=== PATIENT | male | born 1945 | race Two or more races ===

== ENCOUNTER 2020-02-19 18:09 | Inpatient (IN) | payer MEDICARE, MEDICAID ==
[~2020-02-19] VITALS: Ht 167.6 cm; Wt 91.3 kg
[2020-02-19] MEDS ORDERED: Piperacillin/Tazobactam 3.375 GM in NS 110 ML IVPB ONE (18:15)
[2020-02-19] MEDS ORDERED: Vancomycin 1.5 GM in NS 275 ML IVPB ONE (18:15)
--- NOTE | 2020-02-19 18:24 | NUR ---
ED Nurse Note: Patient was brought [facility]-heel wound(gangrene). Patient presented AAO x3, VSS at this time, skin is very warm to touch. Patient's fever 102.8 at bed side. ER MD aware
--- NOTE | 2020-02-19 18:54 | Emergency Room Report ---
History of Present Illness General Chief Complaint: Wound Recheck/Suture Removal Source: Patient Present Illness HPI 75-year-old male history of hypertension history of right foot amputation presents with left foot ulcer that has been worsening over the past 15 days, patient is brought in from an acute rehab facility for evaluation, patient denies any fevers or chills he notices a left foot pain no aggravating relieving factors severity is mild, constant patient versus a sharp pain patient presents for evaluation of the foot ulcer Allergies: Coded Allergies: No Known Allergies (Unverified , 02/19/20) COVID-19 Screening Contact w/high risk pt: Yes Recent Travel to affected area: No Experienced COVID-19 symptoms?: Yes COVID-19 symptoms experienced: Flu-Like Symptoms Patient History Past Medical History: see triage record Reviewed Nursing Documentation: PMH: Agreed; PSxH: Agreed Nursing Documentation-PMH Hx Diabetes: Yes History Of Psychiatric Problem: Yes - SCHIZO, ANXIETY Review of Systems All Other Systems: negative except mentioned in HPI Physical Exam Vital Signs Date Time Temp Pulse Resp B/P (MAP) Pulse Ox O2 Delivery O2 Flow Rate FiO2 02/19/20 18:10 101.5 99 12 129/74 (92) 92 Room Air Sp02 EP Interpretation: reviewed, normal General Appearance: well appearing, no apparent distress, alert Head: normocephalic, atraumatic Eyes: bilateral eye PERRL, bilateral eye EOMI ENT: uvula midline, moist mucus membranes Neck: supple, thyroid normal, supple/symm/no masses Respiratory: lungs clear, no respiratory distress, no retraction, no accessory muscle use Cardiovascular #1: normal peripheral pulses, regular rate, rhythm, no edema, no gallop, no murmur Gastrointestinal: non tender, soft, no guarding, no rebound Musculoskeletal: other - Right foot: Chavez's, 1+ PT DP, ulcer at the base of the foot, with foul order, breakdown, stage I with some drainage Neurologic: alert, oriented x3 Psychiatric: mood/affect normal Skin: no rash, warm/dry Medical Decision Making Diagnostic Impression: Primary Impression: Diabetic foot infection ER Course 75-year-old male presents with infected diabetic foot, will order labs, will start Zosyn and vancomycin, patient will be admitted to the hospital for evaluation and treatment. Patient with infected ulcer Abx, fluids. Patient admitted to Dr. Lamas Laboratory Tests Test 02/19/20 19:00 02/19/20 20:08 White Blood Count 14.9 K/UL (4.8-10.8) H Red Blood Count 4.44 M/UL (4.70-6.10) L Hemoglobin 12.6 G/DL (14.2-18.0) L Hematocrit 40.3 % (42.0-52.0) L Mean Corpuscular Volume 91 FL (80-99) Mean Corpuscular Hemoglobin 28.4 PG (27.0-31.0) Mean Corpuscular Hemoglobin Concent 31.3 G/DL (32.0-36.0) L Red Cell Distribution Width 14.3 % (11.6-14.8) Platelet Count 324 K/UL (150-450) Mean Platelet Volume 6.4 FL (6.5-10.1) L Neutrophils (%) (Auto) 82.1 % (45.0-75.0) H Lymphocytes (%) (Auto) 10.9 % (20.0-45.0) L Monocytes (%) (Auto) 5.9 % (1.0-10.0) Eosinophils (%) (Auto) 0.7 % (0.0-3.0) Basophils (%) (Auto) 0.5 % (0.0-2.0) Prothrombin Time 9.9 SEC (9.30-11.50) Prothrombin Time INR 0.9 (0.9-1.1) Activated Partial Thromboplast Time 37 SEC (23-33) H Sodium Level 138 MMOL/L (136-145) Potassium Level 4.0 MMOL/L (3.5-5.1) Chloride Level 99 MMOL/L (98-107) Carbon Dioxide Level 29 MMOL/L (21-32) Anion Gap 10 mmol/L (5-15) Blood Urea Nitrogen 35 mg/dL (7-18) H Creatinine 1.6 MG/DL (0.55-1.30) H Estimated Glomerular Filtration Rate 42.5 mL/min (>60) Glucose Level 123 MG/DL (74-106) H Lactic Acid Level 1.10 mmol/L (0.4-2.0) Calcium Level 9.3 MG/DL (8.5-10.1) Phosphorus Level 3.1 MG/DL (2.5-4.9) Magnesium Level 2.3 MG/DL (1.8-2.4) Total Bilirubin 0.3 MG/DL (0.2-1.0) Aspartate Amino Transferase (AST) 53 U/L (15-37) H Alanine Aminotransferase (ALT) 54 U/L (12-78) Alkaline Phosphatase 194 U/L (46-116) H Total Creatine Kinase 78 U/L (26-308) Creatine Kinase MB 1.8 NG/ML (0.0-3.6) Creatine Kinase MB Relative Index 2.3 Troponin I 0.000 ng/mL (0.000-0.056) Pro-B-Type Natriuretic Peptide 276 pg/mL (0-125) H Total Protein 8.8 G/DL (6.4-8.2) H Albumin 2.7 G/DL (3.4-5.0) L Globulin 6.1 g/dL Albumin/Globulin Ratio 0.4 (1.0-2.7) L Lipase 77 U/L (73-393) Urine Color Pale yellow Urine Appearance Clear Urine pH 6 (4.5-8.0) Urine Specific [place] 1.010 (1.005-1.035) Urine Protein 2+ (NEGATIVE) H Urine Glucose (UA) 1+ (NEGATIVE) H Urine Ketones Negative (NEGATIVE) Urine Blood 3+ (NEGATIVE) H Urine Nitrite Negative (NEGATIVE) Urine Bilirubin Negative (NEGATIVE) Urine Urobilinogen Normal MG/DL (0.0-1.0) Urine Leukocyte Esterase 3+ (NEGATIVE) H Urine RBC 2-4 /HPF (0 - 0) H Urine WBC Tntc /HPF (0 - 0) H Urine Squamous Epithelial Cells None /LPF (NONE/OCC) Urine Bacteria Few /HPF (NONE) EKG Diagnostic Results EKG Time: 19:42 EP Interpretation: NSR rate 98 qtc 411, right axis deviation, no acute st elevations Rhythm Strip Diag. Results Rhythm Strip Time: 19:50 EP Interpretation: yes Rate: 99 Rhythm: NSR, no PVC's, no ectopy Chest X-Ray Diagnostic Results Chest X-Ray Diagnostic Results : Chest X-Ray Ordered: Yes # of Views/Limited/Complete: 1 View Indication: Other - Preoperative EP Interpretation: Yes Interpretation: no consolidation, no effusion, no pneumothorax, no acute cardiopulmonary disease Impression: No acute disease Electronically Signed by: Rui Rivera MD Other X-Ray Diagnostic Results Other X-Ray Diagnostic Results : X-Ray ordered: left foot # of Views/Limited Vs Complete: 3 View Indication: Pain EP Interpretation: Yes Interpretation: no dislocation, no fractures, other - soft tissue defect noted at heel Impression: Other - soft tissue defect noted at heel Electronically Signed by: Rui Rivera MD Last Vital Signs Date Time Temp Pulse Resp B/P (MAP) Pulse Ox O2 Delivery O2 Flow Rate FiO2 02/19/20 18:10 101.5 99 12 129/74 (92) 92 Room Air Disposition: ADMITTED INPATIENT Condition: Stable Referrals: Soham Lamas MD (PCP) Rui Rivera MD February 19, 2020 18:54
[2020-02-19] MEDS ORDERED: Acetaminophen 500mg (ES) tab ORAL ONE (19:15)
--- NOTE | 2020-02-19 19:20 | NUR ---
ED Nurse Note: pt received from MICHELL Gomez. pt appears to be in stable condition with abx infusing per ERMD orders. pt is noted to have a fever, skin is warm to touch. ERMD notified.
[2020-02-19 19:24] LABS: BASOPHILS % (AUTO) 0.5 % (0.0-2.0); EOSINOPHILS % (AUTO) 0.7 % (0.0-3.0); HEMATOCRIT 40.3 % (42.0-52.0); HEMOGLOBIN 12.6 G/DL (14.2-18.0); LYMPHOCYTES % (AUTO) 10.9 % (20.0-45.0); MEAN CORPUSCULAR VOLUME 91 FL (80-99); MONOCYTES % (AUTO) 5.9 % (1.0-10.0); NEUTROPHILS % (AUTO) 82.1 % (45.0-75.0); PLATELET COUNT 324 K/UL (150-450); RED BLOOD COUNT 4.44 M/UL (4.70-6.10); RED CELL DISTRIBUTION WIDTH 14.3 % (11.6-14.8); WHITE BLOOD COUNT 14.9 K/UL (4.8-10.8)
[2020-02-19 19:30] LABS: ANION GAP 10 mmol/L (5-15); BLOOD UREA NITROGEN 35 mg/dL (7-18); CALCIUM 9.3 MG/DL (8.5-10.1); CARBON DIOXIDE 29 MMOL/L (21-32); CHLORIDE 99 MMOL/L (98-107); CREATININE 1.6 MG/DL (0.55-1.30); SODIUM 138 MMOL/L (136-145)
[2020-02-19 19:43] LABS: ALANINE AMINOTRANSFERASE 54 U/L (12-78); ALBUMIN 2.7 G/DL (3.4-5.0); ALBUMIN/GLOBULIN RATIO 0.4 (1.0-2.7); ALKALINE PHOSPHATASE 194 U/L (46-116); ASPARTATE AMINO TRANSFERASE 53 U/L (15-37); BILIRUBIN,TOTAL 0.3 MG/DL (0.2-1.0); CKMB 1.8 NG/ML (0.0-3.6); CREATINE KINASE 78 U/L (26-308); PHOSPHORUS 3.1 MG/DL (2.5-4.9)
--- NOTE | 2020-02-19 19:45 | NUR ---
ED Nurse Note: pt was approved by ISAAC to eat, he was provided with sandwich and juice for nourishment. tolerated well, continues to have abx running. pt refusing to remove clothes and dress into hospital gown at this moment. IV in L AC is patent and intact with abx running.
[2020-02-19 20:08] VITALS: BP 134/82
--- NOTE | 2020-02-19 20:10 | NUR ---
ED Nurse Note: pt's temp recheck is 102.0, ERMD notified. pt appears to be mildly diaphoretic, skin is warm to touch. vital signs on cardiac cath rn are otherwise stable. will continue to monitor
[2020-02-19 20:14] LABS: INR 0.9 (0.9-1.1)
[2020-02-19 20:37] LABS: APPEARANCE,URINE CLEAR; BILIRUBIN, URINE NEGATIVE (NEGATIVE); COLOR,URINE PALE YELLOW; GLUCOSE, URINE (UA) 1+ (NEGATIVE); KETONES,URINE NEGATIVE (NEGATIVE); LEUKOCYTE ESTERASE ,URINE 3+ (NEGATIVE); NITRITE,URINE NEGATIVE (NEGATIVE); PH,URINE 6 (4.5-8.0); PROTEIN,URINE 2+ (NEGATIVE); UROBILINOGEN,URINE NORMAL MG/DL (0.0-1.0)
[2020-02-19 21:17] VITALS: BP 134/82
--- NOTE | 2020-02-19 23:00 | NUR ---
NURSE NOTES: Receive report from [facility] ED. Pt arrived @ 2150 via gurney. AAO x 4, syriac speaking, on room air. Vitals 133/46, 86HR, 18RR, 97.9F, 95% noted. All belongings reviewed. R foot amputation and has wound. L heel wound noted. Picture taken. IV on LAC intact and patent. Fall risk education and orientation to the room given. Verbally understanding. Admitted with supra pubic cath but pt said it is not working and asking a urinal. Swabs for covid, mrsa, vre done from ED. Meds list from [facility] missing and called to the facility but nobody answered the phone. Admission orders received from Dr. Lamas. Bed locked, lowest position, side rails up, alarm on, call light within reach. Will continue to monitor.
[2020-02-20] VITALS: BP 94/57
[2020-02-20] MEDS: Piperacillin/Tazobactam 3.375 GM in NS 110 ML IVPB SCH ×3 (01:29→18:00)
[2020-02-20 04:00] VITALS: BP 102/59
--- NOTE | 2020-02-20 04:00 | History and Physical Report ---
DATE OF ADMISSION: 02/19/2020 HISTORY OF PRESENT ILLNESS: There is a 75-year-old male who has past medical history of diabetes, hypertension, peripheral vascular disease, status post BKA, came to the emergency room for having left foot ulcer and having cellulitis involving the . The patient possibly has osteomyelitis. His pain level is 10 x 10 today and has oozing from the wound. The patient is currently not bedridden, wheelchair bound. PAST MEDICAL HISTORY: Significant for hypertension, diabetes, peripheral vascular disease, status post BKA, depression, anxiety, and history of alcohol abuse. MEDICATIONS: See the list. ALLERGIES: NKA. FAMILY HISTORY: Noncontributory. SOCIAL HISTORY: The patient lives at assisted. Mostly he is sitting in the chair. No distress. PHYSICAL EXAMINATION: VITAL SIGNS: Blood pressure is 150/90, pulse 74, respirations 18 to 24, temperature no fever. SKIN: Good skin turgor. HEENT: NAD. CHEST: Bilaterally clear. CARDIOVASCULAR: Regular rhythm. No gallop. No murmur. ABDOMEN: Bowel soft. EXTREMITIES: Left foot ulcer on the plantar surface redness and cellulitis GENITOURINARY: Deferred. LABORATORY DATA: His laboratory sodium 138, potassium 4, BUN 35, creatinine 1.6, glucose 153, alkaline phosphate 194. BNP was 276. Albumin is 2.7. His white counts are 15,000, hemoglobin 13 and hematocrit 39. Urine showing 3+ blood and 3+ leukocyte esterase and WBC TNTC. ASSESSMENT: 1. Nonhealing ulcer on the left foot. 2. Rule out osteomyelitis. 3. Cellulitis. 4. Hypertension. 5. Diabetes. 6. Acute renal insufficiency. 7. Degenerative arthritis. 8. Chronic pain. 9. History of alcohol abuse. PLAN: We will admit on medical floor. Start IV antibiotics. Wound care. Consider surgery. Podiatry consult and continue sliding scale, Accu-Chek and consider also ID consult. Arsen Lamas M.D. DR: Janet JOB#: [id number] CC:
[2020-02-20] MEDS: NovoLOG Insulin Flexpen SUBQ SCH ×4 (05:21→20:42)
[2020-02-20] MEDS: Heparin 5000 units/ml inj SUBQ SCH ×3 (05:29→22:39)
--- NOTE | 2020-02-20 06:42 | NUR ---
NURSE NOTES: Spoke with Denise from [facility] and said they will send meds list sabi.
--- NOTE | 2020-02-20 07:23 | NUR ---
NURSE NOTES: Report received from Chastity GALARZA. Patient seen on rounds, AXOx4, not in distress, tolerating room air. Nurse reports patient had febrile episode overnight at ED but is now afebrile. PIV on left AC patent and intact. Awaiting wound evaluation for left heel DTI and right foot amputation eschar. Bed low and locked, siderails up x2, call light within reach, instructed to call nurse for assistance. Will continue to monitor.
--- NOTE | 2020-02-20 07:37 | NUR ---
HAND-OFF: Report given to MICHELL Cr.
[2020-02-20 08:00] VITALS: BP 112/58
[2020-02-20] MEDS: HYDROcodone/Acetamin 5/325 tab ORAL PRN (09:01)
--- NOTE | 2020-02-20 10:29 | NUR ---
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
--- NOTE | 2020-02-20 10:30 | NUR ---
CHARGE NURSE NOTE: Spoke with , notified him that pt needs an urology consult (suprapubic cath. is not working). He will see pt in the evening.
[2020-02-20] MEDS ORDERED: Gadavist 7.5mMol/7.5ml vial IV PRN (10:45)
--- NOTE | 2020-02-20 11:31 | NUR ---
NURSE NOTES: Dr. Martinez (podiatry) came to see patient. Updated on current ATB regimen and MRI orders. Received orders to treat patient's wound with betadine QD until MRI is done. Orders noted and carried out.
--- NOTE | 2020-02-20 11:34 | NUR ---
NURSE NOTES: Spoke with Ernie from MRI, they are not able to do MRI procedure until patient is negative for Covid. Charge nurse is aware.
[2020-02-20 12:00] VITALS: BP 107/65
[2020-02-20] MEDS ORDERED: ACETAMINOPHEN325 M1 ORAL (15:59)
[2020-02-20] MEDS ORDERED: LANTUS SOL100 UNIT/1 SUBQ (15:59)
[2020-02-20] MEDS ORDERED: ASCORBIC ACID500 MG ORAL (15:59)
[2020-02-20] MEDS ORDERED: CLONIDINE0.1 MG PO (15:59)
[2020-02-20] MEDS ORDERED: ASPIRIN EC81 MG ORAL (15:59)
[2020-02-20] MEDS ORDERED: ARTIFICIAL TEA1 EAC3 OP (15:59)
[2020-02-20] MEDS ORDERED: GABAPENTIN600 MG ORAL (15:59)
[2020-02-20] MEDS ORDERED: FUROSEMIDE40 MG ORAL (15:59)
[2020-02-20] MEDS ORDERED: DULCOLAX10 MG RC (15:59)
[2020-02-20] MEDS ORDERED: FLOMAX0.4 MG ORAL (15:59)
[2020-02-20 16:00] VITALS: BP 137/64
[2020-02-20] MEDS ORDERED: CEPHALEXIN500 M1 ORAL (16:01)
[2020-02-20] MEDS ORDERED: DUONEB 0.5-3(2.53 ML INH (16:01)
[2020-02-20] MEDS ORDERED: MILK OF MA400 MG/51 ORAL (16:01)
[2020-02-20] MEDS ORDERED: NORVASC10 MG ORAL (16:04)
[2020-02-20] MEDS ORDERED: MODAFINIL100 MG ORAL (16:04)
[2020-02-20] MEDS ORDERED: NOVOLOG100 UNITS1 SUBQ (16:04)
[2020-02-20] MEDS ORDERED: MULTIVITAMINS1 EAC8 ORAL (16:04)
--- NOTE | 2020-02-20 16:42 | NUR ---
CASE MANAGEMENT:INITIAL REVIEW 75 YR OLD MALE BIBA FROM [facility];WOUND RECHECK. SUTURE REMOVAL SI;INFECTED FOOT ULCER 102.8 99 12 129/74 92% ON RA WBC 14.9 BUN 35 CR 1.6 AST 53 ALK PHOS 194 ALB 2.7 UA+ PAROTEIN, GLUCOSE, BLOOD, LEUKOCYTE, RBC, WBC APTT 37 COVID-19 PCR-RESULT PENDING IS;VANCOMYCIN IV ONCE ZOSYN IV ONCE ADMITTED TO MED SURG @ 0557 ON 02/20/20 MED SURG STATUS DCP;FROM [facility]
[2020-02-20] MEDS ORDERED: Vancomycin 1.5gm/NS Premix IVPB SCH (19:00)
--- NOTE | 2020-02-20 19:24 | NUR ---
HAND-OFF: Report given to Daniela RN.
--- NOTE | 2020-02-20 19:30 | NUR ---
NURSE NOTES: RECEIVED PATIENT FROM MICHELL MON. PATIENT IS AWAKE, AAOX4, ON ROOM AIR, NO ACUTE DISTRESS NOTED. SUPRAPUBIC NOTED INTACT AND PATENT, NO BLEEDING AT SITE. LEFT HEEL DTI AND RIGHT FOOT ESCHAR OPEN TO AIR. IV IS INTACT AND PATENT. BED IS LOCKED AND LOW, BED ALARMS ACTIVE, SIDE RAILS UPX2 AND CALL LIGHT IS WITHIN REACH. WILL CONTINUE TO MONITOR.
[2020-02-20 20:00] VITALS: BP 123/77
--- NOTE | 2020-02-20 20:15 | Consultation ---
DATE OF CONSULTATION: 02/20/2020 INFECTIOUS DISEASES CONSULTATION CONSULTING PHYSICIAN: Aneudy Mclaughlin M.D. REFERRING PHYSICIAN: Soham Lamas M.D. REASON FOR CONSULTATION: Bilateral foot ulcer infection, to rule out osteomyelitis. HISTORY OF PRESENTING ILLNESS: This is a 75-year-old gentleman with history of diabetes, hypertension, peripheral vascular disease, who comes in with left foot ulcer, which is necrotic. There was a concern for osteomyelitis and an Infectious Diseases consultation has been obtained for antibiotics. PAST MEDICAL HISTORY: 1. History of diabetes. 2. Hypertension. 3. Peripheral vascular disease. SOCIAL HISTORY: He has a history of alcohol use. No history of smoking or drug use. FAMILY HISTORY: Unknown. REVIEW OF SYSTEMS: Unable to obtain currently. MEDICATIONS: As an inpatient, he is on IV vancomycin, Zosyn, insulin, subcutaneous heparin, Tylenol, and [place]. ALLERGIES: No known drug allergies. PHYSICAL EXAMINATION: VITAL SIGNS: Temperature 101.8, T-max of 102.8, pulse of 84, respiratory rate rate 20, blood pressure 112/58, O2 saturation of 93% on room air. HEENT: Pupils are equally reactive to light and accommodation. Mouth appears clean without thrush. NECK: Supple. No adenopathy. No JVD. CARDIOVASCULAR: Regular rate and rhythm. No murmurs. LUNGS: Clear to auscultation bilaterally. No crackles. No wheezes. ABDOMEN: Soft and nontender. No organomegaly. EXTREMITIES: No cyanosis, no clubbing, no edema. Left foot necrotic ulcer noted on the heel. LABORATORY AND DIAGNOSTIC DATA: White count 14.9, hemoglobin 12.6, hematocrit 40.3, MCV 91, platelet count of 324 with neutrophils of 82%. Sodium 138, potassium 4, chloride 99, bicarb 29, BUN 35, creatinine 1.6, glucose 123, calcium 9.3, total bilirubin 0.3, AST 53, ALT 54, and alkaline phosphatase 194. CK of 78, CK-MB 1.8, troponin 0, beta natriuretic peptide 276. Total protein 8.8, albumin 2.7, lipase of 77. UA is showing too numerous to count white cells. Urine cultures are negative. Blood cultures are pending. COVID-19 test is pending. ASSESSMENT: This is a 75-year-old gentleman with history of diabetes, hypertension, peripheral vascular disease, who comes in with: 1. Left foot ulcer infection would be concerned regarding underlying osteomyelitis. 2. We would like to rule out COVID-19 pneumonia. 3. Diabetes. 4. Hypertension. 5. Leukocytosis. PLAN: 1. Continue IV vancomycin and Zosyn. 2. We will order wound cultures from the left foot. 3. We will order an MRI of the left foot to rule out osteomyelitis. 4. We will follow up cultures and adjust antibiotics accordingly. I would like to thank Dr. Lamas for this consultation. Aneudy Mclaughlin M.D. DR: Marla JOB#: [id number] CC: Soham Lamas M.D.
--- NOTE | 2020-02-20 22:30 | Progress Note ---
DATE: 02/20/2020 SUBJECTIVE: This is an elderly 75-year-old male came with leg pain, gangrene and foot ulcer, which is nonhealing and having draining and redness. The patient is currently in the bed, doing fine. PHYSICAL EXAMINATION: VITAL SIGNS: Blood pressure 107/65, pulse 72, respirations 20, temperature 99.7 to 101.8. HEENT: AT/NC. EOMI. PERRLA. NECK: Supple. No JVD. CHEST: Bilateral decreased breath sounds. CARDIOVASCULAR: Regular rhythm. ABDOMEN: Soft. EXTREMITIES: CCE. NEUROLOGIC: The patient has generalized weakness. LABORATORY DATA: The patient has no labs today. His microbiology, urine cultures, no growth so far. ASSESSMENT: 1. Cellulitis of the foot, rule out osteomyelitis. 2. Diabetes. 3. Hypertension PLAN: 1. ____ the patient on vancomycin and Zosyn. 2. Continue [place] for severe pain and consider Podiatry consult and ID consult. Arsen Lamas M.D. DR: CARLOS ENRIQUE JOB#: [id number] CC:
[2020-02-21] VITALS (7 sets, daily range): BP systolic 109–143; BP diastolic 66–84
[2020-02-21] MEDS: Piperacillin/Tazobactam 3.375 GM in NS 110 ML IVPB SCH ×3 (02:16→17:35)
--- NOTE | 2020-02-21 03:44 | Consultation ---
DATE OF CONSULTATION: 02/20/2020 CONSULTING PHYSICIAN: Juan Pineda MD. REFERRING PHYSICIAN: Soham Lamas MD. REASON FOR CONSULTATION: Evaluation of suprapubic tube. HISTORY OF PRESENT ILLNESS: This is a 75-year-old male. He has multiple medical problems. He was admitted to the hospital because of foot ulcer, cellulitis, and possible osteomyelitis. He has had has some drainage from the wound. He is mostly bedridden and wheelchair bound. He has a history of BPH and neurogenic bladder. He has a suprapubic tube that apparently has been placed number of months ago. The patient does not know the name of the urologist. But according to his daughter, he was due for exchange of the suprapubic tube, which was postponed because of the COVID crisis. Apparently for some time now, the suprapubic tube has not been draining and he has been voiding per urethra. Rest of the history was obtained from the chart. PAST MEDICAL HISTORY: Significant for diabetes, hypertension, peripheral vascular disease, BPH history. PAST SURGICAL HISTORY: He has had right foot amputation. Other surgeries are unknown. MEDICATIONS: Current medication list in the hospital was reviewed. He is currently on vancomycin, Gadavist, NovoLog, heparin, Zosyn, Tylenol, hydrocodone. ALLERGIES: No known drug allergies. SOCIAL HISTORY: The patient is a resident of a snf. REVIEW OF SYSTEMS: As above. FAMILY HISTORY: Noncontributory. PHYSICAL EXAMINATION: GENERAL: Elderly male, in no acute distress. VITAL SIGNS: Temperature is 99.3. He did have a T-max of 101.8 earlier this morning. Blood pressure is 137/64, pulse 86, respirations 20. HEENT: Normocephalic. NECK: Supple. ABDOMEN: Soft. GENITOURINARY: 20-Cypriot suprapubic tube is in place. Testes are descended. LABORATORY DATA: BUN is 35, creatinine is 1.6. Baseline creatinine is unknown to me. White count is 14.9, hemoglobin 12.6, platelets are 324. His urinalysis on admission showed 2+ protein, 2 to 4 rbc's, too numerous to count wbc's. He had a urine culture from yesterday, which is no growth so far. There are no imaging studies on record. IMPRESSION: 1. Urinary retention history with chronic suprapubic tube. 2. BPH history. 3. Probable neurogenic bladder. 4. Hematuria. 5. Pyuria, rule out infection and colonization. 6. Proteinuria. 7. Renal insufficiency, possibly acute on chronic. PLAN AND DISCUSSION: I did evaluate the patient at the bedside. His existing suprapubic tube is 20-Cypriot. It was occluded. I was able to deflate the balloon. I was able to pull out the catheter with slight resistance and then I was able to reinsert a new 20-Cypriot suprapubic tube in good position in the bladder. The balloon was inflated with 30 mL of sterile water. I was able to irrigate the catheter and the position was satisfactory. He did have some cloudy urine with debris in there. This will be left to gravity drainage. He is to continue with antibiotics as ordered. We will follow up on the cultures. We will try to get some of his outpatient records. At some point electively, he needs to have a cystoscopy to evaluate the lower urinary tract. We will also consider renal imaging study. Thank you for this consultation. Juan Pineda M.D. DR: PIOTR JOB#: [id number] CC:
[2020-02-21] MEDS: NovoLOG Insulin Flexpen SUBQ SCH ×4 (05:35→20:15)
[2020-02-21] MEDS: Heparin 5000 units/ml inj SUBQ SCH ×3 (06:39→22:20)
--- NOTE | 2020-02-21 07:32 | NUR ---
HAND-OFF: Report given to MICHELL Cr .
--- NOTE | 2020-02-21 07:45 | NUR ---
NURSE NOTES: Report received from Daniela RN. Patient seen on rounds, AXOx4, not in distress, tolerating room air. Afebrile, PIV on right hand patent and intact. Suprapubic catheter secured and draining well. Bed low and locked, siderails up x2, call light within reach, instructed to call nurse for assistance. Will continue to monitor.
--- NOTE | 2020-02-21 08:44 | Consultation ---
DATE OF CONSULTATION: 02/20/2020 NOTE: POOR AUDIO. CONSULTING PHYSICIAN: Cornel Martinez DPM REFERRING PHYSICIAN: Soham Lamas MD. REASON FOR CONSULTATION: Ulceration to the left heel and foot stump. HISTORY OF PRESENT ILLNESS: This is a 75-year-old diabetic patient with history of amputation to the right foot, admitted to [facility] for evaluation and treatment. He was admitted to from the left heel and . PAST MEDICAL HISTORY: Per Dr. Lamas. PODIATRY EXAMINATION: VASCULAR: Dorsalis pedis and posterior tibial artery are nonpalpable. Capillary refilling time is less than 3 seconds. . MUSCULOSKELETAL: . Range of motion is decreased. Muscle strength noted to be decreased bilaterally . Surgical site is healed. DERMATOLOGICAL: Attention was directed to the right foot ulnar aspect of the distal stump where an was identified . left heel necrotic ulceration noted at the . It is dry. No purulent discharge. to the proximal mid foot area. There is pain up on palpation of the necrotic tissue consistent with infection. There is no sign of abscesses or . There is no open undermining and . ASSESSMENT AND PLAN: . Culture is pending. Order was given for MRI of the left foot. Order was written for application of Betadine to the foot area. . Cornel Martinez D.P.M DR: Alfredo JOB#: [id number] CC:
--- NOTE | 2020-02-21 09:28 | Urology Progress Note ---
Assessment/Plan Assessment/Plan: 1. Urinary retention history with chronic suprapubic tube. 2. BPH history. 3. Probable neurogenic bladder. 4. Hematuria. 5. Pyuria, rule out infection and colonization. 6. Proteinuria. 7. Renal insufficiency, possibly acute on chronic. monitor clinically maintain SPT, last exchanged 02/19 hand irrigated and do PRN monitor renal fxn abx as ordered f/u on cx's cysto later consider renal imaging study add proscar Subjective Allergies: Coded Allergies: No Known Allergies (Unverified , 02/19/20) Subjective all noted, feels fair Objective Last 24 Hour Vital Signs Date Time Temp Pulse Resp B/P (MAP) Pulse Ox O2 Delivery O2 Flow Rate FiO2 02/21/20 04:00 97.8 79 22 120/72 (88) 98 02/21/20 03:15 97.8 02/21/20 00:00 101.7 78 20 116/66 (83) 98 02/20/20 20:00 102.2 95 26 123/77 (92) 94 02/20/20 18:53 Room Air 02/20/20 16:00 99.3 86 20 137/64 (88) 97 02/20/20 12:00 99.7 72 20 107/65 (79) 95 Intake and Output 02/20/20 02/21/20 19:00 07:00 Intake Total 637.5 ml 800.0 ml Output Total 400 ml Balance 637.5 ml 400.0 ml Intake Oral 500 ml IV Total 137.5 ml 440.0 ml Other 360 ml Output Urine Total 400 ml # Voids 2 Microbiology Date/Time Source Procedure Growth Status 02/19/20 19:00 Blood Blood Culture - Preliminary NO GROWTH AFTER 24 HOURS Resulted 02/19/20 20:08 Urine,Clean Catch Urine Culture - Preliminary Gram Negative Bacillus 1 Resulted Current Medications Medications (Trade) Dose Ordered Sig/Parish Route PRN Reason Start Time Stop Time Status Last Admin Dose Admin Acetaminophen (Tylenol) 650 mg Q4H PRN ORAL mild pain and fever 02/19/20 23:15 03/20/20 23:14 02/21/20 02:45 Acetaminophen/ Hydrocodone Bitart ([place] 5/325) 1 tab Q4H PRN ORAL Severe Pain (Pain Scale 7-10) 02/19/20 23:15 02/26/20 23:14 02/20/20 09:01 Dextrose (Dextrose 50%) 25 ml Q30M PRN IV Hypoglycemia 02/19/20 23:15 05/19/20 23:14 Dextrose (Dextrose 50%) 50 ml Q30M PRN IV Hypoglycemia 02/19/20 23:15 05/19/20 23:14 Gadobutrol (Gadavist) 7.5 mmol NOW PRN IV Radiology Procedure 02/20/20 10:45 02/24/20 10:33 Heparin Sodium (Porcine) (Heparin 5000 units/ml) 5,000 units EVERY 8 HOURS SUBQ 02/20/20 06:00 04/05/20 05:59 02/21/20 06:39 Insulin Aspart (NovoLOG) BEFORE MEALS AND HS SUBQ 02/20/20 06:30 05/20/20 06:29 02/20/20 20:42 Piperacillin Sod/ Tazobactam Sod 3.375 gm/Sodium Chloride 110 ml @ 27.5 mls/hr Q8H IVPB 02/20/20 02:00 02/27/20 01:59 02/21/20 02:16 Vancomycin HCl (Vanco rx to dose) 1 ea DAILY PRN MISC Per rx protocol 02/19/20 23:15 03/20/20 23:14 Vancomycin/Sodium Chloride 275 ml @ 137.5 mls/ hr Q24H IVPB 02/20/20 19:00 02/25/20 18:59 02/20/20 20:37 Height (Feet): 5 Height (Inches): 8.00 Weight (Pounds): 212 Objective exam stable SPT in place urine yellow/aris with debris Juan Pineda MD February 21, 2020 09:28
[2020-02-21] MEDS: Milk of Magnesia 30ml Ud ORAL PRN (11:37)
--- NOTE | 2020-02-21 12:53 | Infectious Diseases Prog Note ---
Assessment/Plan Assessment/Plan A; 1. Left foot ulcer infection would be concerned regarding underlying osteomyelitis. 2. We would like to rule out COVID-19 pneumonia. 3. Diabetes. 4. Hypertension. 5. Sepsis 6. UTI PLAN: 1. Continue IV vancomycin and Zosyn. 2. We will f/u wound cultures from the left foot. 3. We will f/u MRI of the left foot to rule out osteomyelitis. 4. We will follow up cultures and adjust antibiotics accordingly. Subjective ROS Limited/Unobtainable: Yes Constitutional: Reports: fever Respiratory: Reports: no symptoms Cardiovascular: Reports: no symptoms Gastrointestinal/Abdominal: Reports: no symptoms Genitourinary: Reports: no symptoms Musculoskeletal: Reports: pain, other - left heel Allergies: Coded Allergies: No Known Allergies (Unverified , 02/19/20) Objective Vital Signs Last 24 Hour Vital Signs Date Time Temp Pulse Resp B/P (MAP) Pulse Ox O2 Delivery O2 Flow Rate FiO2 02/21/20 12:00 100.0 79 20 133/74 (93) 97 02/21/20 09:00 Room Air 02/21/20 08:00 97.5 80 19 131/83 (99) 95 02/21/20 04:00 97.8 79 22 120/72 (88) 98 02/21/20 03:15 97.8 02/21/20 00:00 101.7 78 20 116/66 (83) 98 02/20/20 20:00 102.2 95 26 123/77 (92) 94 02/20/20 18:53 Room Air 02/20/20 16:00 99.3 86 20 137/64 (88) 97 Height (Feet): 5 Height (Inches): 8.00 Weight (Pounds): 212 General Appearance: no acute distress HEENT: mucous membranes moist Respiratory/Chest: lungs clear Cardiovascular: normal rate Abdomen: soft, non tender Extremities: no edema, other - right foot amputated Skin: ulcers, other - necrotic ulcer on left heel Neurologic/Psychiatric: alert, oriented x 3, responsive Microbiology Date/Time Source Procedure Growth Status 02/19/20 19:00 Blood Blood Culture - Preliminary NO GROWTH AFTER 24 HOURS Resulted 02/19/20 18:45 Blood Blood Culture - Preliminary NO GROWTH AFTER 24 HOURS Resulted 02/19/20 20:08 Urine,Clean Catch Urine Culture - Preliminary Gram Negative Bacillus 1 Resulted 02/20/20 11:19 Foot Left Gram Stain Pending Resulted 02/20/20 11:19 Wound Culture - Preliminary Staphylococcus Aureus Gram Negative Bacillus 1 Resulted Current Medications Medications (Trade) Dose Ordered Sig/Parish Route PRN Reason Start Time Stop Time Status Last Admin Dose Admin Acetaminophen (Tylenol) 650 mg Q4H PRN ORAL mild pain and fever 02/19/20 23:15 03/20/20 23:14 02/21/20 02:45 Acetaminophen/ Hydrocodone Bitart ([place] 5/325) 1 tab Q4H PRN ORAL Severe Pain (Pain Scale 7-10) 02/19/20 23:15 02/26/20 23:14 02/20/20 09:01 Bisacodyl (Dulcolax) 10 mg DAILYPRN PRN RECTAL Constipation 02/21/20 11:30 05/21/20 11:29 Dextrose (Dextrose 50%) 25 ml Q30M PRN IV Hypoglycemia 02/19/20 23:15 05/19/20 23:14 Dextrose (Dextrose 50%) 50 ml Q30M PRN IV Hypoglycemia 02/19/20 23:15 05/19/20 23:14 Gadobutrol (Gadavist) 7.5 mmol NOW PRN IV Radiology Procedure 02/20/20 10:45 02/24/20 10:33 Heparin Sodium (Porcine) (Heparin 5000 units/ml) 5,000 units EVERY 8 HOURS SUBQ 02/20/20 06:00 04/05/20 05:59 02/21/20 06:39 Insulin Aspart (NovoLOG) BEFORE MEALS AND HS SUBQ 02/20/20 06:30 05/20/20 06:29 02/21/20 11:38 Magnesium Hydroxide (Mom) 30 ml BIDPRN PRN ORAL Constipation 02/21/20 11:30 03/22/20 11:29 02/21/20 11:37 Piperacillin Sod/ Tazobactam Sod 3.375 gm/Sodium Chloride 110 ml @ 27.5 mls/hr Q8H IVPB 02/20/20 02:00 02/27/20 01:59 02/21/20 10:34 Vancomycin HCl (Vanco rx to dose) 1 ea DAILY PRN MISC Per rx protocol 02/19/20 23:15 03/20/20 23:14 Vancomycin/Sodium Chloride 275 ml @ 137.5 mls/ hr Q24H IVPB 02/20/20 19:00 02/25/20 18:59 02/20/20 20:37 Hill Rodriguez MD February 21, 2020 12:53
--- NOTE | 2020-02-21 19:05 | NUR ---
HAND-OFF: Report given to Jamel GALARZA.
--- NOTE | 2020-02-21 19:15 | NUR ---
NURSE NOTES: Pt. received from MICHELL Cr. Pt. AAOx4, on room air, no complaints of pain and no indications of respiratory distress. IV right hand 22g noted, intact and patent. Suprapubic catheter intact and secured, draining yellow urine well. Bed is low and locked, side rails x2 up, bed alarm active, and call light is in reach. Will continue with plan of care.
--- NOTE | 2020-02-21 21:15 | Progress Note ---
DATE: 02/21/2020 SUBJECTIVE: The patient is in bed, doing okay. Surgery consult was obtained. The patient is waiting for COVID results for further surgical intervention. PHYSICAL EXAMINATION: VITAL SIGNS: Blood pressure 133/74, pulse 79, T-max 100. HEENT: NAD. CHEST: Bilaterally few crackles. CARDIOVASCULAR: Regular rhythm. ABDOMEN: Soft. EXTREMITIES: He has foot ulcer. LABORATORY DATA: The patient has no labs. ASSESSMENT: 1. Foot ulcer. 2. Cellulitis. 3. Hypertension. 4. Diabetes. PLAN: His microbiology wound culture growing gram-negative bacilli. We will continue antibiotics. Continue wound care and ID is on consult. Arsen Lamas M.D. DR: CARLOS ENRIQUE JOB#: [id number] CC:
[2020-02-22] VITALS: BP 139/82
[2020-02-22] MEDS: Piperacillin/Tazobactam 3.375 GM in NS 110 ML IVPB SCH ×3 (02:05→17:50)
[2020-02-22 04:00] VITALS: BP 143/82
[2020-02-22] MEDS: Heparin 5000 units/ml inj SUBQ SCH ×3 (05:48→21:10)
[2020-02-22] MEDS: NovoLOG Insulin Flexpen SUBQ SCH ×4 (06:02→21:10)
--- NOTE | 2020-02-22 07:30 | NUR ---
HAND-OFF: Report given to MICHELL Mcnally.
--- NOTE | 2020-02-22 07:58 | NUR ---
pt is in the bed alert and awake. no SOB noted. Denies any pain at this time. no acute distress noted. call light placed within reach, will continue to follow plan of care.
[2020-02-22 08:00] VITALS: BP 132/77
--- NOTE | 2020-02-22 09:07 | Urology Progress Note ---
Assessment/Plan Assessment/Plan: 1. Urinary retention history with chronic suprapubic tube. 2. BPH history. 3. Probable neurogenic bladder. 4. Hematuria. 5. Pyuria, rule out infection and colonization. 6. Proteinuria. 7. Renal insufficiency, possibly acute on chronic. monitor clinically maintain SPT, last exchanged 02/19 hand irrigated and do PRN monitor renal fxn abx as ordered f/u on cx's cysto later consider renal imaging study proscar added Subjective Allergies: Coded Allergies: No Known Allergies (Unverified , 02/19/20) Subjective all noted, feels fair Objective Last 24 Hour Vital Signs Date Time Temp Pulse Resp B/P (MAP) Pulse Ox O2 Delivery O2 Flow Rate FiO2 02/22/20 05:10 99.1 02/22/20 04:00 100.0 82 24 143/82 (102) 97 02/22/20 00:00 99.1 82 22 139/82 (101) 97 02/21/20 20:00 101.5 73 20 109/69 (82) 94 02/21/20 18:29 Room Air 02/21/20 18:28 99.1 78 20 143/84 (103) 96 02/21/20 16:00 102.4 78 20 143/84 (103) 96 02/21/20 12:00 100.0 79 20 133/74 (93) 97 Intake and Output 02/21/20 02/22/20 19:00 07:00 Intake Total 482.5 ml 437.5 ml Output Total 900 ml 1500 ml Balance -417.5 ml -1062.5 ml Intake Oral 400 ml 300 ml IV Total 82.5 ml 137.5 ml Output Urine Total 900 ml 1500 ml # Bowel Movements 2 Microbiology Date/Time Source Procedure Growth Status 02/19/20 19:00 Blood Blood Culture - Preliminary NO GROWTH AFTER 48 HOURS Resulted 02/19/20 19:00 Nasopharynx Coronavirus COVID-19 PCR (EVETTE) - Final Complete 02/19/20 20:08 Urine,Clean Catch Urine Culture - Final Pseudomonas Aeruginosa Complete 02/20/20 11:19 Foot Left Gram Stain - Final Resulted 02/20/20 11:19 Wound Culture - Preliminary Staphylococcus Aureus Gram Negative Bacillus 1 Resulted Current Medications Medications (Trade) Dose Ordered Sig/Parish Route PRN Reason Start Time Stop Time Status Last Admin Dose Admin Acetaminophen (Tylenol) 650 mg Q4H PRN ORAL mild pain and fever 02/19/20 23:15 03/20/20 23:14 02/22/20 04:40 Acetaminophen/ Hydrocodone Bitart ([place] 5/325) 1 tab Q4H PRN ORAL Severe Pain (Pain Scale 7-10) 02/19/20 23:15 02/26/20 23:14 02/20/20 09:01 Bisacodyl (Dulcolax) 10 mg DAILYPRN PRN RECTAL Constipation 02/21/20 11:30 05/21/20 11:29 02/21/20 15:48 Dextrose (Dextrose 50%) 25 ml Q30M PRN IV Hypoglycemia 02/19/20 23:15 05/19/20 23:14 Dextrose (Dextrose 50%) 50 ml Q30M PRN IV Hypoglycemia 02/19/20 23:15 05/19/20 23:14 Finasteride (Proscar) 5 mg DAILY ORAL 02/22/20 09:00 05/22/20 08:59 Gadobutrol (Gadavist) 7.5 mmol NOW PRN IV Radiology Procedure 02/20/20 10:45 02/24/20 10:33 Heparin Sodium (Porcine) (Heparin 5000 units/ml) 5,000 units EVERY 8 HOURS SUBQ 02/20/20 06:00 04/05/20 05:59 02/22/20 05:48 Insulin Aspart (NovoLOG) BEFORE MEALS AND HS SUBQ 02/20/20 06:30 05/20/20 06:29 02/21/20 20:15 Magnesium Hydroxide (Mom) 30 ml BIDPRN PRN ORAL Constipation 02/21/20 11:30 03/22/20 11:29 02/21/20 11:37 Piperacillin Sod/ Tazobactam Sod 3.375 gm/Sodium Chloride 110 ml @ 27.5 mls/hr Q8H IVPB 02/20/20 02:00 02/27/20 01:59 02/22/20 02:05 Vancomycin HCl (Vanco rx to dose) 1 ea DAILY PRN MISC Per rx protocol 02/19/20 23:15 03/20/20 23:14 Vancomycin/Sodium Chloride 275 ml @ 137.5 mls/ hr ONCE ONCE IVPB 02/22/20 10:00 02/22/20 11:59 Laboratory Tests 02/22/20 04:30: Vancomycin Level Trough 12.8H Height (Feet): 5 Height (Inches): 8.00 Weight (Pounds): 212 Objective exam stable SPT in place urine yellow/aris with debris Juan Pineda MD February 22, 2020 09:07
[2020-02-22] MEDS ORDERED: Vancomycin 1.5gm/NS Premix IVPB ONE (10:00)
--- NOTE | 2020-02-22 10:45 | NUR ---
RD ASSESSMENT & RECOMMENDATIONS SEE CARE ACTIVITY FOR COMPLETE ASSESSMENT DAILY ESTIMATED NEEDS: Needs based on wound, DM/ 73kg 25-30 kcals/kg 4279-2225 total kcals 1.25-1.5 g protein/kg 91-109 g total protein 25-30 mL/kg 2211-2993 total fluid mLs NUTRITION DIAGNOSIS: Increased protein intake needs R/T wound healing as evidenced by admitted w/ lt heel necrotic ulcer. CURRENT DIET:[facility] MED PO DIET RECOMMENDATIONS: [facility] MED ADDITIONAL RECOMMENDATIONS: * Calibrated bedscale wt for accurate CBW * Wound healing- MVI x 1, Vit C 500mg QD - Deven BID as tolerated * Monitor BG control * Monitor for continued good PO intake * High prot snacks BID as tolerated
--- NOTE | 2020-02-22 11:46 | Infectious Diseases Prog Note ---
"Assessment/Plan Assessment/Plan antibiotics : vancomycin, zosyn A 1. MRSA | proteus foot ulcer infection, r/o osteomyelitis 2. pseudomonas UTI 3. diabetes mellitus 4. hypertension 5. leucocytosis 6. COVID 19 negative P 1. continue iv vancomycin, zosyn 2. will follow up cultures 3. MRI pending Subjective ROS Limited/Unobtainable: Yes Allergies: Coded Allergies: No Known Allergies (Unverified , 02/19/20) Objective Vital Signs Last 24 Hour Vital Signs Date Time Temp Pulse Resp B/P (MAP) Pulse Ox O2 Delivery O2 Flow Rate FiO2 02/22/20 09:00 Room Air 02/22/20 08:00 97.3 72 20 132/77 (95) 98 02/22/20 05:10 99.1 02/22/20 04:00 100.0 82 24 143/82 (102) 97 02/22/20 00:00 99.1 82 22 139/82 (101) 97 02/21/20 20:00 101.5 73 20 109/69 (82) 94 02/21/20 18:29 Room Air 02/21/20 18:28 99.1 78 20 143/84 (103) 96 02/21/20 16:00 102.4 78 20 143/84 (103) 96 02/21/20 12:00 100.0 79 20 133/74 (93) 97 Height (Feet): 5 Height (Inches): 8.00 Weight (Pounds): 212 Respiratory/Chest: lungs clear Cardiovascular: normal rate, regular rhythm, no gallop/murmur Abdomen: soft, non tender Extremities: no edema, other - left heel necrotic, right foot ulcer necrotic Microbiology Date/Time Source Procedure Growth Status 02/19/20 19:00 Blood Blood Culture - Preliminary NO GROWTH AFTER 48 HOURS Resulted 02/19/20 18:45 Blood Blood Culture - Preliminary NO GROWTH AFTER 48 HOURS Resulted 02/19/20 19:00 Nasopharynx Coronavirus COVID-19 PCR (EVETTE) - Final Complete 02/19/20 20:08 Urine,Clean Catch Urine Culture - Final Pseudomonas Aeruginosa Complete 02/20/20 11:19 Foot Left Gram Stain - Final Resulted 02/20/20 11:19 Wound Culture - Preliminary Staphylococcus Aureus - Mrsa Proteus Mirabilis Resulted Laboratory Tests Test 02/22/20 04:30 Vancomycin Level Trough 12.8 ug/mL (5.0-12.0) H Current Medications Medications (Trade) Dose Ordered Sig/Parish Route PRN Reason Start Time Stop Time Status Last Admin Dose Admin Acetaminophen (Tylenol) 650 mg Q4H PRN ORAL mild pain and fever 02/19/20 23:15 03/20/20 23:14 02/22/20 04:40 Acetaminophen/ Hydrocodone Bitart ([place] 5/325) 1 tab Q4H PRN ORAL Severe Pain (Pain Scale 7-10) 02/19/20 23:15 02/26/20 23:14 02/20/20 09:01 Bisacodyl (Dulcolax) 10 mg DAILYPRN PRN RECTAL Constipation 02/21/20 11:30 05/21/20 11:29 02/21/20 15:48 Dextrose (Dextrose 50%) 25 ml Q30M PRN IV Hypoglycemia 02/19/20 23:15 05/19/20 23:14 Dextrose (Dextrose 50%) 50 ml Q30M PRN IV Hypoglycemia 02/19/20 23:15 05/19/20 23:14 Finasteride (Proscar) 5 mg DAILY ORAL 02/22/20 09:00 05/22/20 08:59 02/22/20 08:59 Gadobutrol (Gadavist) 7.5 mmol NOW PRN IV Radiology Procedure 02/20/20 10:45 02/24/20 10:33 Heparin Sodium (Porcine) (Heparin 5000 units/ml) 5,000 units EVERY 8 HOURS SUBQ 02/20/20 06:00 04/05/20 05:59 02/22/20 05:48 Insulin Aspart (NovoLOG) BEFORE MEALS AND HS SUBQ 02/20/20 06:30 05/20/20 06:29 02/21/20 20:15 Magnesium Hydroxide (Mom) 30 ml BIDPRN PRN ORAL Constipation 02/21/20 11:30 03/22/20 11:29 02/21/20 11:37 Piperacillin Sod/ Tazobactam Sod 3.375 gm/Sodium Chloride 110 ml @ 27.5 mls/hr Q8H IVPB 02/20/20 02:00 02/27/20 01:59 02/22/20 11:00 Vancomycin HCl (Vanco rx to dose) 1 ea DAILY PRN MISC Per rx protocol 02/19/20 23:15 03/20/20 23:14 Vancomycin/Sodium Chloride 275 ml @ 137.5 mls/ hr ONCE ONCE IVPB 02/22/20 10:00 02/22/20 11:59 02/22/20 10:03 Aneudy Mclaughlin MD February 22, 2020 11:46"
--- NOTE | 2020-02-22 11:48 | NUR ---
CASE MANAGEMENT: REVIEW 02/22/20 SI;INFECTED FOOT ULCER . MRSA + CARRIER 100.0 82 24 143/82 97% ON RA IS;VANCOMYCIN IV ONCE ZOSYN IV ONCE PROSCAR PO QD HEPARIN SQ TID \:4E MED SURG STATUS DCP: [facility] WHEN STABLE PLAN: COVID-19 SWAB TODAY WOUND CARE MRI -PENDING CLINICALS FAXED TO FACILITY FOR POSSIBLE DC OVER WEEKEND Addendum: 02/22/20 at 1158 by MARTHA GOODEN LVN WOUND CX GROWING MRSA, STAPH AUREUS AND PROTEUS MIRABILIS
[2020-02-22 12:00] VITALS: BP 131/80
--- NOTE | 2020-02-22 12:23 | NUR ---
DISCHARGE PLANNING PATIENT REFERRED BACK TO [facility] T: [phone] F: [phone] CM WILL F/U ON DC AND AVAILABLE BED
[2020-02-22 16:00] VITALS: BP 137/75
--- NOTE | 2020-02-22 16:30 | Diagnostic Imaging Report ---
EXAM: X-RAY XRAY Foot Complete L CLINICAL HISTORY: Foot pain. COMPARISON: None FINDINGS: Total of 4 views of the left foot were obtained. Patient is status post amputation of the third toe. Diffuse osteopenia noted. Degenerative changes noted particularly at the first interphalangeal joint and first metatarsophalangeal joint. There is no acute fracture, bony lesions or erosions. Joint spaces are unremarkable. On the lateral view, there is questionable subtle air lucency is noted at the heel just posterior and inferior to the calcaneus. IMPRESSION: STATUS POST AMPUTATION OF THE THIRD TOE. DEGENERATIVE CHANGES PARTICULARLY OF THE GREAT TOE. NO ACUTE OSSEOUS ABNORMALITY. SUBTLE LOW DENSITIES RESEMBLING AIR LUCENCIES NOTED IN THE SOFT TISSUE AT THE HEEL PAD. QUESTION FOCAL SOFT TISSUE INFECTION.
--- NOTE | 2020-02-22 16:30 | Diagnostic Imaging Report ---
Procedure: XRAY Chest 1v Reason for study: Chest pain Comparison films: None. FINDINGS: Right hemidiaphragm is elevated. Vascularity is normal. Mild densities left midlung noted. There is cardiomegaly. CP angles are sharp. The bony thorax appear unremarkable. IMPRESSION: Mild left mid lung densities perhaps focal early infiltrate.
--- NOTE | 2020-02-22 19:12 | NUR ---
HAND-OFF: Report given to Jose R.
--- NOTE | 2020-02-22 19:37 | NUR ---
NURSE NOTES: Patient in bed, awake, alert and able to make needs known. Bulgarian speaking. Kept clean and comfortable. Bed in low and locked position. Provided safe environment. No complaint of pain or discomfort noted. Respiration is even and unlabored. Skin is warm and dry. Noted with lower extremity dressing. call light is at bedside. Will continue plan of care.
[2020-02-22 20:00] VITALS: BP 133/81
--- NOTE | 2020-02-22 23:30 | Progress Note ---
DATE: 02/22/2020 SUBJECTIVE: This is elderly male, currently lying in bed. He is comfortable, doing fine. PHYSICAL EXAMINATION: VITAL SIGNS: Blood pressure 133/70, pulse 74, respirations 18, and no fever. HEENT: NAD. CHEST: Bilaterally clear. CARDIOVASCULAR: Regular rhythm. ABDOMEN: Soft. EXTREMITIES: CCE. NEUROLOGICAL: The patient is no focal deficit GENITOURINARY: Deferred. LABORATORY DATA: Not available. ASSESSMENT: 1. Foot ulcer. 2. Osteomyelitis. 3. Hypertension. 4. Diabetes. 5. Dementia. PLAN: We will currently continue antibiotics. Continue bronchodilator treatments. Wound care was discussed with charge nurse. Arsen Lamas M.D. DR: Janet JOB#: [id number] CC:
[2020-02-23] VITALS (7 sets, daily range): BP systolic 113–148; BP diastolic 61–95
[2020-02-23] MEDS: HYDROcodone/Acetamin 5/325 tab ORAL PRN ×4 (02:20→20:15)
[2020-02-23] MEDS: Piperacillin/Tazobactam 3.375 GM in NS 110 ML IVPB SCH ×3 (02:30→18:28)
[2020-02-23 06:06] LABS: BASOPHILS % (AUTO) 0.2 % (0.0-2.0); EOSINOPHILS % (AUTO) 2.2 % (0.0-3.0); HEMATOCRIT 34.8 % (42.0-52.0); HEMOGLOBIN 11.8 G/DL (14.2-18.0); LYMPHOCYTES % (AUTO) 13.5 % (20.0-45.0); MEAN CORPUSCULAR VOLUME 85 FL (80-99); MONOCYTES % (AUTO) 7.9 % (1.0-10.0); NEUTROPHILS % (AUTO) 76.1 % (45.0-75.0); PLATELET COUNT 395 K/UL (150-450); RED CELL DISTRIBUTION WIDTH 12.6 % (11.6-14.8); WHITE BLOOD COUNT 15.7 K/UL (4.8-10.8)
[2020-02-23 06:20] LABS: BLOOD UREA NITROGEN 19 mg/dL (7-18); CALCIUM 8.7 MG/DL (8.5-10.1); CARBON DIOXIDE 26 MMOL/L (21-32); CHLORIDE 102 MMOL/L (98-107); CREATININE 1.3 MG/DL (0.55-1.30); POTASSIUM 4.4 MMOL/L (3.5-5.1); SODIUM 136 MMOL/L (136-145)
[2020-02-23] MEDS: Heparin 5000 units/ml inj SUBQ SCH ×3 (06:20→21:35)
[2020-02-23] MEDS: NovoLOG Insulin Flexpen SUBQ SCH ×4 (06:20→20:19)
--- NOTE | 2020-02-23 07:10 | NUR ---
NURSE NOTES: Received report from MICHELL Domingeuz. Patient alert, mostly Greek speaking. Patient on room air, no signs of distress or labored breathing. IV intact, patent, and running TKO. Suprapubic catheter intact, patent, and draining urine. Bed in lowest position with call light in reach. Will continue with plan of care.
--- NOTE | 2020-02-23 07:12 | NUR ---
HAND-OFF: Report given to Gwyn Portillo.
[2020-02-23] MEDS ORDERED: Vancomycin 1gm in D5W 275ml IVPB SCH (09:00)
--- NOTE | 2020-02-23 10:02 | Urology Progress Note ---
Assessment/Plan Assessment/Plan: 1. Urinary retention history with chronic suprapubic tube. 2. BPH history. 3. Probable neurogenic bladder. 4. Hematuria. 5. Pyuria, rule out infection and colonization. 6. Proteinuria. 7. Renal insufficiency, possibly acute on chronic. monitor clinically maintain SPT, last exchanged 02/19 hand irrigated and do PRN monitor renal fxn abx as ordered f/u on blood cx cysto later consider renal imaging study proscar added Subjective Allergies: Coded Allergies: No Known Allergies (Unverified , 02/19/20) Subjective all noted, feels fair Objective Last 24 Hour Vital Signs Date Time Temp Pulse Resp B/P (MAP) Pulse Ox O2 Delivery O2 Flow Rate FiO2 02/23/20 08:00 97.2 69 20 113/75 (88) 95 02/23/20 04:00 98.0 71 20 136/61 (86) 97 02/23/20 00:00 98.4 90 19 148/95 (112) 94 02/22/20 21:00 Room Air 02/22/20 20:00 98.6 78 19 133/81 (98) 97 02/22/20 16:00 97.9 78 20 137/75 (95) 96 02/22/20 12:00 97.7 71 20 131/80 (97) 95 Intake and Output 02/22/20 02/23/20 19:00 07:00 Intake Total 450 ml 220.0 ml Output Total 1400 ml 650 ml Balance -950 ml -430.0 ml Intake Oral 450 ml IV Total 220.0 ml Output Urine Total 1400 ml 650 ml # Voids 1 # Bowel Movements 2 Microbiology Date/Time Source Procedure Growth Status 02/19/20 19:00 Blood Blood Culture - Preliminary NO GROWTH AFTER 72 HOURS Resulted 02/19/20 19:00 Nasopharynx Coronavirus COVID-19 PCR (EVETTE) - Final Complete 02/19/20 20:08 Urine,Clean Catch Urine Culture - Final Pseudomonas Aeruginosa Complete 02/20/20 11:19 Foot Left Gram Stain - Final Resulted 02/20/20 11:19 Wound Culture - Preliminary Staphylococcus Aureus - Mrsa Proteus Mirabilis Resulted Current Medications Medications (Trade) Dose Ordered Sig/Parish Route PRN Reason Start Time Stop Time Status Last Admin Dose Admin Acetaminophen (Tylenol) 650 mg Q4H PRN ORAL mild pain and fever 02/19/20 23:15 03/20/20 23:14 02/22/20 04:40 Acetaminophen/ Hydrocodone Bitart ([place] 5/325) 1 tab Q4H PRN ORAL Severe Pain (Pain Scale 7-10) 02/19/20 23:15 02/26/20 23:14 02/23/20 07:03 Bisacodyl (Dulcolax) 10 mg DAILYPRN PRN RECTAL Constipation 02/21/20 11:30 05/21/20 11:29 02/21/20 15:48 Dextrose (Dextrose 50%) 25 ml Q30M PRN IV Hypoglycemia 02/19/20 23:15 05/19/20 23:14 Dextrose (Dextrose 50%) 50 ml Q30M PRN IV Hypoglycemia 02/19/20 23:15 05/19/20 23:14 Finasteride (Proscar) 5 mg DAILY ORAL 02/22/20 09:00 05/22/20 08:59 02/23/20 08:41 Gadobutrol (Gadavist) 7.5 mmol NOW PRN IV Radiology Procedure 02/20/20 10:45 02/24/20 10:33 Heparin Sodium (Porcine) (Heparin 5000 units/ml) 5,000 units EVERY 8 HOURS SUBQ 02/20/20 06:00 04/05/20 05:59 02/23/20 06:20 Insulin Aspart (NovoLOG) BEFORE MEALS AND HS SUBQ 02/20/20 06:30 05/20/20 06:29 02/23/20 06:20 Magnesium Hydroxide (Mom) 30 ml BIDPRN PRN ORAL Constipation 02/21/20 11:30 03/22/20 11:29 02/21/20 11:37 Piperacillin Sod/ Tazobactam Sod 3.375 gm/Sodium Chloride 110 ml @ 27.5 mls/hr Q8H IVPB 02/20/20 02:00 02/27/20 01:59 02/23/20 02:30 Vancomycin HCl (Vanco rx to dose) 1 ea DAILY PRN MISC Per rx protocol 02/19/20 23:15 03/20/20 23:14 Vancomycin HCl 1 gm/Dextrose 275 ml @ 183.708 mls/hr ONCE IVPB 02/23/20 09:00 02/23/20 11:00 5/16/20 08:41 Laboratory Tests 02/23/20 05:00: White Blood Count 15.7H, Red Blood Count 4.10L, Hemoglobin 11.8L, Hematocrit 34.8L, Mean Corpuscular Volume 85, Mean Corpuscular Hemoglobin 28.8, Mean Corpuscular Hemoglobin Concent 34.0, Red Cell Distribution Width 12.6, Platelet Count 395, Mean Platelet Volume 5.1L, Neutrophils (%) (Auto) 76.1H, Lymphocytes (%) (Auto) 13.5L, Monocytes (%) (Auto) 7.9, Eosinophils (%) (Auto) 2.2, Basophils (%) (Auto) 0.2, Sodium Level 136, Potassium Level 4.4, Chloride Level 102, Carbon Dioxide Level 26, Blood Urea Nitrogen 19H, Creatinine 1.3, Estimat Glomerular Filtration Rate 54.0, Glucose Level 193H, Calcium Level 8.7, Random Vancomycin Level 16.2 Height (Feet): 5 Height (Inches): 8.00 Weight (Pounds): 212 Objective exam stable SPT in place urine yellow/aris with debris Juan Pineda MD February 23, 2020 10:02
--- NOTE | 2020-02-23 11:24 | Infectious Diseases Prog Note ---
"Assessment/Plan Assessment/Plan antibiotics : vancomycin, zosyn A 1. MRSA | proteus foot ulcer infection, r/o osteomyelitis 2. pseudomonas UTI 3. diabetes mellitus 4. hypertension 5. leucocytosis 6. COVID 19 negative P 1. continue iv vancomycin, zosyn 2. will follow up cultures 3. MRI pending Subjective ROS Limited/Unobtainable: Yes Allergies: Coded Allergies: No Known Allergies (Unverified , 02/19/20) Objective Vital Signs Last 24 Hour Vital Signs Date Time Temp Pulse Resp B/P (MAP) Pulse Ox O2 Delivery O2 Flow Rate FiO2 02/23/20 08:00 97.2 69 20 113/75 (88) 95 02/23/20 04:00 98.0 71 20 136/61 (86) 97 02/23/20 00:00 98.4 90 19 148/95 (112) 94 02/22/20 21:00 Room Air 02/22/20 20:00 98.6 78 19 133/81 (98) 97 02/22/20 16:00 97.9 78 20 137/75 (95) 96 02/22/20 12:00 97.7 71 20 131/80 (97) 95 Height (Feet): 5 Height (Inches): 8.00 Weight (Pounds): 212 Respiratory/Chest: lungs clear Cardiovascular: normal rate, regular rhythm, no gallop/murmur Abdomen: soft, non tender Extremities: no edema, other - left heel necrotic ulcer Laboratory Tests Test 02/23/20 05:00 White Blood Count 15.7 K/UL (4.8-10.8) H Red Blood Count 4.10 M/UL (4.70-6.10) L Hemoglobin 11.8 G/DL (14.2-18.0) L Hematocrit 34.8 % (42.0-52.0) L Mean Corpuscular Volume 85 FL (80-99) Mean Corpuscular Hemoglobin 28.8 PG (27.0-31.0) Mean Corpuscular Hemoglobin Concent 34.0 G/DL (32.0-36.0) Red Cell Distribution Width 12.6 % (11.6-14.8) Platelet Count 395 K/UL (150-450) Mean Platelet Volume 5.1 FL (6.5-10.1) L Neutrophils (%) (Auto) 76.1 % (45.0-75.0) H Lymphocytes (%) (Auto) 13.5 % (20.0-45.0) L Monocytes (%) (Auto) 7.9 % (1.0-10.0) Eosinophils (%) (Auto) 2.2 % (0.0-3.0) Basophils (%) (Auto) 0.2 % (0.0-2.0) Sodium Level 136 MMOL/L (136-145) Potassium Level 4.4 MMOL/L (3.5-5.1) Chloride Level 102 MMOL/L (98-107) Carbon Dioxide Level 26 MMOL/L (21-32) Blood Urea Nitrogen 19 mg/dL (7-18) H Creatinine 1.3 MG/DL (0.55-1.30) Estimat Glomerular Filtration Rate 54.0 mL/min (>60) Glucose Level 193 MG/DL (74-106) H Calcium Level 8.7 MG/DL (8.5-10.1) Random Vancomycin Level 16.2 ug/mL Current Medications Medications (Trade) Dose Ordered Sig/Parish Route PRN Reason Start Time Stop Time Status Last Admin Dose Admin Acetaminophen (Tylenol) 650 mg Q4H PRN ORAL mild pain and fever 02/19/20 23:15 03/20/20 23:14 02/22/20 04:40 Acetaminophen/ Hydrocodone Bitart ([place] 5/325) 1 tab Q4H PRN ORAL Severe Pain (Pain Scale 7-10) 02/19/20 23:15 02/26/20 23:14 02/23/20 07:03 Bisacodyl (Dulcolax) 10 mg DAILYPRN PRN RECTAL Constipation 02/21/20 11:30 05/21/20 11:29 02/21/20 15:48 Dextrose (Dextrose 50%) 25 ml Q30M PRN IV Hypoglycemia 02/19/20 23:15 05/19/20 23:14 Dextrose (Dextrose 50%) 50 ml Q30M PRN IV Hypoglycemia 02/19/20 23:15 05/19/20 23:14 Finasteride (Proscar) 5 mg DAILY ORAL 02/22/20 09:00 05/22/20 08:59 02/23/20 08:41 Gadobutrol (Gadavist) 7.5 mmol NOW PRN IV Radiology Procedure 02/20/20 10:45 02/24/20 10:33 Heparin Sodium (Porcine) (Heparin 5000 units/ml) 5,000 units EVERY 8 HOURS SUBQ 02/20/20 06:00 04/05/20 05:59 02/23/20 06:20 Insulin Aspart (NovoLOG) BEFORE MEALS AND HS SUBQ 02/20/20 06:30 05/20/20 06:29 02/23/20 06:20 Magnesium Hydroxide (Mom) 30 ml BIDPRN PRN ORAL Constipation 02/21/20 11:30 03/22/20 11:29 02/21/20 11:37 Piperacillin Sod/ Tazobactam Sod 3.375 gm/Sodium Chloride 110 ml @ 27.5 mls/hr Q8H IVPB 02/20/20 02:00 02/27/20 01:59 02/23/20 11:00 Vancomycin HCl (Vanco rx to dose) 1 ea DAILY PRN MISC Per rx protocol 02/19/20 23:15 03/20/20 23:14 Aneudy Mclaughlin MD February 23, 2020 11:24"
--- NOTE | 2020-02-23 19:41 | NUR ---
HAND-OFF: Report given to MICHELL Giraldo. Rounds done.
--- NOTE | 2020-02-23 20:00 | NUR ---
NURSE NOTES: Patient received in bed, awake and alert, mostly [place] speaking, able to make simple needs known in [place]. SPC draining via gravity. IV is infiltrated, will re-insert new IV. Bilateral heels elevated and floating. Call light in reach. Will continue to monitor.
[2020-02-24] MEDS: HYDROcodone/Acetamin 5/325 tab ORAL PRN ×5 (01:44→22:48)
[2020-02-24] MEDS: Piperacillin/Tazobactam 3.375 GM in NS 110 ML IVPB SCH ×3 (02:13→17:31)
--- NOTE | 2020-02-24 02:29 | Progress Note ---
DATE: 02/23/2020 SUBJECTIVE: This is a 75-year-old male came with a nonhealing ulcer and draining and cellulitis. The patient was found to have possible osteomyelitis. Podiatry is on consult. The patient probably needs a surgery. He is currently on IV antibiotics. The patient is physically doing better. PHYSICAL EXAMINATION: VITAL SIGNS: Blood pressure is 130/70, pulse 74, respirations 18, and no fever. HEENT: NAD. CHEST: Bilaterally few crackles. CARDIOVASCULAR: Regular rhythm. No gallop. No murmur. ABDOMEN: Soft. EXTREMITIES: CCE. NEUROLOGICAL: The patient has generalized weakness. GENITOURINARY: Deferred. ASSESSMENT: 1. Nonhealing ulcer. 2. Osteomyelitis. 3. Depression. 4. Peripheral vascular disease. 5. Status post BKA. PLAN: 1. We will currently continue IV antibiotic. 2. Continue wound care. 3. ____ Podiatry is on consult. 4. Continue sliding scale and Accu-Chek. Arsen Lamas M.D. DR: CHARLIE JOB#: [id number] CC:
--- NOTE | 2020-02-24 02:30 | NUR ---
NURSE NOTES: Patient's IV came off while sleeping. New IV access inserted on left wrist again.
[2020-02-24 04:00] VITALS: BP 129/62
--- NOTE | 2020-02-24 05:14 | NUR ---
NURSE NOTES: Patient refused vanco random blood draw at this time, c/o being poked (from IV insertion) multiple times earlier. Explained to patient difference with IV and blood draw, patient still refused RN to draw.
[2020-02-24] MEDS: Heparin 5000 units/ml inj SUBQ SCH ×3 (06:00→22:47)
[2020-02-24] MEDS: NovoLOG Insulin Flexpen SUBQ SCH ×4 (06:30→21:19)
--- NOTE | 2020-02-24 06:39 | NUR ---
NURSE NOTES: Patient refused heparin and insulin at 0600, educated importance of medications, still refused and asked for norco instead.
--- NOTE | 2020-02-24 07:17 | NUR ---
HAND-OFF: Report given to Felicia GALARZA.
[2020-02-24 08:00] VITALS: BP 131/74
--- NOTE | 2020-02-24 09:51 | Urology Progress Note ---
Assessment/Plan Assessment/Plan: 1. Urinary retention history with chronic suprapubic tube. 2. BPH history. 3. Probable neurogenic bladder. 4. Hematuria. 5. Pyuria, rule out infection and colonization. 6. Proteinuria. 7. Renal insufficiency, possibly acute on chronic. monitor clinically maintain SPT, last exchanged 02/19 hand irrigated and do PRN monitor renal fxn abx as ordered f/u on blood cx cysto later consider renal imaging study proscar added Subjective Allergies: Coded Allergies: No Known Allergies (Unverified , 02/19/20) Subjective all noted, feels fair Objective Last 24 Hour Vital Signs Date Time Temp Pulse Resp B/P (MAP) Pulse Ox O2 Delivery O2 Flow Rate FiO2 02/24/20 08:00 99.0 65 17 131/74 (93) 96 02/24/20 04:00 98.5 72 18 129/62 (84) 96 02/23/20 23:33 98.8 69 18 134/81 (98) 96 02/23/20 21:00 Room Air 02/23/20 20:00 98.8 64 18 127/78 (94) 96 02/23/20 18:28 99.1 02/23/20 18:27 99.1 02/23/20 16:00 100.2 67 20 136/77 (96) 94 02/23/20 12:00 97.7 65 20 131/76 (94) 95 Intake and Output 02/23/20 02/24/20 19:00 07:00 Intake Total 625.0 ml 700.0 ml Output Total 900 ml 950 ml Balance -275.0 ml -250.0 ml Intake Oral 240 ml 480 ml IV Total 385.0 ml 220.0 ml Output Urine Total 900 ml 950 ml # Voids 1 Microbiology Date/Time Source Procedure Growth Status 02/19/20 19:00 Blood Blood Culture - Preliminary NO GROWTH AFTER 4 DAYS Resulted 02/19/20 19:00 Nasopharynx Coronavirus COVID-19 PCR (EVETTE) - Final Complete 02/19/20 20:08 Urine,Clean Catch Urine Culture - Final Pseudomonas Aeruginosa Complete 02/20/20 11:19 Foot Left Gram Stain - Final Complete 02/20/20 11:19 Wound Culture - Final Staphylococcus Aureus - Mrsa Proteus Mirabilis Enterococcus Faecalis Complete Current Medications Medications (Trade) Dose Ordered Sig/Parish Route PRN Reason Start Time Stop Time Status Last Admin Dose Admin Acetaminophen (Tylenol) 650 mg Q4H PRN ORAL mild pain and fever 02/19/20 23:15 03/20/20 23:14 02/23/20 16:33 Acetaminophen/ Hydrocodone Bitart ([place] 5/325) 1 tab Q4H PRN ORAL Severe Pain (Pain Scale 7-10) 02/19/20 23:15 02/26/20 23:14 02/24/20 06:33 Bisacodyl (Dulcolax) 10 mg DAILYPRN PRN RECTAL Constipation 02/21/20 11:30 05/21/20 11:29 02/21/20 15:48 Dextrose (Dextrose 50%) 25 ml Q30M PRN IV Hypoglycemia 02/19/20 23:15 05/19/20 23:14 Dextrose (Dextrose 50%) 50 ml Q30M PRN IV Hypoglycemia 02/19/20 23:15 05/19/20 23:14 Finasteride (Proscar) 5 mg DAILY ORAL 02/22/20 09:00 05/22/20 08:59 02/24/20 09:17 Gadobutrol (Gadavist) 7.5 mmol NOW PRN IV Radiology Procedure 02/20/20 10:45 02/24/20 10:33 Heparin Sodium (Porcine) (Heparin 5000 units/ml) 5,000 units EVERY 8 HOURS SUBQ 02/20/20 06:00 04/05/20 05:59 02/23/20 21:35 Insulin Aspart (NovoLOG) BEFORE MEALS AND HS SUBQ 02/20/20 06:30 05/20/20 06:29 02/23/20 20:19 Magnesium Hydroxide (Mom) 30 ml BIDPRN PRN ORAL Constipation 02/21/20 11:30 03/22/20 11:29 02/21/20 11:37 Piperacillin Sod/ Tazobactam Sod 3.375 gm/Sodium Chloride 110 ml @ 27.5 mls/hr Q8H IVPB 02/20/20 02:00 02/27/20 01:59 02/24/20 09:17 Vancomycin HCl (Vanco rx to dose) 1 ea DAILY PRN MISC Per rx protocol 02/19/20 23:15 03/20/20 23:14 Vancomycin HCl 750 mg/Sodium Chloride 275 ml @ 183.333 mls/hr Q24H IVPB 02/24/20 13:00 02/29/20 12:59 Laboratory Tests 02/24/20 06:10: Random Vancomycin Level 14.2 Height (Feet): 5 Height (Inches): 8.00 Weight (Pounds): 212 Objective exam stable SPT in place urine yellow/aris with debris Juan Pineda MD February 24, 2020 09:51
[2020-02-24 12:00] VITALS: BP 133/84
[2020-02-24] MEDS: Vancomycin 750 MG in NS 275 ML IVPB SCH ×2 (12:31→14:00)
--- NOTE | 2020-02-24 14:31 | Infectious Diseases Prog Note ---
Assessment/Plan Assessment/Plan A; 1. Left foot ulcer infection would be concerned regarding underlying osteomyelitis. 2. Pneumonia COVID-19 X 1: negative 3. Diabetes. 4. Hypertension. 5. Sepsis 6. UTI PLAN: 1. Continue IV vancomycin and Zosyn. 2. We will f/u MRI of the left foot to rule out osteomyelitis. 3. We will follow up repeated COVID19 test Subjective ROS Limited/Unobtainable: Yes Constitutional: Denies: fever Respiratory: Reports: dry cough Allergies: Coded Allergies: No Known Allergies (Unverified , 02/19/20) Objective Vital Signs Last 24 Hour Vital Signs Date Time Temp Pulse Resp B/P (MAP) Pulse Ox O2 Delivery O2 Flow Rate FiO2 02/24/20 09:00 Room Air 02/24/20 08:00 99.0 65 17 131/74 (93) 96 02/24/20 04:00 98.5 72 18 129/62 (84) 96 02/23/20 23:33 98.8 69 18 134/81 (98) 96 02/23/20 21:00 Room Air 02/23/20 20:00 98.8 64 18 127/78 (94) 96 02/23/20 18:28 99.1 02/23/20 18:27 99.1 02/23/20 16:00 100.2 67 20 136/77 (96) 94 Height (Feet): 5 Height (Inches): 8.00 Weight (Pounds): 212 General Appearance: no acute distress HEENT: mucous membranes moist Respiratory/Chest: no respiratory distress Cardiovascular: normal rate Abdomen: soft, non tender Extremities: no edema, other - R foot amputation Skin: ulcers, other - left heel Laboratory Tests Test 02/24/20 06:10 Random Vancomycin Level 14.2 ug/mL Current Medications Medications (Trade) Dose Ordered Sig/Parish Route PRN Reason Start Time Stop Time Status Last Admin Dose Admin Acetaminophen (Tylenol) 650 mg Q4H PRN ORAL mild pain and fever 02/19/20 23:15 03/20/20 23:14 02/23/20 16:33 Acetaminophen/ Hydrocodone Bitart ([place] 5/325) 1 tab Q4H PRN ORAL Severe Pain (Pain Scale 7-10) 02/19/20 23:15 02/26/20 23:14 02/24/20 12:21 Bisacodyl (Dulcolax) 10 mg DAILYPRN PRN RECTAL Constipation 02/21/20 11:30 05/21/20 11:29 02/21/20 15:48 Dextrose (Dextrose 50%) 25 ml Q30M PRN IV Hypoglycemia 02/19/20 23:15 05/19/20 23:14 Dextrose (Dextrose 50%) 50 ml Q30M PRN IV Hypoglycemia 02/19/20 23:15 05/19/20 23:14 Finasteride (Proscar) 5 mg DAILY ORAL 02/22/20 09:00 05/22/20 08:59 02/24/20 09:17 Heparin Sodium (Porcine) (Heparin 5000 units/ml) 5,000 units EVERY 8 HOURS SUBQ 02/20/20 06:00 04/05/20 05:59 02/24/20 14:01 Insulin Aspart (NovoLOG) BEFORE MEALS AND HS SUBQ 02/20/20 06:30 05/20/20 06:29 02/24/20 12:22 Magnesium Hydroxide (Mom) 30 ml BIDPRN PRN ORAL Constipation 02/21/20 11:30 03/22/20 11:29 02/21/20 11:37 Piperacillin Sod/ Tazobactam Sod 3.375 gm/Sodium Chloride 110 ml @ 27.5 mls/hr Q8H IVPB 02/20/20 02:00 02/27/20 01:59 02/24/20 09:17 Vancomycin HCl (Vanco rx to dose) 1 ea DAILY PRN MISC Per rx protocol 02/19/20 23:15 03/20/20 23:14 Vancomycin HCl 750 mg/Sodium Chloride 275 ml @ 183.333 mls/hr Q24H IVPB 02/24/20 13:00 02/29/20 12:59 02/24/20 14:00 Hill Rodriguez MD February 24, 2020 14:31
[2020-02-24 16:00] VITALS: BP 129/82
--- NOTE | 2020-02-24 19:24 | NUR ---
HAND-OFF: Report given to MICHELL Giraldo.
[2020-02-24 19:50] VITALS: BP 134/76
--- NOTE | 2020-02-24 19:59 | Progress Note ---
DATE: 02/24/2020 SUBJECTIVE: This is elderly male came with COVID, appearing with foot ulcer and nonhealing ulcer. Patient is waiting for MRI and further surgery. He is also complaining some anxiety. We will add Ativan. PHYSICAL EXAMINATION: VITAL SIGNS: Blood pressure is 131/74, pulse 65, respirations 17, temperature 99. HEENT: NAD. CHEST: Bilaterally clear. CARDIOVASCULAR: Regular rhythm. ABDOMEN: Soft. EXTREMITIES: Foot ulcer. GENITOURINARY: Deferred. LABORATORY DATA: White counts are 15,000, hemoglobin 12, hematocrit 34, platelets are 395. Chemistry panel, BUN 19, creatinine 1.3, glucose 196. ASSESSMENT: 1. Nonhealing foot ulcer, possible osteomyelitis. 2. Hypertension. 3. Diabetes. 4. Possible COVID. 5. Peripheral vascular disease. 6. Anxiety. PLAN: Continue antibiotics. Waiting for MRI. Podiatry on consult. Continue supportive treatment. We will put Ativan. Arsen Lmaas M.D. DR: FIORELLA JOB#: [id number] CC:
--- NOTE | 2020-02-24 20:00 | NUR ---
NURSE NOTES: Patient received in bed, asleep, easily arousable. No acute distress. Iv is intact and patent, zosyn infusing. SPC draining via gravity, secured to thigh. No BM for 3 days, patient offered laxatives, but patient denies feeling constipated, no abdominal pain or distention noted. Wounds on BLE swabbed with betadine as ordered and floated with pillows. Will continue to monitor. Addendum: 02/25/20 at 0645 by RANDA SHAH RN RN Patient still no BM. Patient continues to deny any symptoms of constipation, abdominal pain. No distention noted. Will endorse.
[2020-02-25] MEDS: Piperacillin/Tazobactam 3.375 GM in NS 110 ML IVPB SCH ×3 (02:43→16:52)
[2020-02-25] MEDS: HYDROcodone/Acetamin 5/325 tab ORAL PRN ×4 (02:45→19:47)
[2020-02-25 04:00] VITALS: BP 126/73
[2020-02-25] MEDS: Heparin 5000 units/ml inj SUBQ SCH ×3 (06:17→21:04)
[2020-02-25] MEDS: NovoLOG Insulin Flexpen SUBQ SCH ×4 (06:17→21:04)
--- NOTE | 2020-02-25 07:57 | NUR ---
NURSE NOTES: Patient awake, alert x4; on room air, no sing of distress and shortness of breath; no sing of chest pain; IV Left-Wrist, flushes well; Supra-Pubic catheter in place, collects urine; Right Foot Amputation; patient on isolation for PUI COVID-19; side rails up x2, breaks engaged, bed at lowest position, bed alarm on; call light within reach; will keep monitoring.
[2020-02-25 08:00] VITALS: BP 130/77
--- NOTE | 2020-02-25 09:04 | Urology Progress Note ---
Assessment/Plan Assessment/Plan: 1. Urinary retention history with chronic suprapubic tube. 2. BPH history. 3. Probable neurogenic bladder. 4. Hematuria. 5. Pyuria, rule out infection and colonization. 6. Proteinuria. 7. Renal insufficiency, possibly acute on chronic. monitor clinically maintain SPT, last exchanged 02/19 hand irrigated and do PRN monitor renal fxn abx as ordered cysto later consider renal imaging study proscar added Subjective Allergies: Coded Allergies: No Known Allergies (Unverified , 02/19/20) Subjective all noted, feels fair Objective Last 24 Hour Vital Signs Date Time Temp Pulse Resp B/P (MAP) Pulse Ox O2 Delivery O2 Flow Rate FiO2 02/25/20 08:00 97.7 74 18 130/77 (94) 95 02/25/20 04:00 97.5 71 18 126/73 (90) 93 02/24/20 21:00 Room Air 02/24/20 19:50 99.0 68 21 134/76 (95) 100 02/24/20 16:00 98.9 69 18 129/82 (98) 96 02/24/20 12:00 99.0 77 17 133/84 (100) 96 Intake and Output 02/24/20 02/25/20 19:00 07:00 Intake Total 495.0 ml 1010.0 ml Output Total 1000 ml Balance 495.0 ml 10.0 ml Intake Oral 400 ml IV Total 495.0 ml 110.0 ml Other 500 ml Output Urine Total 1000 ml Microbiology Date/Time Source Procedure Growth Status 02/19/20 19:00 Blood Blood Culture - Final NO GROWTH AFTER 5 DAYS Complete 02/22/20 11:20 Nasopharynx Coronavirus COVID-19 PCR (EVETTE) - Final Complete 02/19/20 20:08 Urine,Clean Catch Urine Culture - Final Pseudomonas Aeruginosa Complete 02/20/20 11:19 Foot Left Gram Stain - Final Complete 02/20/20 11:19 Wound Culture - Final Staphylococcus Aureus - Mrsa Proteus Mirabilis Enterococcus Faecalis Complete Current Medications Medications (Trade) Dose Ordered Sig/Parish Route PRN Reason Start Time Stop Time Status Last Admin Dose Admin Acetaminophen (Tylenol) 650 mg Q4H PRN ORAL mild pain and fever 02/19/20 23:15 03/20/20 23:14 02/23/20 16:33 Acetaminophen/ Hydrocodone Bitart ([place] 5/325) 1 tab Q4H PRN ORAL Severe Pain (Pain Scale 7-10) 02/19/20 23:15 02/26/20 23:14 02/25/20 04:03 Bisacodyl (Dulcolax) 10 mg DAILYPRN PRN RECTAL Constipation 02/21/20 11:30 05/21/20 11:29 02/21/20 15:48 Dextrose (Dextrose 50%) 25 ml Q30M PRN IV Hypoglycemia 02/19/20 23:15 05/19/20 23:14 Dextrose (Dextrose 50%) 50 ml Q30M PRN IV Hypoglycemia 02/19/20 23:15 05/19/20 23:14 Finasteride (Proscar) 5 mg DAILY ORAL 02/22/20 09:00 05/22/20 08:59 02/24/20 09:17 Heparin Sodium (Porcine) (Heparin 5000 units/ml) 5,000 units EVERY 8 HOURS SUBQ 02/20/20 06:00 04/05/20 05:59 02/25/20 06:17 Insulin Aspart (NovoLOG) BEFORE MEALS AND HS SUBQ 02/20/20 06:30 05/20/20 06:29 02/25/20 06:17 Lorazepam (Ativan) 1 mg Q8H PRN ORAL For Anxiety 02/24/20 19:30 03/02/20 19:29 Magnesium Hydroxide (Mom) 30 ml BIDPRN PRN ORAL Constipation 02/21/20 11:30 03/22/20 11:29 02/21/20 11:37 Piperacillin Sod/ Tazobactam Sod 3.375 gm/Sodium Chloride 110 ml @ 27.5 mls/hr Q8H IVPB 02/20/20 02:00 02/27/20 01:59 02/25/20 02:43 Vancomycin HCl (Vanco rx to dose) 1 ea DAILY PRN MISC Per rx protocol 02/19/20 23:15 03/20/20 23:14 Vancomycin HCl 750 mg/Sodium Chloride 275 ml @ 183.333 mls/hr Q24H IVPB 02/24/20 13:00 02/29/20 12:59 02/24/20 14:00 Height (Feet): 5 Height (Inches): 8.00 Weight (Pounds): 212 Objective exam stable SPT in place urine yellow/aris with debris Juan Pineda MD February 25, 2020 09:04
--- NOTE | 2020-02-25 10:12 | NUR ---
NURSE NOTES: I received an order to DC isolation for COVID-19; order carried out as order given; Charge nurse, Cornel is aware;
--- NOTE | 2020-02-25 11:27 | Infectious Diseases Prog Note ---
"Assessment/Plan Assessment/Plan antibiotics : vancomycin, zosyn A 1. MRSA | proteus foot ulcer infection, r/o osteomyelitis 2. pseudomonas UTI 3. diabetes mellitus 4. hypertension 5. leucocytosis 6. COVID 19 negative x 2 P 1. continue iv vancomycin, zosyn 2. will follow up cultures 3. MRI pending Subjective Constitutional: Denies: fever, chills Respiratory: Denies: shortness of breath, dry cough Gastrointestinal/Abdominal: Denies: nausea, vomiting, diarrhea Musculoskeletal: Reports: pain - in left foot Allergies: Coded Allergies: No Known Allergies (Unverified , 02/19/20) Objective Vital Signs Last 24 Hour Vital Signs Date Time Temp Pulse Resp B/P (MAP) Pulse Ox O2 Delivery O2 Flow Rate FiO2 02/25/20 09:00 Room Air 02/25/20 08:00 97.7 74 18 130/77 (94) 95 02/25/20 04:00 97.5 71 18 126/73 (90) 93 02/24/20 21:00 Room Air 02/24/20 19:50 99.0 68 21 134/76 (95) 100 02/24/20 16:00 98.9 69 18 129/82 (98) 96 02/24/20 12:00 99.0 77 17 133/84 (100) 96 Height (Feet): 5 Height (Inches): 8.00 Weight (Pounds): 212 Current Medications Medications (Trade) Dose Ordered Sig/Parish Route PRN Reason Start Time Stop Time Status Last Admin Dose Admin Acetaminophen (Tylenol) 650 mg Q4H PRN ORAL mild pain and fever 02/19/20 23:15 03/20/20 23:14 02/23/20 16:33 Acetaminophen/ Hydrocodone Bitart ([place] 5/325) 1 tab Q4H PRN ORAL Severe Pain (Pain Scale 7-10) 02/19/20 23:15 02/26/20 23:14 02/25/20 11:13 Bisacodyl (Dulcolax) 10 mg DAILYPRN PRN RECTAL Constipation 02/21/20 11:30 05/21/20 11:29 02/21/20 15:48 Dextrose (Dextrose 50%) 25 ml Q30M PRN IV Hypoglycemia 02/19/20 23:15 05/19/20 23:14 Dextrose (Dextrose 50%) 50 ml Q30M PRN IV Hypoglycemia 02/19/20 23:15 05/19/20 23:14 Finasteride (Proscar) 5 mg DAILY ORAL 02/22/20 09:00 05/22/20 08:59 02/25/20 09:11 Heparin Sodium (Porcine) (Heparin 5000 units/ml) 5,000 units EVERY 8 HOURS SUBQ 02/20/20 06:00 04/05/20 05:59 02/25/20 06:17 Insulin Aspart (NovoLOG) BEFORE MEALS AND HS SUBQ 02/20/20 06:30 05/20/20 06:29 02/25/20 06:17 Lorazepam (Ativan) 1 mg Q8H PRN ORAL For Anxiety 02/24/20 19:30 03/02/20 19:29 Magnesium Hydroxide (Mom) 30 ml BIDPRN PRN ORAL Constipation 02/21/20 11:30 03/22/20 11:29 02/21/20 11:37 Piperacillin Sod/ Tazobactam Sod 3.375 gm/Sodium Chloride 110 ml @ 27.5 mls/hr Q8H IVPB 02/20/20 02:00 02/27/20 01:59 02/25/20 09:12 Vancomycin HCl (Vanco rx to dose) 1 ea DAILY PRN MISC Per rx protocol 02/19/20 23:15 03/20/20 23:14 Vancomycin HCl 750 mg/Sodium Chloride 275 ml @ 183.333 mls/hr Q24H IVPB 02/24/20 13:00 02/29/20 12:59 02/24/20 14:00 Aneudy Mclaughlin MD February 25, 2020 11:27"
[2020-02-25 12:00] VITALS: BP 142/75
[2020-02-25] MEDS: Vancomycin 750 MG in NS 275 ML IVPB SCH (12:07)
[2020-02-25 16:00] VITALS: BP 139/71
--- NOTE | 2020-02-25 17:08 | NUR ---
CASE MANAGEMENT:REVIEW SI;FOOT ULCER (PROTEUS INFECTION) OSTEO RULE OUT. PSEUDOMONAS UTI. 99.0 74 20 142/75 93% ON RA LABS ON 02/23/20 ~ WBC 15.7 BUN N19 BG 193 IS;VANCOMYCIN IV Q24 HRS ZOSYN IV Q8 HRS HEPARIN SUBQ Q8 HRS MED SURG STATUS DCP;FROM [facility]
--- NOTE | 2020-02-25 18:50 | NUR ---
NURSE NOTES: Wound care provided; patient tolerated well;
--- NOTE | 2020-02-25 19:23 | NUR ---
NURSE NOTES: Received report from MICHELL Garcia. AAO x 4, on room air. [place] speaking. IV site intact and patent. Supra-Pubic catheter in place. Right Foot Amputation. Foot MRI needs to take. Off on isolation for PUI COVID-19. Bed locked, alarm on, lowest position, side rails up, call light within reach. Will continue to monitor.
--- NOTE | 2020-02-25 19:24 | NUR ---
HAND-OFF: Report given to MICHELL Perdue.
[2020-02-25 20:00] VITALS: BP 131/73
--- NOTE | 2020-02-25 21:15 | Progress Note ---
DATE: 02/25/2020 SUBJECTIVE: A 75-year-old male came with a nonhealing ulcer and draining. The patient is waiting for MRI. His COVID is negative. PHYSICAL EXAMINATION: VITAL SIGNS: Blood pressure 139/71, pulse 66, and temperature 97.2. HEENT: NAD. CHEST: Bilaterally clear. CARDIOVASCULAR: Regular rhythm. ABDOMEN: Soft. EXTREMITIES: CCE. NEUROLOGICAL: The patient has no focal deficit. LABORATORY DATA: His COVID is negative. His wound cultures are growing MRSA. ASSESSMENT: 1. Nonhealing ulcer, rule out osteomyelitis. 2. Hypertension. 3. Diabetes. PLAN: Continue current antibiotics. We will discuss with Podiatry. Arsen Lamas M.D. DR: Janet JOB#: [id number] CC:
[2020-02-26] VITALS: BP 146/79
[2020-02-26] MEDS: Piperacillin/Tazobactam 3.375 GM in NS 110 ML IVPB SCH ×3 (02:52→18:39)
[2020-02-26] MEDS: HYDROcodone/Acetamin 5/325 tab ORAL PRN ×3 (03:40→17:20)
[2020-02-26 04:00] VITALS: BP 144/80
[2020-02-26] MEDS: Heparin 5000 units/ml inj SUBQ SCH ×3 (05:28→21:09)
[2020-02-26] MEDS: NovoLOG Insulin Flexpen SUBQ SCH ×4 (05:29→21:08)
--- NOTE | 2020-02-26 07:10 | NUR ---
HAND-OFF: Report given to MICHELL Brooks.
--- NOTE | 2020-02-26 07:16 | NUR ---
NURSE NOTES: Patient alert x4, Thai speaking; on room air, no sing of distress and shortness of breath; on sign of chest pain; IV Left-Wrist TKO; Supra-Pubic catheter in place, collects yellow urine; side rails up x2, breaks engaged, bed at lowest level, bed alarm on; call light within reach;
[2020-02-26 08:00] VITALS: BP 138/77
[2020-02-26] MEDS: LORazepam 1mg tab ORAL PRN (08:34)
--- NOTE | 2020-02-26 09:04 | Urology Progress Note ---
Assessment/Plan Assessment/Plan: 1. Urinary retention history with chronic suprapubic tube. 2. BPH history. 3. Probable neurogenic bladder. 4. Hematuria. 5. Pyuria, rule out infection and colonization. 6. Proteinuria. 7. Renal insufficiency, possibly acute on chronic. monitor clinically maintain SPT, last exchanged 02/19 hand irrigated and do PRN monitor renal fxn abx as ordered cysto later consider renal imaging study proscar added Subjective Allergies: Coded Allergies: No Known Allergies (Unverified , 02/19/20) Subjective all noted, feels fair Objective Last 24 Hour Vital Signs Date Time Temp Pulse Resp B/P (MAP) Pulse Ox O2 Delivery O2 Flow Rate FiO2 02/26/20 08:00 96.6 78 21 138/77 (97) 100 02/26/20 04:00 96.8 73 24 144/80 (101) 99 02/26/20 00:00 97.7 67 24 146/79 (101) 97 02/25/20 20:26 Room Air 02/25/20 20:00 98.2 69 19 131/73 (92) 98 02/25/20 16:00 97.2 66 20 139/71 (93) 98 02/25/20 12:00 97.3 68 19 142/75 (97) 98 02/25/20 11:43 97.7 Intake and Output 02/25/20 02/26/20 19:00 07:00 Intake Total 1331.666 ml 360 ml Output Total 1400 ml 800 ml Balance -68.334 ml -440 ml Intake Oral 800 ml IV Total 531.666 ml Other 360 ml Output Urine Total 1400 ml 800 ml Microbiology Date/Time Source Procedure Growth Status 02/19/20 19:00 Blood Blood Culture - Final NO GROWTH AFTER 5 DAYS Complete 02/22/20 11:20 Nasopharynx Coronavirus COVID-19 PCR (EVETTE) - Final Complete 02/19/20 20:08 Urine,Clean Catch Urine Culture - Final Pseudomonas Aeruginosa Complete 02/20/20 11:19 Foot Left Gram Stain - Final Complete 02/20/20 11:19 Wound Culture - Final Staphylococcus Aureus - Mrsa Proteus Mirabilis Enterococcus Faecalis Complete Current Medications Medications (Trade) Dose Ordered Sig/Parish Route PRN Reason Start Time Stop Time Status Last Admin Dose Admin Acetaminophen (Tylenol) 650 mg Q4H PRN ORAL mild pain and fever 02/19/20 23:15 03/20/20 23:14 02/23/20 16:33 Acetaminophen/ Hydrocodone Bitart ([place] 5/325) 1 tab Q4H PRN ORAL Severe Pain (Pain Scale 7-10) 02/19/20 23:15 02/26/20 23:14 02/26/20 03:40 Bisacodyl (Dulcolax) 10 mg DAILYPRN PRN RECTAL Constipation 02/21/20 11:30 05/21/20 11:29 02/21/20 15:48 Dextrose (Dextrose 50%) 25 ml Q30M PRN IV Hypoglycemia 02/19/20 23:15 05/19/20 23:14 Dextrose (Dextrose 50%) 50 ml Q30M PRN IV Hypoglycemia 02/19/20 23:15 05/19/20 23:14 Finasteride (Proscar) 5 mg DAILY ORAL 02/22/20 09:00 05/22/20 08:59 02/26/20 08:34 Heparin Sodium (Porcine) (Heparin 5000 units/ml) 5,000 units EVERY 8 HOURS SUBQ 02/20/20 06:00 04/05/20 05:59 02/26/20 05:28 Insulin Aspart (NovoLOG) BEFORE MEALS AND HS SUBQ 02/20/20 06:30 05/20/20 06:29 02/26/20 05:29 Lorazepam (Ativan) 1 mg Q8H PRN ORAL For Anxiety 02/24/20 19:30 03/02/20 19:29 02/26/20 08:34 Magnesium Hydroxide (Mom) 30 ml BIDPRN PRN ORAL Constipation 02/21/20 11:30 03/22/20 11:29 02/21/20 11:37 Piperacillin Sod/ Tazobactam Sod 3.375 gm/Sodium Chloride 110 ml @ 27.5 mls/hr Q8H IVPB 02/20/20 02:00 02/27/20 01:59 02/26/20 09:01 Vancomycin HCl (Vanco rx to dose) 1 ea DAILY PRN MISC Per rx protocol 02/19/20 23:15 03/20/20 23:14 Vancomycin HCl 750 mg/Sodium Chloride 275 ml @ 183.333 mls/hr Q24H IVPB 02/24/20 13:00 02/29/20 12:59 02/25/20 12:07 Height (Feet): 5 Height (Inches): 8.00 Weight (Pounds): 212 Objective exam stable SPT in place urine yellow/aris with debris Juan Pineda MD February 26, 2020 09:04
--- NOTE | 2020-02-26 09:41 | NUR ---
NURSE NOTES: Patient left the floor for MRI;
[2020-02-26 11:00] LABS: BASOPHILS % (AUTO) 0.5 % (0.0-2.0); EOSINOPHILS % (AUTO) 3.6 % (0.0-3.0); HEMATOCRIT 37.3 % (42.0-52.0); HEMOGLOBIN 12.4 G/DL (14.2-18.0); LYMPHOCYTES % (AUTO) 12.6 % (20.0-45.0); MEAN CORPUSCULAR VOLUME 84 FL (80-99); NEUTROPHILS % (AUTO) 77.3 % (45.0-75.0); PLATELET COUNT 598 K/UL (150-450); RED BLOOD COUNT 4.44 M/UL (4.70-6.10); RED CELL DISTRIBUTION WIDTH 12.8 % (11.6-14.8); WHITE BLOOD COUNT 14.5 K/UL (4.8-10.8)
[2020-02-26 11:14] LABS: ANION GAP 8 mmol/L (5-15); BLOOD UREA NITROGEN 18 mg/dL (7-18); CALCIUM 8.9 MG/DL (8.5-10.1); CARBON DIOXIDE 26 MMOL/L (21-32); CHLORIDE 100 MMOL/L (98-107); CREATININE 1.3 MG/DL (0.55-1.30); POTASSIUM 4.3 MMOL/L (3.5-5.1); SODIUM 133 MMOL/L (136-145)
--- NOTE | 2020-02-26 11:45 | Infectious Diseases Prog Note ---
"Assessment/Plan Assessment/Plan antibiotics : vancomycin, zosyn A 1. 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 pseudomonas UTI 3. diabetes mellitus 4. hypertension 5. leucocytosis improving 6. COVID 19 negative x 2 P 1. continue iv vancomycin, zosyn 2. will follow up cultures 3. MRI pending 4. suggest podiatry evaluation Subjective Constitutional: Denies: fever, chills Respiratory: Denies: shortness of breath, dry cough Gastrointestinal/Abdominal: Denies: nausea, vomiting, diarrhea Musculoskeletal: Reports: pain Allergies: Coded Allergies: No Known Allergies (Unverified , 02/19/20) Objective Vital Signs Last 24 Hour Vital Signs Date Time Temp Pulse Resp B/P (MAP) Pulse Ox O2 Delivery O2 Flow Rate FiO2 02/26/20 11:13 96.6 02/26/20 09:00 Room Air 02/26/20 08:00 96.6 78 21 138/77 (97) 100 02/26/20 04:00 96.8 73 24 144/80 (101) 99 02/26/20 00:00 97.7 67 24 146/79 (101) 97 02/25/20 20:26 Room Air 02/25/20 20:00 98.2 69 19 131/73 (92) 98 02/25/20 16:00 97.2 66 20 139/71 (93) 98 02/25/20 12:00 97.3 68 19 142/75 (97) 98 Height (Feet): 5 Height (Inches): 8.00 Weight (Pounds): 212 Respiratory/Chest: lungs clear Cardiovascular: normal rate, regular rhythm, no gallop/murmur Abdomen: soft, non tender Extremities: no edema, other - left heel necrotic ulcer Laboratory Tests Test 02/26/20 10:30 White Blood Count 14.5 K/UL (4.8-10.8) H Red Blood Count 4.44 M/UL (4.70-6.10) L Hemoglobin 12.4 G/DL (14.2-18.0) L Hematocrit 37.3 % (42.0-52.0) L Mean Corpuscular Volume 84 FL (80-99) Mean Corpuscular Hemoglobin 27.9 PG (27.0-31.0) Mean Corpuscular Hemoglobin Concent 33.3 G/DL (32.0-36.0) Red Cell Distribution Width 12.8 % (11.6-14.8) Platelet Count 598 K/UL (150-450) H Mean Platelet Volume 4.9 FL (6.5-10.1) L Neutrophils (%) (Auto) 77.3 % (45.0-75.0) H Lymphocytes (%) (Auto) 12.6 % (20.0-45.0) L Monocytes (%) (Auto) 6.0 % (1.0-10.0) Eosinophils (%) (Auto) 3.6 % (0.0-3.0) H Basophils (%) (Auto) 0.5 % (0.0-2.0) Sodium Level 133 MMOL/L (136-145) L Potassium Level 4.3 MMOL/L (3.5-5.1) Chloride Level 100 MMOL/L (98-107) Carbon Dioxide Level 26 MMOL/L (21-32) Anion Gap 8 mmol/L (5-15) Blood Urea Nitrogen 18 mg/dL (7-18) Creatinine 1.3 MG/DL (0.55-1.30) Estimat Glomerular Filtration Rate 54.0 mL/min (>60) Glucose Level 291 MG/DL (74-106) H Calcium Level 8.9 MG/DL (8.5-10.1) Current Medications Medications (Trade) Dose Ordered Sig/Parish Route PRN Reason Start Time Stop Time Status Last Admin Dose Admin Acetaminophen (Tylenol) 650 mg Q4H PRN ORAL mild pain and fever 02/19/20 23:15 03/20/20 23:14 02/23/20 16:33 Acetaminophen/ Hydrocodone Bitart ([place] 5/325) 1 tab Q4H PRN ORAL Severe Pain (Pain Scale 7-10) 02/19/20 23:15 02/26/20 23:14 02/26/20 10:43 Bisacodyl (Dulcolax) 10 mg DAILYPRN PRN RECTAL Constipation 02/21/20 11:30 05/21/20 11:29 02/21/20 15:48 Dextrose (Dextrose 50%) 25 ml Q30M PRN IV Hypoglycemia 02/19/20 23:15 05/19/20 23:14 Dextrose (Dextrose 50%) 50 ml Q30M PRN IV Hypoglycemia 02/19/20 23:15 05/19/20 23:14 Finasteride (Proscar) 5 mg DAILY ORAL 02/22/20 09:00 05/22/20 08:59 02/26/20 08:34 Heparin Sodium (Porcine) (Heparin 5000 units/ml) 5,000 units EVERY 8 HOURS SUBQ 02/20/20 06:00 04/05/20 05:59 02/26/20 05:28 Insulin Aspart (NovoLOG) BEFORE MEALS AND HS SUBQ 02/20/20 06:30 05/20/20 06:29 02/26/20 05:29 Lorazepam (Ativan) 1 mg Q8H PRN ORAL For Anxiety 02/24/20 19:30 03/02/20 19:29 02/26/20 08:34 Magnesium Hydroxide (Mom) 30 ml BIDPRN PRN ORAL Constipation 02/21/20 11:30 03/22/20 11:29 02/21/20 11:37 Piperacillin Sod/ Tazobactam Sod 3.375 gm/Sodium Chloride 110 ml @ 27.5 mls/hr Q8H IVPB 02/20/20 02:00 02/27/20 01:59 02/26/20 09:01 Vancomycin HCl (Vanco rx to dose) 1 ea DAILY PRN MISC Per rx protocol 02/19/20 23:15 03/20/20 23:14 Vancomycin HCl 750 mg/Sodium Chloride 275 ml @ 183.333 mls/hr Q24H IVPB 02/24/20 13:00 02/29/20 12:59 02/25/20 12:07 Aneudy Mclaughlin MD February 26, 2020 11:45"
--- NOTE | 2020-02-26 12:19 | NUR ---
NURSE NOTES: Patient left the floor for the 2nd time for MRI, [place] given;
--- NOTE | 2020-02-26 13:47 | NUR ---
Despite pt still moving foot during scan, even with pain meds, pt did completed an MRI left ankle w/o contrast. tjb/cs 13:50
--- NOTE | 2020-02-26 14:19 | Diagnostic Imaging Report ---
EXAM: MRI MRI Left Ankle WO Contrast HISTORY: Large wound on bottom of heel. Evaluate for osteomyelitis. COMPARISON: No prior studies available for comparison. TECHNIQUE: MR scanning of the hindfoot/ankle including sagittal, coronal and axial T1, T2, proton density and STIR sequences. FINDINGS: Studies extremely limited due to severe motion artifacts despite repeated attempts. Patient unable to hold still for exam despite pain meds. There is a soft tissue wound and ulceration noted at the posterior inferior heel pad. Focal soft tissue edema noted along with subcutaneous low intensity foci likely subcutaneous air. There is generalized soft tissue edema but no discrete organized fluid collection or abscess. There is mild signal brightening along the subcortical region of the posterior calcaneal tubercle. This is best seen on the axial FLAIR sequence. Sagittal T1 signal change is demonstrated. Findings suggest early osteomyelitis. The rest of the bony structures are grossly unremarkable to the extent visualized. Ankle mortise and subtalar joints are anatomic. No significant arthropathy or joint effusion noted. Ligamentous and tendinous structures are only marginally visualized but no gross acute abnormality seen. IMPRESSION: SOFT TISSUE WOUND AND ULCERATION AT THE POSTERIOR INFERIOR HEEL PAD WITH SOFT TISSUE EDEMA AND PROBABLE SOFT TISSUE AIR LOW INTENSITY FOCI. NO ORGANIZED SOFT TISSUE FLUID COLLECTION OR ABSCESS SEEN. ADJACENT POSTERIOR TUBERCLE OF THE CALCANEUS SHOWS MILD INCREASED SIGNAL IN THE SUBCORTICAL BONE ALONG THE POSTERIOR MARGIN LIKELY REPRESENTING EARLY OSTEOMYELITIS.
[2020-02-26] MEDS: Vancomycin 1 GM in NS 275 ML IVPB SCH (14:55)
[2020-02-26 16:00] VITALS: BP 112/59
--- NOTE | 2020-02-26 18:28 | NUR ---
NURSE NOTES: Pharmacy didn't make available the Zosyn antibiotics; Pharmacist and Pharmacy techs are aware; waiting for Zosyn antibiotics;
--- NOTE | 2020-02-26 19:13 | NUR ---
HAND-OFF: Report given to MICHELL Esqueda.
--- NOTE | 2020-02-26 19:44 | NUR ---
NURSE NOTES: Received patient comfortably sleeping, no SOB noted.
[2020-02-26 20:00] VITALS: BP 132/72
[2020-02-26 23:37] VITALS: BP 114/73
--- NOTE | 2020-02-27 | Progress Note ---
DATE: 02/26/2020 SUBJECTIVE: This is an elderly male who came to the hospital for osteomyelitis on the foot. The patient has been taking antibiotics, and he is physically doing better. His COVID is negative. PHYSICAL EXAMINATION: VITAL SIGNS: His vital signs are stable. CHEST: Bilateral few crackles. CARDIOVASCULAR: Regular rhythm. No gallop. No murmur. ABDOMEN: Soft. EXTREMITIES: No edema. GENITOURINARY: Deferred. LABS: The patient has no labs. Had an MRI done this morning for the foot, results are not felt. ASSESSMENT: 1. Nonhealing ulcer. 2. Cellulitis. 3. Hypertension. 4. Diabetes. 5. Overweight. PLAN: The patient is in bed. Waiting for MRI report. Discussed with the Podiatry. Continue antibiotics. Arsen Lamas M.D. DR: CARLOS ENRIQUE JOB#: [id number] CC:
[2020-02-27] MEDS: LORazepam 1mg tab ORAL PRN ×2 (01:48→12:15)
[2020-02-27 04:12] VITALS: BP 124/76
[2020-02-27] MEDS: Heparin 5000 units/ml inj SUBQ SCH ×3 (05:40→22:26)
[2020-02-27] MEDS: NovoLOG Insulin Flexpen SUBQ SCH ×4 (05:41→21:35)
--- NOTE | 2020-02-27 07:12 | NUR ---
HAND-OFF: Report given to Madeleine Fowler RN.
[2020-02-27 08:00] VITALS: BP 117/67
--- NOTE | 2020-02-27 08:01 | NUR ---
NURSE NOTES: Report received from MICHELL Javed. Patient awake in bed, no SOB noted, verbally responsive and able to make needs known in Monegasque, bed in lowest position with alarm on and breaks engaged, denies any pain or discomfort at this time, IV line on left wrist patent and intact, suprapubic catheter in place, on contact isolation for MRSA wound on left foot ulcer, will continue to monitor and proceed with plan of care. Call light within reach.
--- NOTE | 2020-02-27 09:30 | NUR ---
RD ASSESSMENT & RECOMMENDATIONS SEE CARE ACTIVITY FOR COMPLETE ASSESSMENT DAILY ESTIMATED NEEDS: Needs based on wound, DM/ 73kg 25-30 kcals/kg 9870-3268 total kcals 1.25-1.5 g protein/kg 91-109 g total protein 25-30 mL/kg 7514-0236 total fluid mLs NUTRITION DIAGNOSIS: Increased protein intake needs R/T wound healing as evidenced by admitted w/ lt heel necrotic ulcer, likely OM per MRI. CURRENT DIET:[facility] MED PO DIET RECOMMENDATIONS: [facility] MED ADDITIONAL RECOMMENDATIONS: * Calibrated bedscale wt for accurate CBW * Wound healing- MVI x 1, Vit C 500mg QD - Deven BID as tolerated * Rec long acting insulin for improved BG control * Monitor for continued good PO intake .
--- NOTE | 2020-02-27 09:47 | NUR ---
DISCHARGE PLANNING PATIENT HAS BEEN REFERRED BACK TO [facility] P: [phone] F: [phone] Addendum: 02/28/20 at 1029 by LINDSAY STEPHENSON LVN LVN INCORRECT SNF INFORMATION
--- NOTE | 2020-02-27 10:13 | Urology Progress Note ---
Assessment/Plan Assessment/Plan: 1. Urinary retention history with chronic suprapubic tube. 2. BPH history. 3. Probable neurogenic bladder. 4. Hematuria. 5. Pyuria, rule out infection and colonization. 6. Proteinuria. 7. Renal insufficiency, possibly acute on chronic. monitor clinically maintain SPT, last exchanged 02/19 hand irrigated and do PRN monitor renal fxn abx as ordered cysto later consider renal imaging study proscar added Subjective Allergies: Coded Allergies: No Known Allergies (Unverified , 02/19/20) Subjective all noted, feels fair Objective Last 24 Hour Vital Signs Date Time Temp Pulse Resp B/P (MAP) Pulse Ox O2 Delivery O2 Flow Rate FiO2 02/27/20 09:00 Room Air 02/27/20 08:00 97.2 76 18 117/67 (84) 96 02/27/20 04:12 98.0 76 18 124/76 (92) 98 02/27/20 02:18 97.5 02/26/20 23:37 97.5 74 18 114/73 (87) 100 02/26/20 21:00 Room Air 02/26/20 20:00 98.2 79 18 132/72 (92) 96 02/26/20 17:50 97.3 02/26/20 16:00 97.3 64 20 112/59 (76) 96 Intake and Output 02/26/20 02/27/20 19:00 07:00 Intake Total 977.416 ml 510.0 ml Output Total 800 ml 1000 ml Balance 177.416 ml -490.0 ml Intake Oral 500 ml 400 ml IV Total 477.416 ml 110.0 ml Output Urine Total 800 ml 1000 ml Microbiology Date/Time Source Procedure Growth Status 02/19/20 19:00 Blood Blood Culture - Final NO GROWTH AFTER 5 DAYS Complete 02/22/20 11:20 Nasopharynx Coronavirus COVID-19 PCR (EVETTE) - Final Complete 02/19/20 20:08 Urine,Clean Catch Urine Culture - Final Pseudomonas Aeruginosa Complete 02/20/20 11:19 Foot Left Gram Stain - Final Complete 02/20/20 11:19 Wound Culture - Final Staphylococcus Aureus - Mrsa Proteus Mirabilis Enterococcus Faecalis Complete Current Medications Medications (Trade) Dose Ordered Sig/Parish Route PRN Reason Start Time Stop Time Status Last Admin Dose Admin Acetaminophen (Tylenol) 650 mg Q4H PRN ORAL mild pain and fever 02/19/20 23:15 03/20/20 23:14 02/27/20 01:48 Acetaminophen/ Hydrocodone Bitart ([place] 5/325) 1 tab Q4H PRN ORAL Severe Pain (Pain Scale 7-10) 02/27/20 10:00 03/05/20 09:59 Bisacodyl (Dulcolax) 10 mg DAILYPRN PRN RECTAL Constipation 02/21/20 11:30 05/21/20 11:29 02/21/20 15:48 Chlorhexidine Gluconate (Mulu-Hex 2%) 1 applic DAILY@2000 TOPIC 02/27/20 20:00 05/27/20 19:59 UNV Dextrose (Dextrose 50%) 25 ml Q30M PRN IV Hypoglycemia 02/19/20 23:15 05/19/20 23:14 Dextrose (Dextrose 50%) 50 ml Q30M PRN IV Hypoglycemia 02/19/20 23:15 05/19/20 23:14 Finasteride (Proscar) 5 mg DAILY ORAL 02/22/20 09:00 05/22/20 08:59 02/27/20 08:25 Heparin Sodium (Porcine) (Heparin 5000 units/ml) 5,000 units EVERY 8 HOURS SUBQ 02/20/20 06:00 04/05/20 05:59 02/27/20 05:40 Heparin Sodium/ Sodium Chloride (Heparin 1000 units/500ml Premix) 1,000 unit ONCE ONCE IV 02/27/20 10:15 02/27/20 10:16 UNV Insulin Aspart (NovoLOG) BEFORE MEALS AND HS SUBQ 02/20/20 06:30 05/20/20 06:29 02/27/20 05:41 Lidocaine HCl (Xylocaine 1% 30ml) 30 ml ONCE ONCE INJ 02/27/20 10:15 02/27/20 10:16 UNV Lorazepam (Ativan) 1 mg Q8H PRN ORAL For Anxiety 02/24/20 19:30 03/02/20 19:29 02/27/20 01:48 Magnesium Hydroxide (Mom) 30 ml BIDPRN PRN ORAL Constipation 02/21/20 11:30 03/22/20 11:29 02/21/20 11:37 Vancomycin HCl (Vanco rx to dose) 1 ea DAILY PRN MISC Per rx protocol 02/19/20 23:15 03/20/20 23:14 Vancomycin HCl 1 gm/Sodium Chloride 275 ml @ 183.708 mls/hr Q24H IVPB 02/26/20 14:00 03/02/20 13:59 02/26/20 14:55 Laboratory Tests 02/26/20 10:30: White Blood Count 14.5H, Red Blood Count 4.44L, Hemoglobin 12.4L, Hematocrit 37.3L, Mean Corpuscular Volume 84, Mean Corpuscular Hemoglobin 27.9, Mean Corpuscular Hemoglobin Concent 33.3, Red Cell Distribution Width 12.8, Platelet Count 598H, Mean Platelet Volume 4.9L, Neutrophils (%) (Auto) 77.3H, Lymphocytes (%) (Auto) 12.6L, Monocytes (%) (Auto) 6.0, Eosinophils (%) (Auto) 3.6H, Basophils (%) (Auto) 0.5, Sodium Level 133L, Potassium Level 4.3, Chloride Level 100, Carbon Dioxide Level 26, Anion Gap 8, Blood Urea Nitrogen 18 , Creatinine 1.3, Estimat Glomerular Filtration Rate 54.0, Glucose Level 291H, Calcium Level 8.9 02/26/20 11:50: Vancomycin Level Trough 10.1 Height (Feet): 5 Height (Inches): 8.00 Weight (Pounds): 218 Objective exam stable SPT in place urine yellow/aris with debris Juan Pineda MD February 27, 2020 10:13
[2020-02-27] MEDS ORDERED: Lidocaine 1% Plain 30 ml INJ PRN (10:15)
[2020-02-27] MEDS ORDERED: Heparin1,000 units/500ml Premix(Conc:2 units/ml) IV PRN (10:15)
--- NOTE | 2020-02-27 10:41 | Infectious Diseases Prog Note ---
"Assessment/Plan Assessment/Plan antibiotics : vancomycin, zosyn A 1. 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 pseudomonas UTI 3. diabetes mellitus 4. hypertension 5. leucocytosis improving 6. COVID 19 negative x 2 P 1. continue iv vancomycin 2. d/c zosyn 3. start ceftriaxone 4. will follow up cultures 5. suggest podiatry evaluation Subjective ROS Limited/Unobtainable: Yes Allergies: Coded Allergies: No Known Allergies (Unverified , 02/19/20) Objective Vital Signs Last 24 Hour Vital Signs Date Time Temp Pulse Resp B/P (MAP) Pulse Ox O2 Delivery O2 Flow Rate FiO2 02/27/20 09:00 Room Air 02/27/20 08:00 97.2 76 18 117/67 (84) 96 02/27/20 04:12 98.0 76 18 124/76 (92) 98 02/27/20 02:18 97.5 02/26/20 23:37 97.5 74 18 114/73 (87) 100 02/26/20 21:00 Room Air 02/26/20 20:00 98.2 79 18 132/72 (92) 96 02/26/20 17:50 97.3 02/26/20 16:00 97.3 64 20 112/59 (76) 96 Height (Feet): 5 Height (Inches): 8.00 Weight (Pounds): 218 Respiratory/Chest: lungs clear Cardiovascular: normal rate, regular rhythm, no gallop/murmur Abdomen: soft, non tender Extremities: no edema, other - left heel necrotic ulcer Laboratory Tests Test 02/26/20 11:50 Vancomycin Level Trough 10.1 ug/mL (5.0-12.0) Current Medications Medications (Trade) Dose Ordered Sig/Parish Route PRN Reason Start Time Stop Time Status Last Admin Dose Admin Acetaminophen (Tylenol) 650 mg Q4H PRN ORAL mild pain and fever 02/19/20 23:15 03/20/20 23:14 02/27/20 01:48 Acetaminophen/ Hydrocodone Bitart ([place] 5/325) 1 tab Q4H PRN ORAL Severe Pain (Pain Scale 7-10) 02/27/20 10:00 03/05/20 09:59 Bisacodyl (Dulcolax) 10 mg DAILYPRN PRN RECTAL Constipation 02/21/20 11:30 05/21/20 11:29 02/21/20 15:48 Chlorhexidine Gluconate (Mulu-Hex 2%) 1 applic DAILY@2000 TOPIC 02/27/20 20:00 05/27/20 19:59 Dextrose (Dextrose 50%) 25 ml Q30M PRN IV Hypoglycemia 02/19/20 23:15 05/19/20 23:14 Dextrose (Dextrose 50%) 50 ml Q30M PRN IV Hypoglycemia 02/19/20 23:15 05/19/20 23:14 Finasteride (Proscar) 5 mg DAILY ORAL 02/22/20 09:00 05/22/20 08:59 02/27/20 08:25 Heparin Sodium (Porcine) (Heparin 5000 units/ml) 5,000 units EVERY 8 HOURS SUBQ 02/20/20 06:00 04/05/20 05:59 02/27/20 05:40 Heparin Sodium/ Sodium Chloride (Heparin 1000 units/500ml Premix) 1,000 unit ONCE PRN IV PICC LINE PLACEMENT 02/27/20 10:15 02/29/20 10:14 Insulin Aspart (NovoLOG) BEFORE MEALS AND HS SUBQ 02/20/20 06:30 05/20/20 06:29 02/27/20 05:41 Lidocaine HCl (Xylocaine 1% 30ml) 30 ml ONCE PRN INJ PICC LINE PLACEMENT 02/27/20 10:15 02/29/20 10:14 Lorazepam (Ativan) 1 mg Q8H PRN ORAL For Anxiety 02/24/20 19:30 03/02/20 19:29 02/27/20 01:48 Magnesium Hydroxide (Mom) 30 ml BIDPRN PRN ORAL Constipation 02/21/20 11:30 03/22/20 11:29 02/21/20 11:37 Vancomycin HCl (Vanco rx to dose) 1 ea DAILY PRN MISC Per rx protocol 02/19/20 23:15 03/20/20 23:14 Vancomycin HCl 1 gm/Sodium Chloride 275 ml @ 183.708 mls/hr Q24H IVPB 02/26/20 14:00 03/02/20 13:59 02/26/20 14:55 Aneudy Mclaughlin MD February 27, 2020 10:41"
[2020-02-27 12:00] VITALS: BP 118/67
[2020-02-27] MEDS: Milk of Magnesia 30ml Ud ORAL PRN ×2 (12:15→22:49)
[2020-02-27] MEDS: cefTRIAXone 1 GM in D5W 55 ML IVPB SCH (12:15)
--- NOTE | 2020-02-27 12:32 | NUR ---
CASE MANAGEMENT:REVIEW SI;LEFT ANKLE OSTEOMYELITIS~MRSA, PROTEUS, ENTEROCOCCUS. PSEUDOMONAS UTI. 98.2 76 18 124/76 96% ON RA IS;ROCEPHIN IV Q24 HRS VANCOMYCIN IV Q24 HRS HEPARIN SUBQ Q8 HRS PROSCAR PO QD ZOSYN IV Q8 HRS MED SURG STATUS DCP;FROM [facility] PLAN OF CARE; PICC PLACEMENT
--- NOTE | 2020-02-27 12:40 | NUR ---
NURSE NOTES: Patient left the unit at 12:40 pm for PICC line insertion in stable condition. Spoke with daughter Zayda regarding procedure and obtained telephone consent with another RN, Madeleine.
--- NOTE | 2020-02-27 13:35 | Pre-Procedure Note/Attestation ---
Pre-Procedure Note/Attestation Complete Prior to Procedure Planned Procedure: not applicable Procedure Narrative: PICC line Indications for Procedure Pre-Operative Diagnosis: need IV access Attestation informed consent obtained by primary team, confirmed prior to procedure. Jose Yoder M.D. February 27, 2020 13:35
--- NOTE | 2020-02-27 13:50 | Podiatric Progress Note ---
Assessment/Plan Patient Davy Smith is a 75 year old male who was admitted on February 19, 2020 at 18:57 with Assessment/Plan A: - L foot Necrotic heel ulceration, with underlying OM. - UTI - DM - HTN P: - Pt seen and evaluated. - Discuss findings with patient. - lab and chart reviewed, WBC 14.5 - L ankle MRI reviewed, report demonstrates positive soft tissue infection, most likely acute OM of the posterior tubercle of calcaneus. - Risks and benefits of surgical intervention explained to patient. Pt agrees, would like to speak to daughter first. - Surgical consent ordered for L foot. - Pt scheduled for OR tomorrow 730AM. - Please medically optimize and clear patient for surgery. - NPO at midnight. - AM labs CBCw/diff, PT, PTT, INR CMP. - D/W RN - D/W Pt at bedside. - D/W daughter Corinna over the phone, agreed to plan above. - Podiatry will cont to monitor. 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 Pt resting comfortable at bedside. Pt denies any constitutional symptoms. Relates acute SOI to LLE. 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 Pt resting comfortable at bedside. Pt denies any constitutional symptoms. Relates acute SOI to LLE. Objective Exam Last 24 Hour Vital Signs Date Time Temp Pulse Resp B/P (MAP) Pulse Ox O2 Delivery O2 Flow Rate FiO2 02/27/20 12:00 98.2 66 18 118/67 (84) 98 02/27/20 09:00 Room Air 02/27/20 08:00 97.2 76 18 117/67 (84) 96 02/27/20 04:12 98.0 76 18 124/76 (92) 98 02/27/20 02:18 97.5 02/26/20 23:37 97.5 74 18 114/73 (87) 100 02/26/20 21:00 Room Air 02/26/20 20:00 98.2 79 18 132/72 (92) 96 02/26/20 17:50 97.3 02/26/20 16:00 97.3 64 20 112/59 (76) 96 Microbiology Date/Time Source Procedure Growth Status 02/19/20 19:00 Blood Blood Culture - Final NO GROWTH AFTER 5 DAYS Complete 02/22/20 11:20 Nasopharynx Coronavirus COVID-19 PCR (EVETTE) - Final Complete 02/19/20 20:08 Urine,Clean Catch Urine Culture - Final Pseudomonas Aeruginosa Complete 02/20/20 11:19 Foot Left Gram Stain - Final Complete 02/20/20 11:19 Wound Culture - Final Staphylococcus Aureus - Mrsa Proteus Mirabilis Enterococcus Faecalis Complete Exam Narrative Focused BL LE Derm: Right: s/p R foot Chopart amputation, plantar distal eschar noted. (-) acute SOI. Left: s/p 3rd digit. L heel ulceration is noted, alexandra-wound erythema and edema is noted. (+) fluid collection is noted on exam. Increase temperature differential. Vasc: +1/4 DP/PT Neuro: SILT diminished. MSK: MS/ROM Diminished. Demetrio Boyer DPM February 27, 2020 13:50
--- NOTE | 2020-02-27 14:08 | Diagnostic Imaging Report ---
Indications: Needs long-term IV access Technique: Ultrasound confirms patent compressible left basilic vein. Total sterile technique, including sterile probe cover and sterile gel, hat, mask,, sterile gown, large sterile drape, and preparation with 2% chlorhexidine utilized. Local anesthesia with 1% lidocaine. Under real-time ultrasound guidance, puncture left basilic vein using 21-gauge needle, documented and archived, passage 0.018 guidewire under direct fluoroscopy, which was used to determine appropriate catheter length, exchange for 4.5 Telugu peel-away sheath. 4 Telugu dual-lumen power PICC cut to 47 cm. It was inserted through the peel-away sheath. Peel-away sheath and guidewire removed. Catheter fixed to the skin. Both catheter ports aspirated and flushed. Patient tolerated procedure well, without immediate complication. Digital radiograph documents satisfactory catheter tip position, at the cavoatrial junction. Total fluoroscopy time 14.2 seconds. Total fluoroscopy dose 2.02 mGy. Total procedure time 15 minutes. Impression: Successful placement of 4 Telugu double-lumen PICC under sonographic and fluoroscopic guidance, as described above.
[2020-02-27] MEDS: Vancomycin 1 GM in NS 275 ML IVPB SCH (14:21)
[2020-02-27] MEDS: HYDROcodone/Acetamin 5/325 tab ORAL PRN (14:22)
--- NOTE | 2020-02-27 14:45 | NUR ---
NURSE NOTES: Telephone consent/verbal approval obtained from daughter, Zayda John for left foot incision and drainage, removal of all non viable tissue, deep wound culture, deep bone culture and deep biopsy for tomorrow as per Dr. Boyer, witnessed by another RN, Madeleine.
[2020-02-27 16:00] VITALS: BP 129/74
--- NOTE | 2020-02-27 18:02 | NUR ---
NURSE NOTES: Medical clearance obtained from Dr. Lamas for patient's procedure tomorrow (left foot incision and drainage, removal of all non viable tissue, deep wound culture, deep bone culture and deep biopsy)
--- NOTE | 2020-02-27 19:22 | NUR ---
HAND-OFF: Report given to MICHELL Landrum.
--- NOTE | 2020-02-27 19:23 | NUR ---
NURSE NOTES: Receive Patient in bed awake and verbal. No sob, pain, fever ,and cough. pt got picc line and its asymptomatic and suprapubic catheter in place. pt is on contact isolation for MRSA wound. Bed in the lower position, locked and alarm on. Call light within reach.We will keep monitoring the pt
[2020-02-27 20:00] VITALS: BP 134/76
--- NOTE | 2020-02-27 20:45 | Progress Note ---
DATE: 02/27/2020 SUBJECTIVE: This is 75-year-old male came to the emergency room for having nonhealing ulcer and possible osteomyelitis on the foot. Patient underwent MRI, results are not out. PHYSICAL EXAMINATION: GENERAL: Doing better. VITAL SIGNS: Blood pressure 130/70, pulse 84, respirations 18, no fever. CHEST: Bilateral decreased breath sounds. CARDIOVASCULAR: Regular rhythm. ABDOMEN: Soft. EXTREMITIES: CCE. NEUROLOGICAL: Patient has generalized weakness. ASSESSMENT: 1. Nonhealing ulcer. 2. Rule out osteomyelitis. 3. Hypertension. 4. Diabetes. 5. Peripheral vascular disease. PLAN: Waiting for MRI. Waiting for further treatment. Meanwhile, continue antibiotics. Continue wound care and continue sliding scale, Accu-Chek. Arsen Lamas M.D. DR: FIORELLA JOB#: [id number] CC:
[2020-02-27] MEDS: Dyna-Hex 2% Top Sol 2oz TOPIC SCH (21:30)
--- NOTE | 2020-02-27 23:39 | NUR ---
NURSE NOTES: pt did not have a bowel movement since 02/20. I gave him milk of magnesium.
[2020-02-28] VITALS (15 sets, daily range): BP systolic 92–156; BP diastolic 64–88
[2020-02-28] MEDS: Heparin 5000 units/ml inj SUBQ SCH ×3 (05:55→21:17)
[2020-02-28] MEDS: NovoLOG Insulin Flexpen SUBQ SCH ×4 (05:55→21:18)
[2020-02-28] MEDS ORDERED: Lidocaine 2% MPF 5ml Vial INJ ONE (07:01)
[2020-02-28] MEDS ORDERED: Bacitracin 50000 Units Vial ONE (07:01)
[2020-02-28] MEDS ORDERED: fentaNYL 100 mcg/2 mL IV ONE (07:07)
[2020-02-28] MEDS ORDERED: NS Irrig 1000ml IRRIG ONE ×2 (07:12→07:52)
[2020-02-28] MEDS ORDERED: Lidocaine 1% MPF 10mg/ml 5ml ONE (07:13)
--- NOTE | 2020-02-28 07:20 | NUR ---
NURSE NOTES: pt went to surgery
[2020-02-28] MEDS ORDERED: NS Irrig 1000ml ONE (07:30)
[2020-02-28] MEDS ORDERED: Sterile Water Irrig 1000ml IRRIG ONE (07:30)
[2020-02-28] MEDS ORDERED: LR 1000ml ONE (07:30)
--- NOTE | 2020-02-28 07:40 | NUR ---
HAND-OFF: Report given to MICHELL Hess.
--- NOTE | 2020-02-28 07:47 | NUR ---
NURSE NOTES: Per report Patient off floor in surgery.
--- NOTE | 2020-02-28 07:54 | Pre-Procedure Note/Attestation ---
Pre-Procedure Note/Attestation Complete Prior to Procedure Planned Procedure: left Procedure Narrative: Patient consented for Left foot Incision and Drainage, removal of all non- viable tissue, bone culture, bone biopsy and deep wound culture. Indications for Procedure Pre-Operative Diagnosis: 1. Left foot Heel abscess. 2. Left heel Necrotic ulceration 3. Left foot Acute Osteomyelitis of Calcaneus. Attestation I attest that I discussed the nature of the procedure; its benefits; risks and complications; and alternatives (and the risks and benefits of such alternatives ), prior to the procedure, with the patient (or the patient's legal food service sales representatives). Patient confirmed NPO since midnight. Appropriate site marked Left Lower Extremity. Lab and chart reviewed. I attest that, if there was a reasonable possibility of needing a blood transfusion, the patient (or the patient's legal food service sales representatives) was given the [facility] standardized written summary, pursuant to the Manolo Vesta Blood Safety Act ([place] Health and Safety Code # 1645, as amended). I attest that I re-evaluated the patient just prior to the surgery and that there has been no change in the patient's H&P, except as documented below: Demetrio Boyer DPM February 28, 2020 07:54
[2020-02-28] MEDS ORDERED: LR 1000ml 1,000 ML IVLG SCH (08:27)
--- NOTE | 2020-02-28 08:27 | Anethesia Preoperative Eval ---
Anesthesia Pre-op PMH/ROS General Date of Evaluation: February 28, 2020 Time of Evaluation: 07:12 Anesthesiologist: Jay ASA Score: ASA 3 Mallampati Score Class I : Soft palate, uvula, fauces, pillars visible Class II: Soft palate, uvula, fauces visible Class III: Soft palate, base of uvula visible Class IV: Only hard plate visible Mallampati Classification: Class II Surgeon: Merlin Diagnosis: L foot wound Surgical Procedure: I&D of L foot wound Anesthesia History: none Social History: smoking - h/o, alcohol use - h/o abuse Family History: no anesthesia problems Allergies: Coded Allergies: No Known Allergies (Unverified , 02/19/20) Medications: see eMAR Patient NPO?: Yes Past Medical History Cardiovascular: Reports: HTN; Denies: CAD, OK, valve dz, arrhythmia, other Pulmonary: Reports: COPD; Denies: asthma, CRIS, other Gastrointestinal/Genitourinary: Reports: GERD, CRI; Denies: ESRD, other Neurologic/Psychiatric: Reports: depression/anxiety; Denies: dementia, CVA, TIA, other Endocrine: Reports: DM - poorly con; Denies: hypothyroidism, steroids, other HEENT: Denies: cataract (L), cataract (R), glaucoma, TUNUNAK (L), TUNUNAK (R), other Hematology/Immune: Reports: anemia - mild; Denies: DVT, bleeding disorder, other Musculoskeletal/Integumentary: Reports: OA; Denies: RA, DJD, DDD, edema, other PMH Narrative: as above PSxH Narrative: R BKA Anesthesia Pre-op Phys. Exam Physician Exam Last Vital Signs Date Time Temp Pulse Resp B/P (MAP) Pulse Ox O2 Delivery O2 Flow Rate FiO2 02/28/20 04:00 97.7 74 24 142/76 (98) 96 02/27/20 21:00 Room Air Constitutional: NAD Neurologic: CN 2-12 intact Cardiovascular: RRR, no M/R/G Respiratory: CTA Gastrointestinal: S/NT/ND Airway Exam Mallampati Score: Class II MO: limited Neck: stiff ROM: limited Teeth: missing Dentures: no upper, no lower Anesthesia Pre-op A/P Labs see chart Studies Pre-op Studies: EKG - SR Risk Assessment & Plan Assessment: ASA 3 Plan: GA with LMA Status Change Before Surgery: No Pre-Antibiotics Drug: Ancef 1gr. Given Within 1 Hr of Incision: Yes Time Given: 07:45 Cecilio Thompson MD February 28, 2020 08:27
[2020-02-28] MEDS ORDERED: Hydromorphone 0.5mg/0.5ml inj IVP PRN (08:30)
--- NOTE | 2020-02-28 08:56 | Operative Note - PDOC ---
Operative Note Operative Note Date of Operation/Procedure: February 28, 2020 Pre-op Diagnosis: 1. Left foot Heel abscess. 2. Left heel Necrotic ulceration 3. Left foot Acute Osteomyelitis of Calcaneus. Procedure: 1. Left foot Incision and drainage removal of all non-viable tissue. 2. Left foot excisional ulcer debridement down to level of muscle. 3. Left foot deep wound culture x 2, calcaneus. 4. Left foot bone biopsy, posterior calcaneal tubercle. 5. Left foot bone culture, posterior calcaneal tubercle. Post-op Diagnosis: Same as pre-op Post-op Diagnosis: same as pre-op Operative Findings: consistent w/pre-op dx studies Surgeon: Dr. Merlin DPM [place]: None Additional Surgeons: None Anesthesiologist: Dr. Fiore Anesthesia: general Specimen: yes - 3. Left foot deep wound culture x 2, calcaneus. Complications: none Condition: stable Estimated Blood Loss: minimal Drains: none Implant(s) used?: No Indications for Procedure Infected soft tissue and bone. Description of Procedure See operative note for details. Demetrio Boyer DPM February 28, 2020 08:56
--- NOTE | 2020-02-28 09:02 | Immediate Post-Op Evaluation ---
Immediate Post-Op Evalulation Immediate Post-Op Evalulation Procedure: I&D pf L foot wound Date of Evaluation: February 28, 2020 Time of Evaluation: 09:01 IV Fluids: 500 Blood Products: none Estimated Blood Loss: min Urinary Output: none Blood Pressure Systolic: 98 Blood Pressure Diastolic: 56 Pulse Rate: 78 Respiratory Rate: 20 O2 Sat by Pulse Oximetry: 98 Temperature (Fahrenheit): 97.8 Pain Score (1-10): 1 Nausea: No Vomiting: No Complications none Patient Status: reacts, patent, none Hydration Status: adequate Cecilio Thompson MD February 28, 2020 09:02
[2020-02-28] MEDS ORDERED: Insulin Human Regular 100units/ml 3ml SUBQ SCH (09:24)
--- NOTE | 2020-02-28 10:29 | NUR ---
NURSE NOTES: Patient received from recovery,patient is awake and alert and oriented,respirations unlabored.Hector wrap dressing noted to left foot surgical site,in place.Supra pubic catheter is in place and draining aris color urine IV in place. Patient state he is hungry,food provided.Bed alarm on,call light within reach.
--- NOTE | 2020-02-28 10:30 | NUR ---
DISCHARGE PLANNING PATIENT HAS BEEN REFERRED BACK TO [facility] P: [phone] F: [phone] Addendum: 02/28/20 at 1208 by LINDSAY STEPHENSON LVN LVN FOLLOW UP CALL MADE. S/W TJ. STATES COMPLETE INQUIRY PACKET NOT RECEIVED VIA FAX. INQUIRY RESENT VIA EMAIL TO [email or web address] Addendum: 02/28/20 at 1532 by LINDSAY STEPHENSON LVN LVN PER TJ, PATIENT WILL RETURN UPON DISCHARGE TO BED 14-A SKILLED
[2020-02-28 12:03] LABS: BASOPHILS % (AUTO) 0.4 % (0.0-2.0); EOSINOPHILS % (AUTO) 3.1 % (0.0-3.0); HEMATOCRIT 37.3 % (42.0-52.0); HEMOGLOBIN 12.3 G/DL (14.2-18.0); LYMPHOCYTES % (AUTO) 14.9 % (20.0-45.0); MEAN CORPUSCULAR VOLUME 85 FL (80-99); MONOCYTES % (AUTO) 6.7 % (1.0-10.0); NEUTROPHILS % (AUTO) 74.9 % (45.0-75.0); PLATELET COUNT 588 K/UL (150-450); RED BLOOD COUNT 4.39 M/UL (4.70-6.10); RED CELL DISTRIBUTION WIDTH 13.2 % (11.6-14.8); WHITE BLOOD COUNT 12.6 K/UL (4.8-10.8)
[2020-02-28] MEDS: cefTRIAXone 1 GM in D5W 55 ML IVPB SCH (12:03)
--- NOTE | 2020-02-28 12:07 | Urology Progress Note ---
Assessment/Plan Assessment/Plan: 1. Urinary retention history with chronic suprapubic tube. 2. BPH history. 3. Probable neurogenic bladder. 4. Hematuria. 5. Pyuria, rule out infection and colonization. 6. Proteinuria. 7. Renal insufficiency, possibly acute on chronic. monitor clinically maintain SPT, last exchanged 02/19 hand irrigated and do PRN monitor renal fxn abx as ordered cysto later consider renal imaging study proscar added Subjective Allergies: Coded Allergies: No Known Allergies (Unverified , 02/19/20) Subjective all noted, feels fair, s/p foot I+D Objective Last 24 Hour Vital Signs Date Time Temp Pulse Resp B/P (MAP) Pulse Ox O2 Delivery O2 Flow Rate FiO2 02/28/20 10:41 97.9 02/28/20 10:35 Room Air 02/28/20 10:15 97.9 62 13 118/65 100 Nasal Cannula 3 02/28/20 10:00 63 18 117/65 100 Nasal Cannula 3 02/28/20 09:45 65 16 126/71 100 Nasal Cannula 3 02/28/20 09:35 66 15 125/69 100 Nasal Cannula 3 02/28/20 09:25 65 14 119/70 100 Nasal Cannula 3 02/28/20 09:15 64 14 125/65 100 Simple Mask 6 02/28/20 09:05 65 19 109/68 100 Simple Mask 6 02/28/20 09:02 78 20 98 02/28/20 09:00 66 18 111/66 100 Simple Mask 6 02/28/20 08:55 97.7 65 15 92/64 100 Simple Mask 6 02/28/20 04:00 97.7 74 24 142/76 (98) 96 02/28/20 00:00 98.2 76 24 156/75 (102) 98 02/27/20 21:00 Room Air 02/27/20 20:00 97.9 69 22 134/76 (95) 98 02/27/20 16:00 97.8 78 18 129/74 (92) 97 Intake and Output 02/27/20 02/28/20 19:00 07:00 Intake Total 1122.416 ml Output Total 1100 ml 1000 ml Balance 22.416 ml -1000 ml Intake Oral 700 ml IV Total 422.416 ml Output Urine Total 1100 ml 1000 ml # Bowel Movements 1 Microbiology Date/Time Source Procedure Growth Status 02/19/20 19:00 Blood Blood Culture - Final NO GROWTH AFTER 5 DAYS Complete 02/22/20 11:20 Nasopharynx Coronavirus COVID-19 PCR (EVETTE) - Final Complete 02/19/20 20:08 Urine,Clean Catch Urine Culture - Final Pseudomonas Aeruginosa Complete 02/20/20 11:19 Foot Left Gram Stain - Final Complete 02/20/20 11:19 Wound Culture - Final Staphylococcus Aureus - Mrsa Proteus Mirabilis Enterococcus Faecalis Complete Current Medications Medications (Trade) Dose Ordered Sig/Parish Route PRN Reason Start Time Stop Time Status Last Admin Dose Admin Acetaminophen (Tylenol) 650 mg Q4H PRN ORAL mild pain and fever 02/19/20 23:15 03/20/20 23:14 02/27/20 01:48 Acetaminophen/ Hydrocodone Bitart ([place] 5/325) 1 tab Q4H PRN ORAL Severe Pain (Pain Scale 7-10) 02/27/20 10:00 03/05/20 09:59 02/27/20 14:22 Bisacodyl (Dulcolax) 10 mg DAILYPRN PRN RECTAL Constipation 02/21/20 11:30 05/21/20 11:29 02/27/20 23:54 Ceftriaxone Sodium 1 gm/ Dextrose 55 ml @ 110 mls/hr Q24H IVPB 02/27/20 12:00 03/05/20 11:59 02/27/20 12:15 Chlorhexidine Gluconate (Mulu-Hex 2%) 1 applic DAILY@2000 TOPIC 02/27/20 20:00 05/27/20 19:59 02/27/20 21:30 Dextrose (Dextrose 50%) 25 ml Q30M PRN IV Hypoglycemia 02/19/20 23:15 05/19/20 23:14 Dextrose (Dextrose 50%) 50 ml Q30M PRN IV Hypoglycemia 02/19/20 23:15 05/19/20 23:14 Finasteride (Proscar) 5 mg DAILY ORAL 02/22/20 09:00 05/22/20 08:59 02/27/20 08:25 Heparin Sodium (Porcine) (Heparin 5000 units/ml) 5,000 units EVERY 8 HOURS SUBQ 02/20/20 06:00 04/05/20 05:59 02/27/20 22:26 Heparin Sodium/ Sodium Chloride (Heparin 1000 units/500ml Premix) 1,000 unit ONCE PRN IV PICC LINE PLACEMENT 02/27/20 10:15 02/29/20 10:14 Insulin Aspart (NovoLOG) BEFORE MEALS AND HS SUBQ 02/20/20 06:30 05/20/20 06:29 02/27/20 21:35 Lidocaine HCl (Xylocaine 1% 30ml) 30 ml ONCE PRN INJ PICC LINE PLACEMENT 02/27/20 10:15 02/29/20 10:14 Lorazepam (Ativan) 1 mg Q8H PRN ORAL For Anxiety 02/24/20 19:30 03/02/20 19:29 02/27/20 12:15 Magnesium Hydroxide (Mom) 30 ml BIDPRN PRN ORAL Constipation 02/21/20 11:30 03/22/20 11:29 02/27/20 22:49 Vancomycin HCl (Vanco rx to dose) 1 ea DAILY PRN MISC Per rx protocol 02/19/20 23:15 03/20/20 23:14 Vancomycin HCl 1 gm/Sodium Chloride 275 ml @ 183.708 mls/hr Q24H IVPB 02/26/20 14:00 03/02/20 13:59 02/27/20 14:21 Laboratory Tests 02/28/20 11:55: White Blood Count 12.6H, Red Blood Count 4.39L, Hemoglobin 12.3L, Hematocrit 37.3L, Mean Corpuscular Volume 85, Mean Corpuscular Hemoglobin 28.1, Mean Corpuscular Hemoglobin Concent 33.1, Red Cell Distribution Width 13.2, Platelet Count 588H, Mean Platelet Volume 4.4L, Neutrophils (%) (Auto) 74.9, Lymphocytes (%) (Auto) 14.9L, Monocytes (%) (Auto) 6.7, Eosinophils (%) (Auto) 3.1H, Basophils (%) (Auto) 0.4, Prothrombin Time [Pending], Prothromb Time International Ratio [Pending], Activated Partial Thromboplast Time [Pending], Sodium Level [Pending], Potassium Level [Pending], Chloride Level [Pending], Carbon Dioxide Level [Pending], Blood Urea Nitrogen [Pending], Creatinine [ Pending], Estimat Glomerular Filtration Rate [Pending], Glucose Level [Pending] , Calcium Level [Pending], Total Bilirubin [Pending], Aspartate Amino Transf ( AST/SGOT) [Pending], Alanine Aminotransferase (ALT/SGPT) [Pending], Alkaline Phosphatase [Pending], Total Protein [Pending], Albumin [Pending], Globulin [ Pending] Height (Feet): 5 Height (Inches): 6.00 Weight (Pounds): 217 Objective exam stable SPT in place urine yellow/aris with debris Juan Pineda MD February 28, 2020 12:07
[2020-02-28 12:23] LABS: ALANINE AMINOTRANSFERASE 40 U/L (12-78); ALBUMIN 2.1 G/DL (3.4-5.0); ALBUMIN/GLOBULIN RATIO 0.4 (1.0-2.7); ALKALINE PHOSPHATASE 183 U/L (46-116); ANION GAP 7 mmol/L (5-15); ASPARTATE AMINO TRANSFERASE 25 U/L (15-37); BILIRUBIN,TOTAL 0.2 MG/DL (0.2-1.0); BLOOD UREA NITROGEN 20 mg/dL (7-18); CALCIUM 8.6 MG/DL (8.5-10.1); CARBON DIOXIDE 27 MMOL/L (21-32); CHLORIDE 102 MMOL/L (98-107); CREATININE 1.4 MG/DL (0.55-1.30); POTASSIUM 4.8 MMOL/L (3.5-5.1); SODIUM 136 MMOL/L (136-145)
--- NOTE | 2020-02-28 13:55 | NUR ---
CHARGE NURSE NOTE: Spoke with . (s/p left foot I@D) He will see patient tomorrow, and if pt stable d/c him.
[2020-02-28] MEDS: HYDROcodone/Acetamin 5/325 tab ORAL PRN (14:22)
[2020-02-28] MEDS: Vancomycin 1 GM in NS 275 ML IVPB SCH (14:26)
--- NOTE | 2020-02-28 15:14 | Infectious Diseases Prog Note ---
Assessment/Plan Assessment/Plan A; 1. Left foot ulcer infection , osteomyelitis & abscess Wound culture: MRSA, Enterococcus & Proteus 2. Pneumonia COVID19 X 2: negative 3. Diabetes. 4. Hypertension. 5. Sepsis 6. UTI treated PLAN: 1. Continue IV vancomycin and Ceftriaxone 2. We will f/u surgical cultures Subjective ROS Limited/Unobtainable: No Constitutional: Reports: no symptoms Respiratory: Reports: no symptoms Gastrointestinal/Abdominal: Reports: no symptoms Genitourinary: Reports: no symptoms Musculoskeletal: Reports: pain, other - had left heel surgery today, pain in surgical site Allergies: Coded Allergies: No Known Allergies (Unverified , 02/19/20) Objective Vital Signs Last 24 Hour Vital Signs Date Time Temp Pulse Resp B/P (MAP) Pulse Ox O2 Delivery O2 Flow Rate FiO2 02/28/20 12:00 97.9 66 18 112/67 (82) 96 02/28/20 10:41 97.9 02/28/20 10:35 Room Air 02/28/20 10:15 97.9 62 13 118/65 100 Nasal Cannula 3 02/28/20 10:00 63 18 117/65 100 Nasal Cannula 3 02/28/20 09:45 65 16 126/71 100 Nasal Cannula 3 02/28/20 09:35 66 15 125/69 100 Nasal Cannula 3 02/28/20 09:25 65 14 119/70 100 Nasal Cannula 3 02/28/20 09:15 64 14 125/65 100 Simple Mask 6 02/28/20 09:05 65 19 109/68 100 Simple Mask 6 02/28/20 09:02 78 20 98 02/28/20 09:00 66 18 111/66 100 Simple Mask 6 02/28/20 08:55 97.7 65 15 92/64 100 Simple Mask 6 02/28/20 04:00 97.7 74 24 142/76 (98) 96 02/28/20 00:00 98.2 76 24 156/75 (102) 98 02/27/20 21:00 Room Air 02/27/20 20:00 97.9 69 22 134/76 (95) 98 02/27/20 16:00 97.8 78 18 129/74 (92) 97 Height (Feet): 5 Height (Inches): 6.00 Weight (Pounds): 217 General Appearance: no acute distress HEENT: mucous membranes moist Respiratory/Chest: lungs clear Cardiovascular: normal rate, other - PICC line Abdomen: soft, non tender Extremities: other - left foot edema, right foot amputation Neurologic/Psychiatric: alert, oriented x 3, responsive Laboratory Tests Test 02/28/20 11:55 White Blood Count 12.6 K/UL (4.8-10.8) H Red Blood Count 4.39 M/UL (4.70-6.10) L Hemoglobin 12.3 G/DL (14.2-18.0) L Hematocrit 37.3 % (42.0-52.0) L Mean Corpuscular Volume 85 FL (80-99) Mean Corpuscular Hemoglobin 28.1 PG (27.0-31.0) Mean Corpuscular Hemoglobin Concent 33.1 G/DL (32.0-36.0) Red Cell Distribution Width 13.2 % (11.6-14.8) Platelet Count 588 K/UL (150-450) H Mean Platelet Volume 4.4 FL (6.5-10.1) L Neutrophils (%) (Auto) 74.9 % (45.0-75.0) Lymphocytes (%) (Auto) 14.9 % (20.0-45.0) L Monocytes (%) (Auto) 6.7 % (1.0-10.0) Eosinophils (%) (Auto) 3.1 % (0.0-3.0) H Basophils (%) (Auto) 0.4 % (0.0-2.0) Prothrombin Time 11.2 SEC (9.30-11.50) Prothromb Time International Ratio 1.0 (0.9-1.1) Activated Partial Thromboplast Time 32 SEC (23-33) Sodium Level 136 MMOL/L (136-145) Potassium Level 4.8 MMOL/L (3.5-5.1) Chloride Level 102 MMOL/L (98-107) Carbon Dioxide Level 27 MMOL/L (21-32) Anion Gap 7 mmol/L (5-15) Blood Urea Nitrogen 20 mg/dL (7-18) H Creatinine 1.4 MG/DL (0.55-1.30) H Estimat Glomerular Filtration Rate 49.5 mL/min (>60) Glucose Level 265 MG/DL (74-106) H Calcium Level 8.6 MG/DL (8.5-10.1) Total Bilirubin 0.2 MG/DL (0.2-1.0) Aspartate Amino Transf (AST/SGOT) 25 U/L (15-37) Alanine Aminotransferase (ALT/SGPT) 40 U/L (12-78) Alkaline Phosphatase 183 U/L (46-116) H Total Protein 7.3 G/DL (6.4-8.2) Albumin 2.1 G/DL (3.4-5.0) L Globulin 5.2 g/dL Albumin/Globulin Ratio 0.4 (1.0-2.7) L Current Medications Medications (Trade) Dose Ordered Sig/Parish Route PRN Reason Start Time Stop Time Status Last Admin Dose Admin Acetaminophen (Tylenol) 650 mg Q4H PRN ORAL mild pain and fever 02/19/20 23:15 03/20/20 23:14 02/27/20 01:48 Acetaminophen/ Hydrocodone Bitart ([place] 5/325) 1 tab Q4H PRN ORAL Severe Pain (Pain Scale 7-10) 02/27/20 10:00 03/05/20 09:59 02/28/20 14:22 Bisacodyl (Dulcolax) 10 mg DAILYPRN PRN RECTAL Constipation 02/21/20 11:30 05/21/20 11:29 02/27/20 23:54 Ceftriaxone Sodium 1 gm/ Dextrose 55 ml @ 110 mls/hr Q24H IVPB 02/27/20 12:00 03/05/20 11:59 02/28/20 12:03 Chlorhexidine Gluconate (Mulu-Hex 2%) 1 applic DAILY@2000 TOPIC 02/27/20 20:00 05/27/20 19:59 02/27/20 21:30 Dextrose (Dextrose 50%) 25 ml Q30M PRN IV Hypoglycemia 02/19/20 23:15 05/19/20 23:14 Dextrose (Dextrose 50%) 50 ml Q30M PRN IV Hypoglycemia 02/19/20 23:15 05/19/20 23:14 Finasteride (Proscar) 5 mg DAILY ORAL 02/22/20 09:00 05/22/20 08:59 02/28/20 12:04 Heparin Sodium (Porcine) (Heparin 5000 units/ml) 5,000 units EVERY 8 HOURS SUBQ 02/20/20 06:00 04/05/20 05:59 02/28/20 14:32 Heparin Sodium/ Sodium Chloride (Heparin 1000 units/500ml Premix) 1,000 unit ONCE PRN IV PICC LINE PLACEMENT 02/27/20 10:15 02/29/20 10:14 Insulin Aspart (NovoLOG) BEFORE MEALS AND HS SUBQ 02/20/20 06:30 05/20/20 06:29 02/28/20 12:07 Lidocaine HCl (Xylocaine 1% 30ml) 30 ml ONCE PRN INJ PICC LINE PLACEMENT 02/27/20 10:15 02/29/20 10:14 Lorazepam (Ativan) 1 mg Q8H PRN ORAL For Anxiety 02/24/20 19:30 03/02/20 19:29 02/27/20 12:15 Magnesium Hydroxide (Mom) 30 ml BIDPRN PRN ORAL Constipation 02/21/20 11:30 03/22/20 11:29 02/27/20 22:49 Vancomycin HCl (Vanco rx to dose) 1 ea DAILY PRN MISC Per rx protocol 02/19/20 23:15 03/20/20 23:14 Vancomycin HCl 1 gm/Sodium Chloride 275 ml @ 183.708 mls/hr Q24H IVPB 02/26/20 14:00 03/02/20 13:59 02/28/20 14:26 Hill Rodriguez MD February 28, 2020 15:14
--- NOTE | 2020-02-28 16:30 | Operative Note - Dictated ---
DATE OF OPERATION: 02/28/2020 SURGEON: Demetrio Boyer DPM MILL ROLL REWINDER: None. ANESTHESIOLOGIST: Cecilio Thompson MD. PREOPERATIVE DIAGNOSES: 1. Left foot soft tissue \Abscess formation calcaneus. 2. Left foot necrotic ulceration. 3. Left foot acute osteomyelitis. POSTOPERATIVE DIAGNOSES: 1. Left foot soft tissue Abscess formation calcaneus. 2. Left foot necrotic ulceration. 3. Left foot acute osteomyelitis. OPERATION: 1. Left foot incision and drainage removal of all nonviable tissue. 2. Left foot excision and ulcer debridement down to the level of the muscle. 3. Left foot deep wound culture x2 calcaneus. 4. Left foot bone biopsy, deep posterior calcaneal tubercle. 5. Left foot bone culture, deep posterior calcaneal tubercle. ANESTHESIA: General anesthesia. ESTIMATED BLOOD LOSS: Less than 20 mL. MATERIALS: None. SPECIMEN: 1. Left foot deep wound culture x2 calcaneus. 2. Left foot bone biopsy, posterior calcaneal tubercle. 3. Left foot bone culture, deep posterior calcaneal tubercle. COMPLICATIONS: None. PROCEDURE IN DETAIL: The patient was seen in the holding room. The risks, benefits, complications, treatment options, and expected outcomes were discussed with the patient. The risks and potential complications of the problem and proposed treatment including but not limited to infection, nerve injury, vascular injury, persistent pain, potential skin necrosis, deep venous thrombosis, possible pulmonary embolus, and complications of anesthetics and surgery. The patient concurred with proposed plan, gave informed consent. The site of the surgery was preoperatively noted and marked on the left lower extremity. The patient was taken to the operating room and identified as Davy Zuluaga and the procedure verified as left foot incision and drainage, removal of all nonviable tissue, left foot excision and ulcer debridement down to the level of the muscle, left foot deep wound culture x2 calcaneus, left foot bone biopsy, left foot bone culture. A time-out was held and above information was confirmed. The patient was brought to the operating room and placed on the operating room table in the supine position. Left foot incision and drainage, removal of all nonviable tissue, excision of ulcer to the down to the level of muscle, deep wound culture, bone culture, bone biopsy. The left lower leg, ankle, and foot were scrubbed, prepped, and draped in usual aseptic manner. Upon successful induction of anesthesia, attention was directed to the left posterior calcaneus. The posterior calcaneus was noted to have necrotic ulcer en total. Next, using a #10 blade, excisional debridement was performed and all nonviable tissue was removed. Next, using hemostat, plantar medial, plantar central, then plantar lateral compartments were opened and expressed and approximately 5 mL of purulence was noted. Next, deep wound culture was obtained from the posterior calcaneus. Next, another deep wound culture was obtained from the plantar posterior calcaneus. Both specimens were passed from operating table and sent for culture and sensitivity. Next using curette, the ulcer was debrided down to the level of muscle. Minimal postdebridement bleeding was noted. Next using bone marrow biopsy kit, [employer] needle was used to obtain a bone specimen from posterior calcaneal tubercle. The specimen was sent from operating table and passed as two separate specimens from the same site, one for bone culture, one for bone biopsy. Next, left heel was then irrigated with normal saline 0.5 liter. Skin was then left open and packed with sterile packing 1 inch. A Marleny, Xeroform, and dry dressing were then applied. Instrument, sponge, needle counts were correct prior to wound closure and after conclusion of the case. Patient tolerated the procedure well and was transferred to the PACU in the awake and in good condition. Demetrio Boyer DPM DR: OLEG JOB#: [id number] CC: RENNY
--- NOTE | 2020-02-28 18:00 | NUR ---
NURSE NOTES: Dressing to the left foot remains clean intact,left foot elevated on pillows.
--- NOTE | 2020-02-28 19:32 | NUR ---
HAND-OFF: Report given to ISRAEL GALARZA.
--- NOTE | 2020-02-28 20:11 | NUR ---
NURSE NOTES: Received patient awake, alert, verbal, speaks little [place]an, resting in bed, comfortable, no SOB noted.
[2020-02-28] MEDS: Dyna-Hex 2% Top Sol 2oz TOPIC SCH (21:13)
[2020-02-28] MEDS: Milk of Magnesia 30ml Ud ORAL PRN (21:13)
[2020-02-28] MEDS: HYDROcodone/Acetamin 10/325 tab ORAL PRN (23:57)
--- NOTE | 2020-02-29 02:15 | Progress Note ---
DATE: 02/28/2020 SUBJECTIVE: This is an elderly male, underwent surgery on right foot nonhealing ulcer and cellulitis. The patient is physically doing better, complaining of pain, 10/10 on the left. PHYSICAL EXAMINATION: VITAL SIGNS: Blood pressure 112/67, pulse 66, respirations 18, temperature 97.9. HEENT: NAD. CHEST: Bilaterally clear. CARDIOVASCULAR: Regular rhythm. ABDOMEN: Soft. EXTREMITIES: CCE. NEUROLOGICAL: No focal deficit. LABORATORY DATA: White counts are 13,000, hemoglobin 12. Chemistry panel, sodium 136, potassium 4.8, BUN 20, creatinine 1.4, and glucose 265. ASSESSMENT: 1. Status post debridement on the foot ulcer, rule out osteomyelitis. Podiatry is on consult. 2. Diabetes is poorly controlled. 3. Hypertension. 4. Chronic pain. PLAN: We will increase his Rock 5 to 10 mg every 4 hours. Continue sliding scale, Accu-Chek and Podiatry is on consult. His MRI of ankle reveals soft tissue wound and ulceration at the posterior inferior heel pad, soft tissue edema, and probably soft tissue air flow intensity. No organized soft tissue fluid or collection. tubercle of the calcaneus shows mild increased signal in the subcortical along the posterior margin, likely represent early osteomyelitis. So, we will continue antibiotic and continue wound care. ID is on consult. Podiatry is on consult. Arsen Lamas M.D. DR: CHARLIE JOB#: [id number] CC:
[2020-02-29 04:00] VITALS: BP 121/75
[2020-02-29] MEDS: NovoLOG Insulin Flexpen SUBQ SCH ×4 (05:06→20:52)
[2020-02-29] MEDS: Heparin 5000 units/ml inj SUBQ SCH ×3 (05:07→22:00)
--- NOTE | 2020-02-29 07:20 | NUR ---
HAND-OFF: Report given to Madeleine Fowler RN/ MICHELL Villanueva.
[2020-02-29] MEDS: HYDROcodone/Acetamin 10/325 tab ORAL PRN ×3 (07:52→21:27)
[2020-02-29 08:00] VITALS: BP 119/55
--- NOTE | 2020-02-29 08:06 | NUR ---
NURSE NOTES: Report received from MICHELL Javed. Patient awake in bed, no SOB noted, verbally responsive and able to make needs known in Maltese, bed in lowest position with alarm on and breaks engaged, denies discomfort at this time, PICC line on ROSALINA patent and intact, suprapubic catheter in place, on contact isolation for MRSA wound on left foot ulcer, will continue to monitor and proceed with plan of care. Call light within reach.
--- NOTE | 2020-02-29 10:58 | Infectious Diseases Prog Note ---
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 pseudomonas UTI s/p rx 3. diabetes mellitus 4. hypertension 5. leucocytosis improving 6. COVID 19 negative x 2 P 1. continue iv vancomycin, ceftriaxone 2. will follow up cultures Subjective ROS Limited/Unobtainable: Yes Allergies: Coded Allergies: No Known Allergies (Unverified , 02/19/20) Objective Vital Signs Last 24 Hour Vital Signs Date Time Temp Pulse Resp B/P (MAP) Pulse Ox O2 Delivery O2 Flow Rate FiO2 02/29/20 09:00 Room Air 02/29/20 08:00 99.7 81 20 119/55 (76) 95 02/29/20 04:00 98.9 71 20 121/75 (90) 97 02/29/20 00:32 99.0 02/28/20 23:48 99.0 88 20 115/69 (84) 96 02/28/20 22:02 Room Air 02/28/20 21:54 99.5 02/28/20 20:31 101.3 99 20 152/88 (109) 97 02/28/20 16:00 98.2 79 18 146/77 (100) 96 02/28/20 12:00 97.9 66 18 112/67 (82) 96 Height (Feet): 5 Height (Inches): 6.00 Weight (Pounds): 217 Respiratory/Chest: lungs clear Cardiovascular: normal rate, regular rhythm, no gallop/murmur Abdomen: soft, non tender Extremities: no edema, other - left foot in bandages Microbiology Date/Time Source Procedure Growth Status 02/28/20 08:50 Other(Specify in comment) Received 02/28/20 08:50 Wound Gram Stain - Final Resulted 02/28/20 08:50 Aerobic Culture - Preliminary Gram Negative Yves Staphylococcus Aureus Resulted 02/28/20 08:50 Wound Anaerobic Culture Pending Resulted 02/28/20 08:50 Other Gram Stain - Final Resulted 02/28/20 08:50 Aerobic Culture - Preliminary Gram Negative Bacillus 1 Staphylococcus Aureus Resulted 02/28/20 08:50 Bone Gram Stain - Final Resulted 02/28/20 08:50 Bone Aerobic Culture Pending Resulted 02/28/20 08:50 Bone Anaerobic Culture Pending Resulted Laboratory Tests Test 02/28/20 11:55 White Blood Count 12.6 K/UL (4.8-10.8) H Red Blood Count 4.39 M/UL (4.70-6.10) L Hemoglobin 12.3 G/DL (14.2-18.0) L Hematocrit 37.3 % (42.0-52.0) L Mean Corpuscular Volume 85 FL (80-99) Mean Corpuscular Hemoglobin 28.1 PG (27.0-31.0) Mean Corpuscular Hemoglobin Concent 33.1 G/DL (32.0-36.0) Red Cell Distribution Width 13.2 % (11.6-14.8) Platelet Count 588 K/UL (150-450) H Mean Platelet Volume 4.4 FL (6.5-10.1) L Neutrophils (%) (Auto) 74.9 % (45.0-75.0) Lymphocytes (%) (Auto) 14.9 % (20.0-45.0) L Monocytes (%) (Auto) 6.7 % (1.0-10.0) Eosinophils (%) (Auto) 3.1 % (0.0-3.0) H Basophils (%) (Auto) 0.4 % (0.0-2.0) Prothrombin Time 11.2 SEC (9.30-11.50) Prothromb Time International Ratio 1.0 (0.9-1.1) Activated Partial Thromboplast Time 32 SEC (23-33) Sodium Level 136 MMOL/L (136-145) Potassium Level 4.8 MMOL/L (3.5-5.1) Chloride Level 102 MMOL/L (98-107) Carbon Dioxide Level 27 MMOL/L (21-32) Anion Gap 7 mmol/L (5-15) Blood Urea Nitrogen 20 mg/dL (7-18) H Creatinine 1.4 MG/DL (0.55-1.30) H Estimat Glomerular Filtration Rate 49.5 mL/min (>60) Glucose Level 265 MG/DL (74-106) H Calcium Level 8.6 MG/DL (8.5-10.1) Total Bilirubin 0.2 MG/DL (0.2-1.0) Aspartate Amino Transf (AST/SGOT) 25 U/L (15-37) Alanine Aminotransferase (ALT/SGPT) 40 U/L (12-78) Alkaline Phosphatase 183 U/L (46-116) H Total Protein 7.3 G/DL (6.4-8.2) Albumin 2.1 G/DL (3.4-5.0) L Globulin 5.2 g/dL Albumin/Globulin Ratio 0.4 (1.0-2.7) L Current Medications Medications (Trade) Dose Ordered Sig/Parish Route PRN Reason Start Time Stop Time Status Last Admin Dose Admin Acetaminophen (Tylenol) 650 mg Q4H PRN ORAL mild pain and fever 02/19/20 23:15 03/20/20 23:14 02/28/20 21:16 Acetaminophen/ Hydrocodone Bitart ([place] 10/325) 1 tab Q4H PRN ORAL For Pain 02/28/20 16:00 03/06/20 15:59 02/29/20 07:52 Bisacodyl (Dulcolax) 10 mg DAILYPRN PRN RECTAL Constipation 02/21/20 11:30 05/21/20 11:29 02/27/20 23:54 Ceftriaxone Sodium 1 gm/ Dextrose 55 ml @ 110 mls/hr Q24H IVPB 02/27/20 12:00 03/05/20 11:59 02/28/20 12:03 Chlorhexidine Gluconate (Mulu-Hex 2%) 1 applic DAILY@2000 TOPIC 02/27/20 20:00 05/27/20 19:59 02/28/20 21:13 Dextrose (Dextrose 50%) 25 ml Q30M PRN IV Hypoglycemia 02/19/20 23:15 05/19/20 23:14 Dextrose (Dextrose 50%) 50 ml Q30M PRN IV Hypoglycemia 02/19/20 23:15 05/19/20 23:14 Finasteride (Proscar) 5 mg DAILY ORAL 02/22/20 09:00 05/22/20 08:59 02/29/20 08:33 Heparin Sodium (Porcine) (Heparin 5000 units/ml) 5,000 units EVERY 8 HOURS SUBQ 02/20/20 06:00 04/05/20 05:59 02/29/20 05:07 Insulin Aspart (NovoLOG) BEFORE MEALS AND HS SUBQ 02/20/20 06:30 05/20/20 06:29 02/29/20 05:06 Lorazepam (Ativan) 1 mg Q8H PRN ORAL For Anxiety 02/24/20 19:30 03/02/20 19:29 02/27/20 12:15 Magnesium Hydroxide (Mom) 30 ml BIDPRN PRN ORAL Constipation 02/21/20 11:30 03/22/20 11:29 02/28/20 21:13 Vancomycin HCl (Vanco rx to dose) 1 ea DAILY PRN MISC Per rx protocol 02/19/20 23:15 03/20/20 23:14 Vancomycin HCl 1 gm/Sodium Chloride 275 ml @ 183.708 mls/hr Q24H IVPB 02/26/20 14:00 03/02/20 13:59 02/28/20 14:26 Aneudy Mclaughlin MD February 29, 2020 10:58"
[2020-02-29 12:00] VITALS: BP 120/60
--- NOTE | 2020-02-29 12:08 | Urology Progress Note ---
Assessment/Plan Assessment/Plan: 1. Urinary retention history with chronic suprapubic tube. 2. BPH history. 3. Probable neurogenic bladder. 4. Hematuria. 5. Pyuria, rule out infection and colonization. 6. Proteinuria. 7. Renal insufficiency, possibly acute on chronic. monitor clinically maintain SPT, last exchanged 02/19 hand irrigated and do PRN monitor renal fxn abx as ordered cysto later consider renal imaging study proscar added f/u on cx's Subjective Allergies: Coded Allergies: No Known Allergies (Unverified , 02/19/20) Subjective all noted, feels fair, s/p foot I+D Objective Last 24 Hour Vital Signs Date Time Temp Pulse Resp B/P (MAP) Pulse Ox O2 Delivery O2 Flow Rate FiO2 02/29/20 09:00 Room Air 02/29/20 08:00 99.7 81 20 119/55 (76) 95 02/29/20 04:00 98.9 71 20 121/75 (90) 97 02/29/20 00:32 99.0 02/28/20 23:48 99.0 88 20 115/69 (84) 96 02/28/20 22:02 Room Air 02/28/20 21:54 99.5 02/28/20 20:31 101.3 99 20 152/88 (109) 97 02/28/20 16:00 98.2 79 18 146/77 (100) 96 Intake and Output 02/28/20 02/29/20 19:00 07:00 Intake Total 940 ml Output Total 1120 ml 200 ml Balance -180 ml -200 ml Intake Oral 240 ml IV Total 700 ml Output Urine Total 1100 ml 200 ml Estimated Blood Loss 20 ml # Voids 2 Microbiology Date/Time Source Procedure Growth Status 02/19/20 19:00 Blood Blood Culture - Final NO GROWTH AFTER 5 DAYS Complete 02/28/20 08:50 Other(Specify in comment) Received 02/22/20 11:20 Nasopharynx Coronavirus COVID-19 PCR (EVETTE) - Final Complete 02/19/20 20:08 Urine,Clean Catch Urine Culture - Final Pseudomonas Aeruginosa Complete 02/28/20 08:50 Bone Gram Stain - Final Resulted 02/28/20 08:50 Bone Aerobic Culture Pending Resulted 02/28/20 08:50 Bone Anaerobic Culture Pending Resulted Current Medications Medications (Trade) Dose Ordered Sig/Parish Route PRN Reason Start Time Stop Time Status Last Admin Dose Admin Acetaminophen (Tylenol) 650 mg Q4H PRN ORAL mild pain and fever 02/19/20 23:15 03/20/20 23:14 02/28/20 21:16 Acetaminophen/ Hydrocodone Bitart ([place] 10325) 1 tab Q4H PRN ORAL For Pain 02/28/20 16:00 03/06/20 15:59 02/29/20 12:02 Bisacodyl (Dulcolax) 10 mg DAILYPRN PRN RECTAL Constipation 02/21/20 11:30 05/21/20 11:29 02/27/20 23:54 Ceftriaxone Sodium 1 gm/ Dextrose 55 ml @ 110 mls/hr Q24H IVPB 02/27/20 12:00 03/05/20 11:59 02/28/20 12:03 Chlorhexidine Gluconate (Mulu-Hex 2%) 1 applic DAILY@2000 TOPIC 02/27/20 20:00 05/27/20 19:59 02/28/20 21:13 Dextrose (Dextrose 50%) 25 ml Q30M PRN IV Hypoglycemia 02/19/20 23:15 05/19/20 23:14 Dextrose (Dextrose 50%) 50 ml Q30M PRN IV Hypoglycemia 02/19/20 23:15 05/19/20 23:14 Finasteride (Proscar) 5 mg DAILY ORAL 02/22/20 09:00 05/22/20 08:59 02/29/20 08:33 Heparin Sodium (Porcine) (Heparin 5000 units/ml) 5,000 units EVERY 8 HOURS SUBQ 02/20/20 06:00 04/05/20 05:59 02/29/20 05:07 Insulin Aspart (NovoLOG) BEFORE MEALS AND HS SUBQ 02/20/20 06:30 05/20/20 06:29 02/29/20 11:36 Lorazepam (Ativan) 1 mg Q8H PRN ORAL For Anxiety 02/24/20 19:30 03/02/20 19:29 02/27/20 12:15 Magnesium Hydroxide (Mom) 30 ml BIDPRN PRN ORAL Constipation 02/21/20 11:30 03/22/20 11:29 02/28/20 21:13 Vancomycin HCl (Vanco rx to dose) 1 ea DAILY PRN MISC Per rx protocol 02/19/20 23:15 03/20/20 23:14 Vancomycin HCl 1 gm/Sodium Chloride 275 ml @ 183.708 mls/hr Q24H IVPB 02/26/20 14:00 03/02/20 13:59 02/28/20 14:26 Height (Feet): 5 Height (Inches): 6.00 Weight (Pounds): 217 Objective exam stable SPT in place urine yellow/aris with debris Juan Pineda MD February 29, 2020 12:07
[2020-02-29] MEDS: cefTRIAXone 1 GM in D5W 55 ML IVPB SCH (12:09)
--- NOTE | 2020-02-29 15:27 | NUR ---
CASE MANAGEMENT:REVIEW SI;NON-HEALING FOOT WOUND S/P I&D/DEBRIDEMENT W/BIOPSY. 99.7 88 20 121/75 95% ON RA WBC 12.6 BUN 20 CR 1.4 BG 265 ALB 2.1 IS;VANCOMYCIN IV Q24 HRS ROCEPHIN IV Q24 HRS PROSCAR PO QD INSULIN NOVOLOG AC MEALS & HS MED SURG STATUS DCP;FROM [facility]
[2020-02-29 16:00] VITALS: BP 132/72
--- NOTE | 2020-02-29 16:10 | 48 Hour Post Anesthesia Eval ---
Post Anesthesia Evaluation Procedure: I&D pf L foot wound Date of Evaluation: February 29, 2020 Time of Evaluation: 11:10 Blood Pressure Systolic: 124 0: 76 Pulse Rate: 68 Respiratory Rate: 20 Temperature (Fahrenheit): 98.7 O2 Sat by Pulse Oximetry: 98 Airway: patent Nausea: No Vomiting: No Pain Intensity: 2 Hydration Status: adequate Cardiopulmonary Status: stable Mental Status/LOC: patient returned to baseline Follow-up Care/Observations: n/a Post-Anesthesia Complications: none Follow-up care needed: N/A Cecilio Thompson MD February 29, 2020 16:10
[2020-02-29] MEDS: Vancomycin 1.25gm/NS Premix IVPB SCH (16:53)
--- NOTE | 2020-02-29 18:53 | Podiatric Progress Note ---
Assessment/Plan Patient Davy Smith is a 75 year old male who was admitted on February 19, 2020 at 18:57 with Assessment/Plan Patient Assessment/Plan A: - S/p L foot I&D with bone biopsy, bone culture, and deep wound culture. - UTI - DM - HTN P: - Pt seen and evaluated. - Discuss findings with patient. - WBC trending down. - surgical Site stable. - Arterial U/S B/L L/E ordered, R/O PVD. If Vascular disease noted on study, recommend vascular follow up. - Cont daily betadine dressing with iodoform packing to L heel. Patient will require home health upon hospital discharge. - Cont IV ABx outpt ABx per OR Cultures and biopsy. ID recs. - Weight bearing per PT eval. - No further surgical intervention required by podiatry. - Please have patient F/U 1 week after hospital D/C. - Podiatry will cont to monitor. Subjective ROS Limited/Unobtainable: Yes - Denies any constitutional symptoms. Day of Surgery: 02-28-2020 Reason for consult S/p L foot I&D with bone culture, bone biopsy and deep wound culture. Procedure Performed Left foot Incision and Drainage and removal of all non-viable tissue, bone biopsy, bone culture and deep wound culture. Constitutional: no symptoms Allergies: Coded Allergies: No Known Allergies (Unverified , 02/19/20) All Systems: reviewed and negative except above Subjective Pt seen bedside S/p L foot I&D with bone culture, bone biopsy and deep wound culture. Relates minimal pain to LLE. Denies any recent constitutional symptoms. Objective Exam Last 24 Hour Vital Signs Date Time Temp Pulse Resp B/P (MAP) Pulse Ox O2 Delivery O2 Flow Rate FiO2 02/29/20 16:10 68 20 98 02/29/20 16:00 97.7 86 20 132/72 (92) 97 02/29/20 12:57 99.7 02/29/20 12:00 97.7 75 18 120/60 (80) 98 02/29/20 09:00 Room Air 02/29/20 08:00 99.7 81 20 119/55 (76) 95 02/29/20 04:00 98.9 71 20 121/75 (90) 97 02/28/20 23:48 99.0 88 20 115/69 (84) 96 02/28/20 22:02 Room Air 02/28/20 21:54 99.5 02/28/20 20:31 101.3 99 20 152/88 (109) 97 Laboratory Tests Test 02/29/20 13:00 Vancomycin Level Trough 13.0 ug/mL (5.0-12.0) H Microbiology Date/Time Source Procedure Growth Status 02/19/20 19:00 Blood Blood Culture - Final NO GROWTH AFTER 5 DAYS Complete 02/28/20 08:50 Other(Specify in comment) Received 02/22/20 11:20 Nasopharynx Coronavirus COVID-19 PCR (EVETTE) - Final Complete 02/19/20 20:08 Urine,Clean Catch Urine Culture - Final Pseudomonas Aeruginosa Complete 02/28/20 08:50 Bone Gram Stain - Final Resulted 02/28/20 08:50 Bone Aerobic Culture Pending Resulted 02/28/20 08:50 Bone Anaerobic Culture Pending Resulted Exam Narrative Surgical Site: L foot surgical dressing removed at bedside. Negative purulent drainage is noted. Minimal active bleeding, edema and erythema is noted. Demetrio Boyer DPM February 29, 2020 18:53
--- NOTE | 2020-02-29 19:25 | NUR ---
HAND-OFF: Report given to MICHELL Chowdary.
--- NOTE | 2020-02-29 19:44 | NUR ---
NURSE NOTES: Received patient in bed, awake, alert, oriented x3/4, Malay speaking,on room air, regular diet, tolerating well, patient has suprapubic catheter, secured, draining well, PICC line is clean dry and intact. Call light is within reach, bed is lowered, locked, alarm is on, will continue to monitor for comfort and safety.
[2020-02-29 20:00] VITALS: BP 128/71
[2020-02-29] MEDS: Dyna-Hex 2% Top Sol 2oz TOPIC SCH (20:43)
[2020-02-29] MEDS: Milk of Magnesia 30ml Ud ORAL PRN (20:43)
[2020-03-01] VITALS: BP 127/75
[2020-03-01] MEDS: HYDROcodone/Acetamin 10/325 tab ORAL PRN ×3 (02:11→20:04)
[2020-03-01 04:00] VITALS: BP 127/74
[2020-03-01] MEDS: Heparin 5000 units/ml inj SUBQ SCH ×3 (06:04→22:16)
[2020-03-01] MEDS: NovoLOG Insulin Flexpen SUBQ SCH ×4 (06:05→22:16)
--- NOTE | 2020-03-01 07:36 | NUR ---
HAND-OFF: Report given to Uli GALARZA.
--- NOTE | 2020-03-01 07:56 | NUR ---
Made AM rounds, pt is eating breakfast in bed; HOB elevated. respiration is even and unlabored. Denies any pain and discomfort. no acute distress noted at this time. ROSALINA PICC line is inplace, bed locked for safety. call light is within reach.
[2020-03-01 08:00] VITALS: BP 126/75
--- NOTE | 2020-03-01 09:39 | Urology Progress Note ---
Assessment/Plan Assessment/Plan: 1. Urinary retention history with chronic suprapubic tube. 2. BPH history. 3. Probable neurogenic bladder. 4. Hematuria. 5. Pyuria, rule out infection and colonization. 6. Proteinuria. 7. Renal insufficiency, possibly acute on chronic. monitor clinically maintain SPT, last exchanged 02/19 hand irrigated and do PRN monitor renal fxn abx as ordered cysto later consider renal imaging study proscar added f/u on cx's Subjective Allergies: Coded Allergies: No Known Allergies (Unverified , 02/19/20) Subjective all noted, feels fair, s/p foot I+D Objective Last 24 Hour Vital Signs Date Time Temp Pulse Resp B/P (MAP) Pulse Ox O2 Delivery O2 Flow Rate FiO2 03/01/20 08:00 96.8 67 20 126/75 (92) 98 03/01/20 04:00 98.7 74 20 127/74 (91) 98 03/01/20 02:41 99.0 03/01/20 00:42 99.0 03/01/20 00:00 98.9 88 19 127/75 (92) 95 02/29/20 21:45 Room Air 02/29/20 20:00 99.0 78 20 128/71 (90) 98 02/29/20 16:10 68 20 98 02/29/20 16:00 97.7 86 20 132/72 (92) 97 02/29/20 12:00 97.7 75 18 120/60 (80) 98 Intake and Output 02/29/20 03/01/20 19:00 07:00 Intake Total 783.333 ml Output Total 900 ml Balance -116.667 ml Intake Oral 600 ml IV Total 183.333 ml Output Urine Total 900 ml Microbiology Date/Time Source Procedure Growth Status 02/19/20 19:00 Blood Blood Culture - Final NO GROWTH AFTER 5 DAYS Complete 02/28/20 08:50 Other(Specify in comment) Received 02/22/20 11:20 Nasopharynx Coronavirus COVID-19 PCR (EVETTE) - Final Complete 02/19/20 20:08 Urine,Clean Catch Urine Culture - Final Pseudomonas Aeruginosa Complete 02/28/20 08:50 Bone Gram Stain - Final Resulted 02/28/20 08:50 Bone Aerobic Culture Pending Resulted 02/28/20 08:50 Bone Anaerobic Culture Pending Resulted Current Medications Medications (Trade) Dose Ordered Sig/Parish Route PRN Reason Start Time Stop Time Status Last Admin Dose Admin Acetaminophen (Tylenol) 650 mg Q4H PRN ORAL mild pain and fever 02/19/20 23:15 03/20/20 23:14 02/29/20 23:57 Acetaminophen/ Hydrocodone Bitart ([place] 10/325) 1 tab Q4H PRN ORAL For Pain 02/28/20 16:00 03/06/20 15:59 03/01/20 02:11 Bisacodyl (Dulcolax) 10 mg DAILYPRN PRN RECTAL Constipation 02/21/20 11:30 05/21/20 11:29 02/27/20 23:54 Ceftriaxone Sodium 1 gm/ Dextrose 55 ml @ 110 mls/hr Q24H IVPB 02/27/20 12:00 03/05/20 11:59 02/29/20 12:09 Chlorhexidine Gluconate (Mulu-Hex 2%) 1 applic DAILY@2000 TOPIC 02/27/20 20:00 05/27/20 19:59 02/29/20 20:43 Dextrose (Dextrose 50%) 25 ml Q30M PRN IV Hypoglycemia 02/19/20 23:15 05/19/20 23:14 Dextrose (Dextrose 50%) 50 ml Q30M PRN IV Hypoglycemia 02/19/20 23:15 05/19/20 23:14 Finasteride (Proscar) 5 mg DAILY ORAL 02/22/20 09:00 05/22/20 08:59 03/01/20 08:25 Heparin Sodium (Porcine) (Heparin 5000 units/ml) 5,000 units EVERY 8 HOURS SUBQ 02/20/20 06:00 04/05/20 05:59 03/01/20 06:04 Insulin Aspart (NovoLOG) BEFORE MEALS AND HS SUBQ 02/20/20 06:30 05/20/20 06:29 03/01/20 06:05 Lorazepam (Ativan) 1 mg Q8H PRN ORAL For Anxiety 02/24/20 19:30 03/02/20 19:29 02/27/20 12:15 Magnesium Hydroxide (Mom) 30 ml BIDPRN PRN ORAL Constipation 02/21/20 11:30 03/22/20 11:29 02/29/20 20:43 Vancomycin HCl (Vanco rx to dose) 1 ea DAILY PRN MISC Per rx protocol 02/19/20 23:15 03/20/20 23:14 Vancomycin/Sodium Chloride 275 ml @ 183.333 mls/hr Q24H IVPB 02/29/20 14:00 03/05/20 13:59 02/29/20 16:53 Laboratory Tests 02/29/20 13:00: Vancomycin Level Trough 13.0H Height (Feet): 5 Height (Inches): 6.00 Weight (Pounds): 217 Objective exam stable SPT in place urine yellow/aris with debris Juan Pineda MD March 01, 2020 09:39
[2020-03-01 12:00] VITALS: BP 128/73
[2020-03-01] MEDS: cefTRIAXone 1 GM in D5W 55 ML IVPB SCH (12:29)
[2020-03-01] MEDS: Vancomycin 1.25gm/NS Premix IVPB SCH (14:21)
[2020-03-01 16:00] VITALS: BP 115/65
--- NOTE | 2020-03-01 19:34 | NUR ---
HAND-OFF: Report given to Viktor.
--- NOTE | 2020-03-01 19:35 | NUR ---
NURSE NOTES: Received patient on bed, awake and verbally responsive. room air. no sob. with picc line in left upper arm. with suprapubic catheter. denies any pain or discomfort. with dry and intact dressing on the left heel. per neris, they changed the dressing today. per morning nurse (neris) "the patient has a discharge planning to [facility] but there is no bed placement yet". reiterated to call and ask for assistance. call light and light button within easy reach. will continue plan of care.
[2020-03-01 20:00] VITALS: BP 129/76
[2020-03-01] MEDS: Dyna-Hex 2% Top Sol 2oz TOPIC SCH (20:04)
--- NOTE | 2020-03-01 22:15 | Procedure Note ---
SUBJECTIVE: This is an elderly male, currently in the bed, comfortable, had a surgery on the foot ulcer and improving. OBJECTIVE: VITAL SIGNS: Stable. CHEST: Bilaterally clear. CARDIOVASCULAR: Regular rhythm. No gallop. No murmur. ABDOMEN: Soft. EXTREMITIES: CCE. ASSESSMENT AND PLAN: 1. Cellulitis. 2. Nonhealing foot ulcer. 3. Hypertension. 4. Diabetes. 5. Chronic pain. We will currently continue antibiotic. Continue wound care. Sliding scale and Accu-Chek. Arsen Lamas M.D. DR: GREGORY JOB#: [id number] CC:
[2020-03-02] VITALS: BP 122/70
[2020-03-02] MEDS: HYDROcodone/Acetamin 10/325 tab ORAL PRN ×3 (03:03→21:07)
[2020-03-02 04:00] VITALS: BP 120/70
[2020-03-02] MEDS: Heparin 5000 units/ml inj SUBQ SCH ×3 (05:51→21:59)
[2020-03-02] MEDS: NovoLOG Insulin Flexpen SUBQ SCH ×4 (05:54→21:45)
--- NOTE | 2020-03-02 07:15 | NUR ---
HAND-OFF: Report given to isdra khalil.
--- NOTE | 2020-03-02 07:48 | NUR ---
NURSE NOTES: Patient awake, alert x4; on room air, no sign of distress and shortness of breath; no sing of chest pain; PICC line on Left Upper Arm, dry and intact; Supra-Pubic catheter in place, collects yellow urine; Left Heel dressing dry and intact; side rails up x2, breaks engaged, bed at lowest position; call light within reach; will keep monitoring.
[2020-03-02 08:00] VITALS: BP 124/72
--- NOTE | 2020-03-02 09:56 | Urology Progress Note ---
Assessment/Plan Assessment/Plan: 1. Urinary retention history with chronic suprapubic tube. 2. BPH history. 3. Probable neurogenic bladder. 4. Hematuria. 5. Pyuria, rule out infection and colonization. 6. Proteinuria. 7. Renal insufficiency, possibly acute on chronic. monitor clinically maintain SPT, last exchanged 02/19 hand irrigated and do PRN monitor renal fxn abx as ordered cysto later consider renal imaging study proscar added f/u on cx's Subjective Allergies: Coded Allergies: No Known Allergies (Unverified , 02/19/20) Subjective all noted, feels fair, s/p foot I+D Objective Last 24 Hour Vital Signs Date Time Temp Pulse Resp B/P (MAP) Pulse Ox O2 Delivery O2 Flow Rate FiO2 03/02/20 08:00 98.0 75 18 124/72 (89) 97 03/02/20 04:00 98.0 79 20 120/70 (87) 96 03/02/20 03:33 98.8 03/02/20 00:00 98.8 82 20 122/70 (87) 97 03/01/20 21:00 Room Air 03/01/20 20:00 99.8 74 20 129/76 (93) 95 03/01/20 16:00 99.0 76 20 115/65 (82) 98 03/01/20 12:00 99.1 75 18 128/73 (91) 97 Intake and Output 03/01/20 03/02/20 18:59 06:59 Intake Total 400 ml 450 ml Output Total 1800 ml 1000 ml Balance -1400 ml -550 ml Intake Oral 400 ml 450 ml Output Urine Total 1800 ml 1000 ml Microbiology Date/Time Source Procedure Growth Status 02/19/20 19:00 Blood Blood Culture - Final NO GROWTH AFTER 5 DAYS Complete 02/28/20 08:50 Other(Specify in comment) Received 02/22/20 11:20 Nasopharynx Coronavirus COVID-19 PCR (EVETTE) - Final Complete 02/19/20 20:08 Urine,Clean Catch Urine Culture - Final Pseudomonas Aeruginosa Complete 02/28/20 08:50 Bone Gram Stain - Final Resulted 02/28/20 08:50 Aerobic Culture - Preliminary Gram Negative Bacillus 1 Staphylococcus Aureus Resulted 02/28/20 08:50 Bone Anaerobic Culture Pending Resulted Current Medications Medications (Trade) Dose Ordered Sig/Parish Route PRN Reason Start Time Stop Time Status Last Admin Dose Admin Acetaminophen (Tylenol) 650 mg Q4H PRN ORAL mild pain and fever 02/19/20 23:15 03/20/20 23:14 02/29/20 23:57 Acetaminophen/ Hydrocodone Bitart ([place] 10/325) 1 tab Q4H PRN ORAL For Pain 02/28/20 16:00 03/06/20 15:59 03/02/20 08:40 Bisacodyl (Dulcolax) 10 mg DAILYPRN PRN RECTAL Constipation 02/21/20 11:30 05/21/20 11:29 02/27/20 23:54 Ceftriaxone Sodium 1 gm/ Dextrose 55 ml @ 110 mls/hr Q24H IVPB 02/27/20 12:00 03/05/20 11:59 03/01/20 12:29 Chlorhexidine Gluconate (Mulu-Hex 2%) 1 applic DAILY@2000 TOPIC 02/27/20 20:00 05/27/20 19:59 03/01/20 20:04 Dextrose (Dextrose 50%) 25 ml Q30M PRN IV Hypoglycemia 02/19/20 23:15 05/19/20 23:14 Dextrose (Dextrose 50%) 50 ml Q30M PRN IV Hypoglycemia 02/19/20 23:15 05/19/20 23:14 Finasteride (Proscar) 5 mg DAILY ORAL 02/22/20 09:00 05/22/20 08:59 03/02/20 08:39 Heparin Sodium (Porcine) (Heparin 5000 units/ml) 5,000 units EVERY 8 HOURS SUBQ 02/20/20 06:00 04/05/20 05:59 03/01/20 22:16 Insulin Aspart (NovoLOG) BEFORE MEALS AND HS SUBQ 02/20/20 06:30 05/20/20 06:29 03/02/20 05:54 Lorazepam (Ativan) 1 mg Q8H PRN ORAL For Anxiety 02/24/20 19:30 03/02/20 19:29 02/27/20 12:15 Magnesium Hydroxide (Mom) 30 ml BIDPRN PRN ORAL Constipation 02/21/20 11:30 03/22/20 11:29 02/29/20 20:43 Vancomycin HCl (Vanco rx to dose) 1 ea DAILY PRN MISC Per rx protocol 02/19/20 23:15 03/20/20 23:14 Vancomycin/Sodium Chloride 275 ml @ 183.333 mls/hr Q24H IVPB 02/29/20 14:00 03/05/20 13:59 03/01/20 14:21 Height (Feet): 5 Height (Inches): 6.00 Weight (Pounds): 217 Objective exam stable SPT in place urine yellow/aris with debris Juan Pineda MD March 02, 2020 09:56
[2020-03-02 12:00] VITALS: BP 130/79
[2020-03-02] MEDS: cefTRIAXone 1 GM in D5W 55 ML IVPB SCH (12:02)
[2020-03-02] MEDS: Vancomycin 1.25gm/NS Premix IVPB SCH (13:07)
--- NOTE | 2020-03-02 14:10 | NUR ---
NURSE NOTES: Wound care provided; patient tolerated well;
--- NOTE | 2020-03-02 14:35 | Infectious Diseases Prog Note ---
Assessment/Plan Assessment/Plan A; 1. Left foot ulcer infection , osteomyelitis & abscess Wound culture: MRSA, Enterococcus & Proteus 2. Pneumonia COVID19 X 2: negative 3. Diabetes. 4. Hypertension. 5. Sepsis 6. UTI treated PLAN: 1. Continue IV vancomycin and Ceftriaxone Subjective ROS Limited/Unobtainable: No Respiratory: Reports: no symptoms Gastrointestinal/Abdominal: Reports: no symptoms Genitourinary: Reports: no symptoms Musculoskeletal: Reports: pain, other - left heel Allergies: Coded Allergies: No Known Allergies (Unverified , 02/19/20) Objective Vital Signs Last 24 Hour Vital Signs Date Time Temp Pulse Resp B/P (MAP) Pulse Ox O2 Delivery O2 Flow Rate FiO2 03/02/20 12:00 98.0 82 19 130/79 (96) 98 03/02/20 09:10 98.0 03/02/20 09:00 Room Air 03/02/20 08:00 98.0 75 18 124/72 (89) 97 03/02/20 04:00 98.0 79 20 120/70 (87) 96 03/02/20 00:00 98.8 82 20 122/70 (87) 97 03/01/20 21:00 Room Air 03/01/20 20:00 99.8 74 20 129/76 (93) 95 03/01/20 16:00 99.0 76 20 115/65 (82) 98 Height (Feet): 5 Height (Inches): 6.00 Weight (Pounds): 217 General Appearance: no acute distress HEENT: mucous membranes moist Respiratory/Chest: lungs clear Cardiovascular: normal rate, other - left arm PICC line Abdomen: soft, non tender Extremities: no edema, other - r front foot amputation Skin: ulcers, other - left heel surgical dressing Current Medications Medications (Trade) Dose Ordered Sig/Parish Route PRN Reason Start Time Stop Time Status Last Admin Dose Admin Acetaminophen (Tylenol) 650 mg Q4H PRN ORAL mild pain and fever 02/19/20 23:15 03/20/20 23:14 02/29/20 23:57 Acetaminophen/ Hydrocodone Bitart ([place] 10/325) 1 tab Q4H PRN ORAL For Pain 02/28/20 16:00 03/06/20 15:59 03/02/20 08:40 Bisacodyl (Dulcolax) 10 mg DAILYPRN PRN RECTAL Constipation 02/21/20 11:30 05/21/20 11:29 02/27/20 23:54 Ceftriaxone Sodium 1 gm/ Dextrose 55 ml @ 110 mls/hr Q24H IVPB 02/27/20 12:00 03/05/20 11:59 03/02/20 12:02 Chlorhexidine Gluconate (Mulu-Hex 2%) 1 applic DAILY@2000 TOPIC 02/27/20 20:00 05/27/20 19:59 03/01/20 20:04 Dextrose (Dextrose 50%) 25 ml Q30M PRN IV Hypoglycemia 02/19/20 23:15 05/19/20 23:14 Dextrose (Dextrose 50%) 50 ml Q30M PRN IV Hypoglycemia 02/19/20 23:15 05/19/20 23:14 Finasteride (Proscar) 5 mg DAILY ORAL 02/22/20 09:00 05/22/20 08:59 03/02/20 08:39 Heparin Sodium (Porcine) (Heparin 5000 units/ml) 5,000 units EVERY 8 HOURS SUBQ 02/20/20 06:00 04/05/20 05:59 03/02/20 13:07 Insulin Aspart (NovoLOG) BEFORE MEALS AND HS SUBQ 02/20/20 06:30 05/20/20 06:29 03/02/20 12:00 Lorazepam (Ativan) 1 mg Q8H PRN ORAL For Anxiety 02/24/20 19:30 03/02/20 19:29 02/27/20 12:15 Magnesium Hydroxide (Mom) 30 ml BIDPRN PRN ORAL Constipation 02/21/20 11:30 03/22/20 11:29 02/29/20 20:43 Vancomycin HCl (Vanco rx to dose) 1 ea DAILY PRN MISC Per rx protocol 02/19/20 23:15 03/20/20 23:14 Vancomycin/Sodium Chloride 275 ml @ 183.333 mls/hr Q24H IVPB 02/29/20 14:00 03/05/20 13:59 03/02/20 13:07 Hill Rodriguez MD March 02, 2020 14:35
[2020-03-02 16:00] VITALS: BP 121/76
--- NOTE | 2020-03-02 19:05 | NUR ---
NURSE NOTES: received patient on bed,awake and verbally responsive. no sob. not in any from of respiratory distress. denies any pain or discomfort. noted with PICC line on the ROSALINA and suprapubic catheter draining well. per messy, she changed the dressing on the left foot, patient tolerated well. reiterated to call or ask for help. call light and light button within easy reach. bed locked and in lowest position. call light and light button within easy reach. will continue plan of care.
--- NOTE | 2020-03-02 19:13 | NUR ---
HAND-OFF: Report given to MICHELL Hoang.
[2020-03-02 20:00] VITALS: BP 137/80
[2020-03-02] MEDS: Dyna-Hex 2% Top Sol 2oz TOPIC SCH (21:06)
--- NOTE | 2020-03-02 22:16 | NUR ---
NURSE NOTES: patient refused heparin. explained risks and benefits, patient still refused to take medicine.
--- NOTE | 2020-03-02 23:30 | Progress Note ---
DATE: 03/02/2020 SUBJECTIVE: This is an elderly male whose results came, microbiology and bone scan. Blood cultures showing MRSA wound cultures. The patient is currently in bed, comfortable. OBJECTIVE: VITAL SIGNS: Blood pressure is 130/79, pulse 82. No fever. CHEST: Bilaterally clear. CARDIOVASCULAR: Regular rhythm. ABDOMEN: Soft. EXTREMITIES: CCE. ASSESSMENT AND PLAN: 1. MRSA on the bone. 2. Osteomyelitis. 3. Nonhealing ulcer. 4. Diabetes. Continue antibiotics. 5. ID and Podiatry is on consult. Arsen Lamas M.D. DR: NATASHA JOB#: [id number] CC:
[2020-03-03] VITALS: BP 110/66
[2020-03-03 04:00] VITALS: BP 138/69
[2020-03-03] MEDS: NovoLOG Insulin Flexpen SUBQ SCH ×4 (05:58→21:18)
[2020-03-03] MEDS: Heparin 5000 units/ml inj SUBQ SCH ×3 (05:58→21:17)
--- NOTE | 2020-03-03 06:59 | NUR ---
HAND-OFF: Report given to sidra khalil.
--- NOTE | 2020-03-03 07:18 | NUR ---
NURSE NOTES: Patient alert x4; on room air, no sing of distress and shortness of breath; no sing of chest pain; PICC on Left Upper Arm, dressing dry and intact, flushes well; Supra-pubic catheter in place, collects yellow urine; dressing on Left-Heel dressing dry and intact; side rails up x3, breaks engaged, bed at lowest position; call light within reach; will keep monitoring.
[2020-03-03 08:00] VITALS: BP 124/65
--- NOTE | 2020-03-03 09:39 | Urology Progress Note ---
Assessment/Plan Assessment/Plan: 1. Urinary retention history with chronic suprapubic tube. 2. BPH history. 3. Probable neurogenic bladder. 4. Hematuria. 5. Pyuria, rule out infection and colonization. 6. Proteinuria. 7. Renal insufficiency, possibly acute on chronic. monitor clinically maintain SPT, last exchanged 02/19 hand irrigated and do PRN monitor renal fxn abx as ordered cysto later consider renal imaging study proscar added Subjective Allergies: Coded Allergies: No Known Allergies (Unverified , 02/19/20) Subjective all noted, feels fair, s/p foot I+D Objective Last 24 Hour Vital Signs Date Time Temp Pulse Resp B/P (MAP) Pulse Ox O2 Delivery O2 Flow Rate FiO2 03/03/20 09:00 Room Air 03/03/20 08:00 98.0 78 17 124/65 (84) 96 03/03/20 04:00 98.2 74 17 138/69 (92) 96 03/03/20 00:00 98.0 69 20 110/66 (81) 97 03/02/20 21:37 97.9 03/02/20 21:00 Room Air 03/02/20 20:00 99.7 81 20 137/80 (99) 98 03/02/20 16:00 97.9 80 17 121/76 (91) 95 03/02/20 12:00 98.0 82 19 130/79 (96) 98 Intake and Output 03/02/20 03/03/20 19:00 07:00 Intake Total 1676.666 ml 700 ml Output Total 1000 ml 650 ml Balance 676.666 ml 50 ml Intake Oral 700 ml IV Total 476.666 ml Other 1200 ml Output Urine Total 1000 ml 650 ml Microbiology Date/Time Source Procedure Growth Status 02/19/20 19:00 Blood Blood Culture - Final NO GROWTH AFTER 5 DAYS Complete 02/28/20 08:50 Other(Specify in comment) Anaerobic Culture - Final NO ANAEROBES ISOLATED Complete 02/22/20 11:20 Nasopharynx Coronavirus COVID-19 PCR (EVETTE) - Final Complete 02/19/20 20:08 Urine,Clean Catch Urine Culture - Final Pseudomonas Aeruginosa Complete 02/28/20 08:50 Bone Gram Stain - Final Complete 02/28/20 08:50 Aerobic Culture - Final Staphylococcus Aureus - Mrsa Proteus Mirabilis Complete 02/28/20 08:50 Bone Anaerobic Culture - Final NO ANAEROBES ISOLATED Complete Current Medications Medications (Trade) Dose Ordered Sig/Parish Route PRN Reason Start Time Stop Time Status Last Admin Dose Admin Acetaminophen (Tylenol) 650 mg Q4H PRN ORAL mild pain and fever 02/19/20 23:15 03/20/20 23:14 02/29/20 23:57 Acetaminophen/ Hydrocodone Bitart ([place] 10/325) 1 tab Q4H PRN ORAL For Pain 02/28/20 16:00 03/06/20 15:59 03/02/20 21:07 Bisacodyl (Dulcolax) 10 mg DAILYPRN PRN RECTAL Constipation 02/21/20 11:30 05/21/20 11:29 02/27/20 23:54 Ceftriaxone Sodium 1 gm/ Dextrose 55 ml @ 110 mls/hr Q24H IVPB 02/27/20 12:00 03/05/20 11:59 03/02/20 12:02 Chlorhexidine Gluconate (Mulu-Hex 2%) 1 applic DAILY@2000 TOPIC 02/27/20 20:00 05/27/20 19:59 03/02/20 21:06 Dextrose (Dextrose 50%) 25 ml Q30M PRN IV Hypoglycemia 02/19/20 23:15 05/19/20 23:14 Dextrose (Dextrose 50%) 50 ml Q30M PRN IV Hypoglycemia 02/19/20 23:15 05/19/20 23:14 Finasteride (Proscar) 5 mg DAILY ORAL 02/22/20 09:00 05/22/20 08:59 03/03/20 08:36 Heparin Sodium (Porcine) (Heparin 5000 units/ml) 5,000 units EVERY 8 HOURS SUBQ 02/20/20 06:00 04/05/20 05:59 03/03/20 05:58 Insulin Aspart (NovoLOG) BEFORE MEALS AND HS SUBQ 02/20/20 06:30 05/20/20 06:29 03/03/20 05:58 Magnesium Hydroxide (Mom) 30 ml BIDPRN PRN ORAL Constipation 02/21/20 11:30 03/22/20 11:29 02/29/20 20:43 Vancomycin HCl (Vanco rx to dose) 1 ea DAILY PRN MISC Per rx protocol 5/12/20 23:15 03/20/20 23:14 Vancomycin/Sodium Chloride 275 ml @ 183.333 mls/hr Q24H IVPB 02/29/20 14:00 03/05/20 13:59 03/02/20 13:07 Height (Feet): 5 Height (Inches): 6.00 Weight (Pounds): 217 Objective exam stable SPT in place urine yellow/aris with debris Juan Pineda MD March 03, 2020 09:39
--- NOTE | 2020-03-03 09:52 | Infectious Diseases Prog Note ---
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 pseudomonas UTI s/p rx 3. diabetes mellitus 4. hypertension 5. leucocytosis improving 6. COVID 19 negative x 2 P 1. continue iv vancomycin, ceftriaxone 37 more days 2. cbc, bmp, lft, vancomycin level q weekly 3. will follow up cultures Subjective ROS Limited/Unobtainable: Yes Allergies: Coded Allergies: No Known Allergies (Unverified , 02/19/20) Objective Vital Signs Last 24 Hour Vital Signs Date Time Temp Pulse Resp B/P (MAP) Pulse Ox O2 Delivery O2 Flow Rate FiO2 03/03/20 09:00 Room Air 03/03/20 08:00 98.0 78 17 124/65 (84) 96 03/03/20 04:00 98.2 74 17 138/69 (92) 96 03/03/20 00:00 98.0 69 20 110/66 (81) 97 03/02/20 21:37 97.9 03/02/20 21:00 Room Air 03/02/20 20:00 99.7 81 20 137/80 (99) 98 03/02/20 16:00 97.9 80 17 121/76 (91) 95 03/02/20 12:00 98.0 82 19 130/79 (96) 98 Height (Feet): 5 Height (Inches): 6.00 Weight (Pounds): 217 Respiratory/Chest: lungs clear Cardiovascular: normal rate, regular rhythm, no gallop/murmur Abdomen: soft, non tender Extremities: no edema, other - left foot in bandages Current Medications Medications (Trade) Dose Ordered Sig/Parish Route PRN Reason Start Time Stop Time Status Last Admin Dose Admin Acetaminophen (Tylenol) 650 mg Q4H PRN ORAL mild pain and fever 02/19/20 23:15 03/20/20 23:14 02/29/20 23:57 Acetaminophen/ Hydrocodone Bitart ([place] 10/325) 1 tab Q4H PRN ORAL For Pain 02/28/20 16:00 03/06/20 15:59 03/02/20 21:07 Bisacodyl (Dulcolax) 10 mg DAILYPRN PRN RECTAL Constipation 02/21/20 11:30 05/21/20 11:29 02/27/20 23:54 Ceftriaxone Sodium 1 gm/ Dextrose 55 ml @ 110 mls/hr Q24H IVPB 02/27/20 12:00 03/05/20 11:59 03/02/20 12:02 Chlorhexidine Gluconate (Mulu-Hex 2%) 1 applic DAILY@2000 TOPIC 02/27/20 20:00 05/27/20 19:59 03/02/20 21:06 Dextrose (Dextrose 50%) 25 ml Q30M PRN IV Hypoglycemia 02/19/20 23:15 05/19/20 23:14 Dextrose (Dextrose 50%) 50 ml Q30M PRN IV Hypoglycemia 02/19/20 23:15 05/19/20 23:14 Finasteride (Proscar) 5 mg DAILY ORAL 02/22/20 09:00 05/22/20 08:59 03/03/20 08:36 Heparin Sodium (Porcine) (Heparin 5000 units/ml) 5,000 units EVERY 8 HOURS SUBQ 02/20/20 06:00 04/05/20 05:59 03/03/20 05:58 Insulin Aspart (NovoLOG) BEFORE MEALS AND HS SUBQ 02/20/20 06:30 05/20/20 06:29 03/03/20 05:58 Magnesium Hydroxide (Mom) 30 ml BIDPRN PRN ORAL Constipation 02/21/20 11:30 03/22/20 11:29 02/29/20 20:43 Vancomycin HCl (Vanco rx to dose) 1 ea DAILY PRN MISC Per rx protocol 02/19/20 23:15 03/20/20 23:14 Vancomycin/Sodium Chloride 275 ml @ 183.333 mls/hr Q24H IVPB 02/29/20 14:00 03/05/20 13:59 03/02/20 13:07 Aneudy Mclaughlin MD March 03, 2020 09:52"
[2020-03-03] MEDS: cefTRIAXone 1 GM in D5W 55 ML IVPB SCH (11:41)
[2020-03-03 12:00] VITALS: BP 131/80
--- NOTE | 2020-03-03 12:25 | NUR ---
NURSE NOTES: MD Lamas gave me the order for Lactulose 30 mg BiD PRN and Colace 250mg BID Scheduled; order carried out as order given;
[2020-03-03] MEDS ORDERED: Lactulose 20gm/30ml UDC ORAL PRN (12:30)
[2020-03-03] MEDS: Vancomycin 1.25gm/NS Premix IVPB SCH (14:25)
[2020-03-03 16:00] VITALS: BP 119/89
--- NOTE | 2020-03-03 16:15 | Progress Note ---
DATE: 03/03/2020 SUBJECTIVE: This is a elderly 75-year-old male who came to the emergency room for nonhealing ulcer on the left foot. The patient underwent surgery, debridement, had MRI done which revealed possible osteomyelitis. Blood cultures were positive. The patient was placed on vancomycin. ID is on consult. PICC line is placed. The patient is [facility]. He is still also complaining of constipation, we added Colace and lactulose. PHYSICAL EXAMINATION: VITAL SIGNS: Blood pressure is 124/65, pulse 78, no fever. GENERAL: Alert and oriented x3. SKIN: Good skin turgor. HEENT: NAD. CHEST: Bilateral crackles. CARDIOVASCULAR: Regular rhythm. ABDOMEN: Soft. EXTREMITIES: Left foot is on the bandage. GENITOURINARY: Deferred. LABORATORY DATA: Cultures are positive for Staph aureus MRSA. PLAN: We will currently continue antibiotics. The patient is currently on Colace, lactulose, vancomycin IV daily for 14 days. Continue milk of magnesia, sliding scale, and Accu-Chek. Wound care as outpatient. Arsen Lamas M.D. DR: Kadeem JOB#: [id number] CC:
--- NOTE | 2020-03-03 17:00 | NUR ---
NURSE NOTES: Wound care provided; patient tolerated well;
[2020-03-03] MEDS: Docusate 250mg cap ORAL SCH (17:06)
--- NOTE | 2020-03-03 19:19 | NUR ---
HAND-OFF: Report given to MICHELL Esqueda.
[2020-03-03] MEDS ORDERED: LORazepam 1mg tab ORAL PRN (19:30)
[2020-03-03 20:00] VITALS: BP 144/83
--- NOTE | 2020-03-03 20:00 | NUR ---
NURSE NOTES: Received patient comfortably sleeping, no SOB, kept clean and dry.
[2020-03-03] MEDS: Dyna-Hex 2% Top Sol 2oz TOPIC SCH (21:16)
[2020-03-03] MEDS: HYDROcodone/Acetamin 10/325 tab ORAL PRN (21:19)
[2020-03-04] MEDS: HYDROcodone/Acetamin 10/325 tab ORAL PRN ×4 (02:37→23:51)
[2020-03-04 04:07] VITALS: BP 132/80
[2020-03-04] MEDS: NovoLOG Insulin Flexpen SUBQ SCH ×4 (05:46→20:08)
[2020-03-04] MEDS: Heparin 5000 units/ml inj SUBQ SCH ×3 (05:47→20:09)
--- NOTE | 2020-03-04 07:23 | NUR ---
HAND-OFF: Report given to Lynnette Hess RN.
[2020-03-04 08:00] VITALS: BP 138/74
--- NOTE | 2020-03-04 08:03 | NUR ---
NURSE NOTES: Patient awake and alert,respirations unlabored.Hector wrap dressing noted to left foot,clean elevated on pillows.Patient sitting up in bed and eating breakfast.Call light within reach. Addendum: 03/04/20 at 0820 by ELIZABET QUEZADA RN RN Picc line out,patient state he pulled it.Will notify
--- NOTE | 2020-03-04 08:29 | NUR ---
NURSE NOTES: Noted length of picc line 47cm,noted picc line insertion note from 02/26 radiology was 47cm.DR Lamas was made aware by charge Nurse Jyothi and new order received.
--- NOTE | 2020-03-04 08:30 | NUR ---
CHARGE NURSE NOTE: Pt pulled out his PICC line. notified. pt confused, does not remember anything about taking out PICC line.
--- NOTE | 2020-03-04 08:49 | Urology Progress Note ---
Assessment/Plan Assessment/Plan: 1. Urinary retention history with chronic suprapubic tube. 2. BPH history. 3. Probable neurogenic bladder. 4. Hematuria. 5. Pyuria, rule out infection and colonization. 6. Proteinuria. 7. Renal insufficiency, possibly acute on chronic. monitor clinically maintain SPT, last exchanged 02/19 hand irrigated and do PRN monitor renal fxn abx as ordered cysto later consider renal imaging study proscar added exchange SPT again soon Subjective Allergies: Coded Allergies: No Known Allergies (Unverified , 02/19/20) Subjective all noted, feels fair, s/p foot I+D Objective Last 24 Hour Vital Signs Date Time Temp Pulse Resp B/P (MAP) Pulse Ox O2 Delivery O2 Flow Rate FiO2 03/04/20 04:07 98.4 82 18 132/80 (97) 94 03/04/20 03:07 98.7 03/03/20 21:00 Room Air 03/03/20 20:00 97.8 54 20 144/83 (103) 97 03/03/20 16:00 98.7 89 20 119/89 (99) 97 03/03/20 12:00 97.2 77 18 131/80 (97) 96 03/03/20 09:00 Room Air Intake and Output 03/03/20 03/04/20 19:00 07:00 Intake Total 1366.666 ml 460 ml Output Total 1300 ml 800 ml Balance 66.666 ml -340 ml Intake Oral 460 ml IV Total 366.666 ml Other 1000 ml Output Urine Total 1300 ml 800 ml Microbiology Date/Time Source Procedure Growth Status 02/19/20 19:00 Blood Blood Culture - Final NO GROWTH AFTER 5 DAYS Complete 02/28/20 08:50 Other(Specify in comment) Anaerobic Culture - Final NO ANAEROBES ISOLATED Complete 02/22/20 11:20 Nasopharynx Coronavirus COVID-19 PCR (EVETTE) - Final Complete 02/19/20 20:08 Urine,Clean Catch Urine Culture - Final Pseudomonas Aeruginosa Complete 02/28/20 08:50 Bone Gram Stain - Final Complete 02/28/20 08:50 Aerobic Culture - Final Staphylococcus Aureus - Mrsa Proteus Mirabilis Complete 02/28/20 08:50 Bone Anaerobic Culture - Final NO ANAEROBES ISOLATED Complete Current Medications Medications (Trade) Dose Ordered Sig/Parish Route PRN Reason Start Time Stop Time Status Last Admin Dose Admin Acetaminophen (Tylenol) 650 mg Q4H PRN ORAL mild pain and fever 02/19/20 23:15 03/20/20 23:14 02/29/20 23:57 Acetaminophen/ Hydrocodone Bitart ([place] 10/325) 1 tab Q4H PRN ORAL For Pain 02/28/20 16:00 03/06/20 15:59 03/04/20 02:37 Bisacodyl (Dulcolax) 10 mg DAILYPRN PRN RECTAL Constipation 03/03/20 12:45 05/21/20 11:29 Ceftriaxone Sodium 1 gm/ Dextrose 55 ml @ 110 mls/hr Q24H IVPB 02/27/20 12:00 03/05/20 11:59 03/03/20 11:41 Chlorhexidine Gluconate (Mulu-Hex 2%) 1 applic DAILY@2000 TOPIC 02/27/20 20:00 05/27/20 19:59 03/03/20 21:16 Dextrose (Dextrose 50%) 25 ml Q30M PRN IV Hypoglycemia 02/19/20 23:15 05/19/20 23:14 Dextrose (Dextrose 50%) 50 ml Q30M PRN IV Hypoglycemia 02/19/20 23:15 05/19/20 23:14 Docusate Sodium (Colace) 250 mg BID ORAL 03/03/20 18:00 04/02/20 17:59 03/03/20 17:06 Finasteride (Proscar) 5 mg DAILY ORAL 02/22/20 09:00 05/22/20 08:59 03/03/20 08:36 Heparin Sodium (Porcine) (Heparin 5000 units/ml) 5,000 units EVERY 8 HOURS SUBQ 02/20/20 06:00 04/05/20 05:59 03/04/20 05:47 Insulin Aspart (NovoLOG) BEFORE MEALS AND HS SUBQ 02/20/20 06:30 05/20/20 06:29 03/04/20 05:46 Lactulose (Cephulac) 30 gm BIDPRN PRN ORAL Constipation 03/03/20 12:30 04/02/20 12:29 Lorazepam (Ativan) 1 mg Q8H PRN ORAL For Anxiety 03/03/20 19:30 03/10/20 19:29 Magnesium Hydroxide (Mom) 30 ml BIDPRN PRN ORAL Constipation 02/21/20 11:30 03/22/20 11:29 02/29/20 20:43 Vancomycin HCl (Vanco rx to dose) 1 ea DAILY PRN MISC Per rx protocol 02/19/20 23:15 03/20/20 23:14 Vancomycin/Sodium Chloride 275 ml @ 183.333 mls/hr Q24H IVPB 02/29/20 14:00 04/09/20 13:59 03/03/20 14:25 Laboratory Tests 03/03/20 13:45: Vancomycin Level Trough 15.5H Height (Feet): 5 Height (Inches): 6.00 Weight (Pounds): 217 Objective exam stable SPT in place urine yellow/aris with debris Juan Pineda MD March 04, 2020 08:49
[2020-03-04] MEDS ORDERED: Lidocaine 1% Plain 30 ml INJ PRN (09:00)
[2020-03-04] MEDS ORDERED: Heparin1,000 units/500ml Premix(Conc:2 units/ml) IV PRN (09:00)
--- NOTE | 2020-03-04 09:00 | NUR ---
CHARGE NURSE NOTE: WBC 15.5. notified, no new orders. Addendum: 03/04/20 at 1226 by BRYAN ARRIAGA RN wrong pt lab. notified
[2020-03-04] MEDS: Docusate 250mg cap ORAL SCH ×2 (10:27→18:06)
--- NOTE | 2020-03-04 10:47 | Infectious Diseases Prog Note ---
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 pseudomonas UTI s/p rx 3. diabetes mellitus 4. hypertension 5. leucocytosis improving 6. COVID 19 negative x 2 P 1. continue iv vancomycin, ceftriaxone 36 more days 2. cbc, bmp, lft, vancomycin level q weekly 3. will follow up cultures Subjective ROS Limited/Unobtainable: Yes Allergies: Coded Allergies: No Known Allergies (Unverified , 02/19/20) Objective Vital Signs Last 24 Hour Vital Signs Date Time Temp Pulse Resp B/P (MAP) Pulse Ox O2 Delivery O2 Flow Rate FiO2 03/04/20 10:36 Room Air 03/04/20 08:00 97.4 74 20 138/74 (95) 96 03/04/20 04:07 98.4 82 18 132/80 (97) 94 03/04/20 03:07 98.7 03/03/20 21:00 Room Air 03/03/20 20:00 97.8 54 20 144/83 (103) 97 03/03/20 16:00 98.7 89 20 119/89 (99) 97 03/03/20 12:00 97.2 77 18 131/80 (97) 96 Height (Feet): 5 Height (Inches): 6.00 Weight (Pounds): 217 Respiratory/Chest: lungs clear Cardiovascular: normal rate, regular rhythm, no gallop/murmur Abdomen: soft, non tender Extremities: no edema, other - left foot in bandages Laboratory Tests Test 03/03/20 13:45 Vancomycin Level Trough 15.5 ug/mL (5.0-12.0) H Current Medications Medications (Trade) Dose Ordered Sig/Parish Route PRN Reason Start Time Stop Time Status Last Admin Dose Admin Acetaminophen (Tylenol) 650 mg Q4H PRN ORAL mild pain and fever 02/19/20 23:15 03/20/20 23:14 02/29/20 23:57 Acetaminophen/ Hydrocodone Bitart ([place] 10/325) 1 tab Q4H PRN ORAL For Pain 02/28/20 16:00 03/06/20 15:59 03/04/20 10:27 Bisacodyl (Dulcolax) 10 mg DAILYPRN PRN RECTAL Constipation 03/03/20 12:45 05/21/20 11:29 Ceftriaxone Sodium 1 gm/ Dextrose 55 ml @ 110 mls/hr Q24H IVPB 02/27/20 12:00 03/05/20 11:59 03/03/20 11:41 Chlorhexidine Gluconate (Mulu-Hex 2%) 1 applic DAILY@2000 TOPIC 03/04/20 20:00 06/02/20 19:59 Dextrose (Dextrose 50%) 25 ml Q30M PRN IV Hypoglycemia 02/19/20 23:15 05/19/20 23:14 Dextrose (Dextrose 50%) 50 ml Q30M PRN IV Hypoglycemia 02/19/20 23:15 05/19/20 23:14 Docusate Sodium (Colace) 250 mg BID ORAL 03/03/20 18:00 04/02/20 17:59 03/04/20 10:27 Finasteride (Proscar) 5 mg DAILY ORAL 02/22/20 09:00 05/22/20 08:59 03/04/20 10:27 Heparin Sodium (Porcine) (Heparin 5000 units/ml) 5,000 units EVERY 8 HOURS SUBQ 02/20/20 06:00 04/05/20 05:59 03/04/20 05:47 Heparin Sodium/ Sodium Chloride (Heparin 1000 units/500ml Premix) 1,000 unit ONCE PRN IV PICC PLACEMENT 03/04/20 09:00 03/05/20 23:59 Insulin Aspart (NovoLOG) BEFORE MEALS AND HS SUBQ 02/20/20 06:30 05/20/20 06:29 03/04/20 05:46 Lactulose (Cephulac) 30 gm BIDPRN PRN ORAL Constipation 03/03/20 12:30 04/02/20 12:29 Lidocaine HCl (Xylocaine 1% 30ml) 30 ml ONCE PRN INJ PICC PLACEMENT 03/04/20 09:00 03/05/20 23:59 Lorazepam (Ativan) 1 mg Q8H PRN ORAL For Anxiety 03/03/20 19:30 03/10/20 19:29 Magnesium Hydroxide (Mom) 30 ml BIDPRN PRN ORAL Constipation 02/21/20 11:30 03/22/20 11:29 02/29/20 20:43 Vancomycin HCl (Vanco rx to dose) 1 ea DAILY PRN MISC Per rx protocol 02/19/20 23:15 03/20/20 23:14 Vancomycin/Sodium Chloride 275 ml @ 183.333 mls/hr Q24H IVPB 02/29/20 14:00 04/09/20 13:59 03/03/20 14:25 Aneudy Mclaughlin MD March 04, 2020 10:47"
--- NOTE | 2020-03-04 11:14 | NUR ---
RD ASSESSMENT & RECOMMENDATIONS SEE CARE ACTIVITY FOR COMPLETE ASSESSMENT DAILY ESTIMATED NEEDS: Needs based on wound, DM/ 76kg abw 25-30 kcals/kg 7291-5846 total kcals 1.25-1.5 g protein/kg 95-114 g total protein 25-30 mL/kg 8798-9798 total fluid mLs NUTRITION DIAGNOSIS: Increased protein intake needs R/T wound healing as evidenced by admitted w/ lt heel necrotic ulcer, acute OM per biopsy results. . (CURRENT DIET: CCHO MED) PO DIET RECOMMENDATIONS-->>> CCHO LOW WITH DOUBLE PROTEIN PORTIONS ADDITIONAL RECOMMENDATIONS: * Calibrated bedscale wt for accurate CBW (198lbs vs EMR 217#) * Wound healing- MVI x 1, Vit C 500mg QD Deven BID as tolerated * Rec long acting insulin for improved BG control * Monitor for continued good PO intake * Check A1C .
[2020-03-04 12:00] VITALS: BP 132/78
[2020-03-04] MEDS: cefTRIAXone 1 GM in D5W 55 ML IVPB SCH (12:56)
[2020-03-04] MEDS: Vancomycin 1.25gm/NS Premix IVPB SCH (14:44)
[2020-03-04 16:00] VITALS: BP 133/71
--- NOTE | 2020-03-04 18:13 | NUR ---
NURSE NOTES: Patient resting but complain of left foot pain,patient requesting pain medication,given as ordered. position for comfort,left foot elevate on pillow,dressing intact.Zhang catheter remains in place and draining aris color urine.Call light within reach.
--- NOTE | 2020-03-04 19:34 | NUR ---
HAND-OFF: Report given to CLEO RN,aware of fall risk..
[2020-03-04 19:58] VITALS: BP 147/79
[2020-03-04] MEDS: Dyna-Hex 2% Top Sol 2oz TOPIC SCH (20:00)
[2020-03-04] MEDS: Milk of Magnesia 30ml Ud ORAL PRN (20:06)
--- NOTE | 2020-03-04 20:30 | NUR ---
NURSE NOTES: Pt is in bed,awake and alert. No acute distress noted. Blood sugar 346; NovoLog sliding scale given as ordered. Patient complains of left foot pain, pain medication given as ordered PRN. Dressing dry and intact. Fall precaution in place, bed locked low in place, bed alarm on. Pt will be monitored.
--- NOTE | 2020-03-04 21:00 | NUR ---
NURSE NOTES: Milk of Magnesia given as ordered PRN for constipation.
--- NOTE | 2020-03-04 22:45 | Progress Note ---
DATE: 03/04/2020 SUBJECTIVE: This is a 75-year-old male who came for left foot ulcer, nonhealing osteomyelitis. The patient had a PICC line and was supposed to go home. He pulled his IV line. [facility] and need a PICC line. He is sleeping right now. PHYSICAL EXAMINATION: VITAL SIGNS: Blood pressure 138/74, pulse 74. No fever. CHEST: Bilaterally clear. CARDIOVASCULAR: Regular rhythm. ABDOMEN: Soft. EXTREMITIES: CCE. ASSESSMENT: 1. Osteomyelitis on the left foot. 2. MRSA . 3. Hypertension. 4. Diabetes. 5. Anxiety. PLAN: We will continue current treatment. Waiting for PICC line tomorrow. [facility] with IV vancomycin daily for 14 days. Arsen Lamas M.D. DR: Janet JOB#: [id number] CC:
[2020-03-05] VITALS: BP 137/75
--- NOTE | 2020-03-05 00:22 | Initial Psychiatric Evaluation ---
Psychiatry Consultation Psychiatry Consultation Chief Complaint: Wound Recheck/Suture Removal Allergies: Coded Allergies: No Known Allergies (Unverified , 02/19/20) Medication History Scheduled Amlodipine Besylate (Norvasc), 10 MG ORAL DAILY, (Reported) Ascorbic Acid* (Ascorbic Acid*), 500 MG ORAL TWICE A DAY, (Reported) Aspirin Ec* (Aspirin Ec*), 81 MG ORAL BEDTIME, (Reported) Bisacodyl (Dulcolax), 10 MG RC PRN, (Reported) Cephalexin* (Keflex*), 500 MG ORAL TID, (Reported) Dextran 70/Hypromellose/Pf (Artificial Tears Drops), 1 EACH OP EVERY 4 HOURS, ( Reported) Furosemide* (Lasix*), 40 MG ORAL TWICE A DAY, (Reported) Gabapentin* (Gabapentin*), 600 MG ORAL THREE TIMES A DAY, (Reported) Insulin Aspart (Novolog Flexpen), 2-15 SUBQ AC+HS, (Reported) Insulin Glargine (Lantus), 60 SUBQ BEDTIME, (Reported) Modafinil* (Provigil), 200 MG ORAL DAILY, (Reported) Multivitamin With Minerals (Multivitamins With Minerals*), 1 TAB ORAL DAILY, ( Reported) Tamsulosin HCl (Flomax), 0.8 MG ORAL DAILY, (Reported) Scheduled PRN Acetaminophen* (Acetaminophen 325MG Tablet*), 650 MG ORAL Q4H PRN for For Pain, (Reported) Clonidine HCl (Clonidine HCl), 0.1 MG PO PRN PRN for hypertension, (Reported) Magnesium Hydroxide* (Milk Of Magnesia*), 30 ML ORAL DAILY PRN for Constipation, (Reported) Miscellaneous Medications Ipratropium/Albuterol Sulfate (DuoNeb 0.5-3(2.5)mg/3ml), 3 ML INH, (Reported) Objective Data Height (Feet): 5 Height (Inches): 6.00 Weight (Pounds): 217 Carlos Wesley MD March 05, 2020 00:22
[2020-03-05] MEDS: HYDROcodone/Acetamin 10/325 tab ORAL PRN ×4 (03:56→21:16)
[2020-03-05 04:00] VITALS: BP 140/72
--- NOTE | 2020-03-05 05:15 | NUR ---
NURSE NOTES: Pt slept okay overnight. No acute distress noted.
[2020-03-05 06:55] LABS: BASOPHILS % (AUTO) 0.7 % (0.0-2.0); EOSINOPHILS % (AUTO) 4.5 % (0.0-3.0); HEMOGLOBIN 12.3 G/DL (14.2-18.0); LYMPHOCYTES % (AUTO) 22.3 % (20.0-45.0); MEAN CORPUSCULAR VOLUME 84 FL (80-99); MONOCYTES % (AUTO) 7.8 % (1.0-10.0); NEUTROPHILS % (AUTO) 64.8 % (45.0-75.0); PLATELET COUNT 482 K/UL (150-450); RED BLOOD COUNT 4.42 M/UL (4.70-6.10)
[2020-03-05] MEDS: NovoLOG Insulin Flexpen SUBQ SCH ×4 (06:56→21:18)
[2020-03-05] MEDS: Heparin 5000 units/ml inj SUBQ SCH ×3 (06:57→21:22)
--- NOTE | 2020-03-05 06:59 | NUR ---
NURSE NOTE: NO BM after MOM; lactulose given as ordered PRN.
[2020-03-05 07:08] LABS: ANION GAP 7 mmol/L (5-15); BLOOD UREA NITROGEN 19 mg/dL (7-18); CALCIUM 9.2 MG/DL (8.5-10.1); CARBON DIOXIDE 27 MMOL/L (21-32); CHLORIDE 101 MMOL/L (98-107); CREATININE 1.2 MG/DL (0.55-1.30); POTASSIUM 4.4 MMOL/L (3.5-5.1); SODIUM 135 MMOL/L (136-145)
--- NOTE | 2020-03-05 07:15 | NUR ---
HAND-OFF: Report given to MICHELL Church.Informed that patient is high fall risk.
[2020-03-05 08:00] VITALS: BP 112/72
--- NOTE | 2020-03-05 08:00 | NUR ---
NURSE NOTES: Patient awake and alert,respirations unlabored.Patient debbie wrap dressing to the left foot dry and intact.Toes warm to touch,good color to toes,left leg elevated on pillow.IV saline lock to left arm intact.Bed alarm on,call light within reach. Addendum: 03/05/20 at 0823 by ELIZABET QUEZADA RN RN Zhang catheter is in place,draining clear aris color urine.
[2020-03-05] MEDS: Docusate 250mg cap ORAL SCH ×2 (08:17→18:18)
--- NOTE | 2020-03-05 08:57 | Urology Progress Note ---
Assessment/Plan Assessment/Plan: 1. Urinary retention history with chronic suprapubic tube. 2. BPH history. 3. Probable neurogenic bladder. 4. Hematuria. 5. Pyuria, rule out infection and colonization. 6. Proteinuria. 7. Renal insufficiency, possibly acute on chronic. monitor clinically maintain SPT, last exchanged 02/19 hand irrigated and do PRN monitor renal fxn abx as ordered cysto later consider renal imaging study proscar added exchange SPT again soon Subjective Allergies: Coded Allergies: No Known Allergies (Unverified , 02/19/20) Subjective all noted, feels fair, s/p foot I+D Objective Last 24 Hour Vital Signs Date Time Temp Pulse Resp B/P (MAP) Pulse Ox O2 Delivery O2 Flow Rate FiO2 03/05/20 08:00 97.0 67 20 112/72 (85) 96 03/05/20 04:00 98.2 67 20 140/72 (94) 96 03/05/20 00:00 97.8 65 20 137/75 (95) 96 03/04/20 21:00 Room Air 03/04/20 19:58 97.9 69 20 147/79 (101) 96 03/04/20 16:00 97.3 65 20 133/71 (91) 96 03/04/20 12:00 97.5 67 20 132/78 (96) 96 03/04/20 10:36 Room Air Intake and Output 03/04/20 03/05/20 19:00 07:00 Intake Total 480 ml 360 ml Output Total 500 ml 1000 ml Balance -20 ml -640 ml Intake Oral 480 ml 360 ml Output Urine Total 500 ml 1000 ml # Voids 1 Microbiology Date/Time Source Procedure Growth Status 02/19/20 19:00 Blood Blood Culture - Final NO GROWTH AFTER 5 DAYS Complete 02/28/20 08:50 Other(Specify in comment) Anaerobic Culture - Final NO ANAEROBES ISOLATED Complete 02/22/20 11:20 Nasopharynx Coronavirus COVID-19 PCR (EVETTE) - Final Complete 02/19/20 20:08 Urine,Clean Catch Urine Culture - Final Pseudomonas Aeruginosa Complete 02/28/20 08:50 Bone Gram Stain - Final Complete 02/28/20 08:50 Aerobic Culture - Final Staphylococcus Aureus - Mrsa Proteus Mirabilis Complete 02/28/20 08:50 Bone Anaerobic Culture - Final NO ANAEROBES ISOLATED Complete Current Medications Medications (Trade) Dose Ordered Sig/Parish Route PRN Reason Start Time Stop Time Status Last Admin Dose Admin Acetaminophen (Tylenol) 650 mg Q4H PRN ORAL mild pain and fever 02/19/20 23:15 03/20/20 23:14 03/04/20 20:06 Acetaminophen/ Hydrocodone Bitart ([place] 10/325) 1 tab Q4H PRN ORAL For Pain 02/28/20 16:00 03/06/20 15:59 03/05/20 03:56 Bisacodyl (Dulcolax) 10 mg DAILYPRN PRN RECTAL Constipation 03/03/20 12:45 05/21/20 11:29 Ceftriaxone Sodium 1 gm/ Dextrose 55 ml @ 110 mls/hr Q24H IVPB 02/27/20 12:00 04/09/20 23:59 03/04/20 12:56 Chlorhexidine Gluconate (Mulu-Hex 2%) 1 applic DAILY@2000 TOPIC 03/04/20 20:00 06/02/20 19:59 Dextrose (Dextrose 50%) 25 ml Q30M PRN IV Hypoglycemia 02/19/20 23:15 05/19/20 23:14 Dextrose (Dextrose 50%) 50 ml Q30M PRN IV Hypoglycemia 02/19/20 23:15 05/19/20 23:14 Docusate Sodium (Colace) 250 mg BID ORAL 03/03/20 18:00 04/02/20 17:59 03/04/20 18:06 Finasteride (Proscar) 5 mg DAILY ORAL 02/22/20 09:00 05/22/20 08:59 03/05/20 08:15 Heparin Sodium (Porcine) (Heparin 5000 units/ml) 5,000 units EVERY 8 HOURS SUBQ 02/20/20 06:00 04/05/20 05:59 03/05/20 06:57 Heparin Sodium/ Sodium Chloride (Heparin 1000 units/500ml Premix) 1,000 unit ONCE PRN IV PICC PLACEMENT 03/04/20 09:00 03/05/20 23:59 Insulin Aspart (NovoLOG) BEFORE MEALS AND HS SUBQ 02/20/20 06:30 05/20/20 06:29 03/05/20 06:56 Lactulose (Cephulac) 30 gm BIDPRN PRN ORAL Constipation 03/03/20 12:30 04/02/20 12:29 03/05/20 06:55 Lidocaine HCl (Xylocaine 1% 30ml) 30 ml ONCE PRN INJ PICC PLACEMENT 03/04/20 09:00 03/05/20 23:59 Lorazepam (Ativan) 1 mg Q8H PRN ORAL For Anxiety 03/03/20 19:30 03/10/20 19:29 Magnesium Hydroxide (Mom) 30 ml BIDPRN PRN ORAL Constipation 02/21/20 11:30 03/22/20 11:29 03/04/20 20:06 Vancomycin HCl (Vanco rx to dose) 1 ea DAILY PRN MISC Per rx protocol 02/19/20 23:15 03/20/20 23:14 Vancomycin/Sodium Chloride 275 ml @ 183.333 mls/hr Q24H IVPB 02/29/20 14:00 04/09/20 23:59 03/04/20 14:44 Laboratory Tests 03/05/20 05:45: White Blood Count 11.0H, Red Blood Count 4.42L, Hemoglobin 12.3L, Hematocrit 37.0L, Mean Corpuscular Volume 84, Mean Corpuscular Hemoglobin 27.8, Mean Corpuscular Hemoglobin Concent 33.3, Red Cell Distribution Width 13.0, Platelet Count 482H, Mean Platelet Volume 5.1L, Neutrophils (%) (Auto) 64.8, Lymphocytes (%) (Auto) 22.3, Monocytes (%) (Auto) 7.8, Eosinophils (%) (Auto) 4.5H, Basophils (%) (Auto) 0.7, Sodium Level 135L, Potassium Level 4.4, Chloride Level 101, Carbon Dioxide Level 27, Anion Gap 7, Blood Urea Nitrogen 19H, Creatinine 1.2, Estimat Glomerular Filtration Rate 59.2, Glucose Level 213H, Calcium Level 9.2 Height (Feet): 5 Height (Inches): 6.00 Weight (Pounds): 201 Objective exam stable SPT in place urine yellow/aris with debris Juan Pineda MD March 05, 2020 08:57
--- NOTE | 2020-03-05 10:42 | Infectious Diseases Prog Note ---
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 pseudomonas UTI s/p rx 3. diabetes mellitus 4. hypertension 5. leucocytosis improving 6. COVID 19 negative x 2 P 1. continue iv vancomycin, ceftriaxone 35 more days 2. cbc, bmp, lft, vancomycin level q weekly 3. will follow up cultures Subjective Constitutional: Denies: fever, chills Respiratory: Denies: shortness of breath, dry cough Gastrointestinal/Abdominal: Denies: nausea, vomiting, diarrhea Musculoskeletal: Reports: pain Allergies: Coded Allergies: No Known Allergies (Unverified , 02/19/20) Objective Vital Signs Last 24 Hour Vital Signs Date Time Temp Pulse Resp B/P (MAP) Pulse Ox O2 Delivery O2 Flow Rate FiO2 03/05/20 08:00 97.0 67 20 112/72 (85) 96 03/05/20 04:00 98.2 67 20 140/72 (94) 96 03/05/20 00:00 97.8 65 20 137/75 (95) 96 03/04/20 21:00 Room Air 03/04/20 19:58 97.9 69 20 147/79 (101) 96 03/04/20 16:00 97.3 65 20 133/71 (91) 96 03/04/20 12:00 97.5 67 20 132/78 (96) 96 Height (Feet): 5 Height (Inches): 6.00 Weight (Pounds): 201 Respiratory/Chest: lungs clear Cardiovascular: normal rate, regular rhythm, no gallop/murmur Abdomen: soft, non tender Extremities: no edema, other - left foot in bandages Laboratory Tests Test 03/05/20 05:45 White Blood Count 11.0 K/UL (4.8-10.8) H Red Blood Count 4.42 M/UL (4.70-6.10) L Hemoglobin 12.3 G/DL (14.2-18.0) L Hematocrit 37.0 % (42.0-52.0) L Mean Corpuscular Volume 84 FL (80-99) Mean Corpuscular Hemoglobin 27.8 PG (27.0-31.0) Mean Corpuscular Hemoglobin Concent 33.3 G/DL (32.0-36.0) Red Cell Distribution Width 13.0 % (11.6-14.8) Platelet Count 482 K/UL (150-450) H Mean Platelet Volume 5.1 FL (6.5-10.1) L Neutrophils (%) (Auto) 64.8 % (45.0-75.0) Lymphocytes (%) (Auto) 22.3 % (20.0-45.0) Monocytes (%) (Auto) 7.8 % (1.0-10.0) Eosinophils (%) (Auto) 4.5 % (0.0-3.0) H Basophils (%) (Auto) 0.7 % (0.0-2.0) Sodium Level 135 MMOL/L (136-145) L Potassium Level 4.4 MMOL/L (3.5-5.1) Chloride Level 101 MMOL/L (98-107) Carbon Dioxide Level 27 MMOL/L (21-32) Anion Gap 7 mmol/L (5-15) Blood Urea Nitrogen 19 mg/dL (7-18) H Creatinine 1.2 MG/DL (0.55-1.30) Estimat Glomerular Filtration Rate 59.2 mL/min (>60) Glucose Level 213 MG/DL (74-106) H Calcium Level 9.2 MG/DL (8.5-10.1) Current Medications Medications (Trade) Dose Ordered Sig/Parish Route PRN Reason Start Time Stop Time Status Last Admin Dose Admin Acetaminophen (Tylenol) 650 mg Q4H PRN ORAL mild pain and fever 02/19/20 23:15 03/20/20 23:14 03/04/20 20:06 Acetaminophen/ Hydrocodone Bitart ([place] 10/325) 1 tab Q4H PRN ORAL For Pain 02/28/20 16:00 03/06/20 15:59 03/05/20 03:56 Bisacodyl (Dulcolax) 10 mg DAILYPRN PRN RECTAL Constipation 03/03/20 12:45 05/21/20 11:29 Ceftriaxone Sodium 1 gm/ Dextrose 55 ml @ 110 mls/hr Q24H IVPB 02/27/20 12:00 04/09/20 23:59 03/04/20 12:56 Chlorhexidine Gluconate (Mulu-Hex 2%) 1 applic DAILY@2000 TOPIC 03/04/20 20:00 06/02/20 19:59 Dextrose (Dextrose 50%) 25 ml Q30M PRN IV Hypoglycemia 02/19/20 23:15 05/19/20 23:14 Dextrose (Dextrose 50%) 50 ml Q30M PRN IV Hypoglycemia 02/19/20 23:15 05/19/20 23:14 Docusate Sodium (Colace) 250 mg BID ORAL 03/03/20 18:00 04/02/20 17:59 03/04/20 18:06 Finasteride (Proscar) 5 mg DAILY ORAL 02/22/20 09:00 05/22/20 08:59 03/05/20 08:15 Heparin Sodium (Porcine) (Heparin 5000 units/ml) 5,000 units EVERY 8 HOURS SUBQ 02/20/20 06:00 04/05/20 05:59 03/05/20 06:57 Heparin Sodium/ Sodium Chloride (Heparin 1000 units/500ml Premix) 1,000 unit ONCE PRN IV PICC PLACEMENT 03/04/20 09:00 03/05/20 23:59 Insulin Aspart (NovoLOG) BEFORE MEALS AND HS SUBQ 02/20/20 06:30 05/20/20 06:29 03/05/20 06:56 Lactulose (Cephulac) 30 gm BIDPRN PRN ORAL Constipation 03/03/20 12:30 04/02/20 12:29 03/05/20 06:55 Lidocaine HCl (Xylocaine 1% 30ml) 30 ml ONCE PRN INJ PICC PLACEMENT 03/04/20 09:00 03/05/20 23:59 Lorazepam (Ativan) 1 mg Q8H PRN ORAL For Anxiety 03/03/20 19:30 03/10/20 19:29 Magnesium Hydroxide (Mom) 30 ml BIDPRN PRN ORAL Constipation 02/21/20 11:30 03/22/20 11:29 03/04/20 20:06 Vancomycin HCl (Vanco rx to dose) 1 ea DAILY PRN MISC Per rx protocol 02/19/20 23:15 03/20/20 23:14 Vancomycin/Sodium Chloride 275 ml @ 183.333 mls/hr Q24H IVPB 02/29/20 14:00 04/09/20 23:59 03/04/20 14:44 Aneudy Mclaughlin MD March 05, 2020 10:42"
[2020-03-05 12:00] VITALS: BP 144/81
[2020-03-05] MEDS: cefTRIAXone 1 GM in D5W 55 ML IVPB SCH (12:03)
--- NOTE | 2020-03-05 12:55 | NUR ---
CASE MANAGEMENT:REVIEW SI;LEFT FOOT OSTEOMYELITIS. PSEUDOMONAS UTI. 97.0 71 20 144/81 96% ON RA WBC 11.0 NA 135 BUN 19 BG 213 IS;VANCOMYCIN IV QD HEPARIN IV ONCE FOR PICC PLACEMENT PENG-HEX TOP QD LACTULOSE PO BID PRN ROCEPHIN IV QD PROSCAR PO QD HEPARIN SUBQ Q8 HRS MED SURG STATUS DCP;FROM [facility];PICC PLACEMENT DC TO SNF WHEN STABLE
--- NOTE | 2020-03-05 13:39 | NUR ---
CHARGE NURSE NOTE: PICC LINE insertion team (BONNIE) notified twice, that pt needs a PICC line and scheduled for d/c. Radiology busy.
[2020-03-05] MEDS: Vancomycin 1.25gm/NS Premix IVPB SCH (14:19)
[2020-03-05 16:00] VITALS: BP 120/70
--- NOTE | 2020-03-05 16:21 | NUR ---
RADIOLOGY NOTE: LEFT UPPER EXTREMITY PICC LINE PLACED BY DR. CHUCK GALVAN AT 1555 HRS. FA
--- NOTE | 2020-03-05 16:29 | NUR ---
NURSE NOTES: Patient back from special,picc line placed in upper left arm,message was left for Soraida bottle caser.
--- NOTE | 2020-03-05 16:36 | Pre-Procedure Note/Attestation ---
Pre-Procedure Note/Attestation Complete Prior to Procedure Planned Procedure: not applicable Procedure Narrative: PICC Indications for Procedure Pre-Operative Diagnosis: needs IV access Attestation I attest that I discussed the nature of the procedure; its benefits; risks and complications; and alternatives (and the risks and benefits of such alternatives ), prior to the procedure, with the patient (or the patient's legal claims representative). I attest that, if there was a reasonable possibility of needing a blood transfusion, the patient (or the patient's legal claims representative) was given the [facility] standardized written summary, pursuant to the Manolo Vesta Blood Safety Act ([place] Health and Safety Code # 1645, as amended). I attest that I re-evaluated the patient just prior to the surgery and that there has been no change in the patient's H&P, except as documented below: Beck Vo MD March 05, 2020 16:36
--- NOTE | 2020-03-05 16:37 | Brief Operative Note ---
Immediate Post Operative Note Operative Note Pre-op Diagnosis: needs IV access Procedure: PICC Post-op Diagnosis: same as pre-op Surgeon: Aby Flor Anesthesia: local Specimen: none Complications: none Fluids: NONE Implant(s) used?: No Beck Flor MD March 05, 2020 16:36
--- NOTE | 2020-03-05 16:43 | Diagnostic Imaging Report ---
Indications: Needs long-term IV access Technique: Ultrasound confirms patent compressible left brachial vein. Total sterile technique, including sterile probe cover and sterile gel, hat, mask, sterile gown, large sterile drape, and preparation with 2% chlorhexidine utilized. Local anesthesia with 1% lidocaine. Under real-time ultrasound guidance, puncture vein using 21-gauge needle, documented and archived, passage 0.018 guidewire under direct fluoroscopy, which was used to determine appropriate catheter length, exchange for 4 [place] peel-away sheath. 4 [place] Bard dual-lumen power PICC cut to 44 cm. It was inserted through the peel-away sheath. Peel-away sheath and guidewire removed. Catheter fixed to the skin. Both catheter ports aspirated and flushed. Patient tolerated procedure well, without immediate complication. Digital radiograph documents satisfactory catheter tip position, at the cavoatrial junction. Total fluoroscopy time 3.6 seconds. Total dose area product [id number] mGym2 Total number of images: 1 Impression: Successful placement of left arm PICC under sonographic and fluoroscopic guidance, as described above.
--- NOTE | 2020-03-05 18:20 | NUR ---
NURSE NOTES: Patient resting,patient state some relief from left foot pain,Dressing to left foot changed today,left foot elevated on pillow.Call light within reach. Addendum: 03/05/20 at 1930 by ELIZABET QUEZADA RN RN bed alarm is on.
--- NOTE | 2020-03-05 19:24 | NUR ---
HAND-OFF: Report given to Amanda GALARZA,aware of fall risk..
--- NOTE | 2020-03-05 19:30 | NUR ---
NURSE NOTES: Patient awake in bed, alert and oriented x4, on room air, With PICC on left upper arm, in place. With complaint of pain 7/10. Will medicate as ordered. Safety measures rendered. Will continue to monitor.
[2020-03-05 20:00] VITALS: BP 133/86
[2020-03-05] MEDS: Dyna-Hex 2% Top Sol 2oz TOPIC SCH (21:15)
--- NOTE | 2020-03-06 | NUR ---
NURSE NOTES: Spoke with patient's daughter Sue regarding patient's discharged tonight. Addendum: 03/07/20 at 0149 by DUSTIN CLARK RN This note is for 03/06/20 - 21:45
--- NOTE | 2020-03-06 01:55 | Discharge Summary ---
DATE OF ADMISSION: 02/19/2020 DATE OF DISCHARGE: 03/05/2020 HOSPITAL COURSE: This is a 75-year-old male who came to the emergency room for having foot ulcer and the patient had debridement. MRI was done showing osteomyelitis, growing MRSA. The patient had IV line and PICC line, he pulled out. Now we are going to reinsert it and the patient is going to go back to intermediate. DISCHARGE DIAGNOSES: 1. Osteomyelitis of the foot. 2. Nonhealing ulcer. 3. Hypertension. 4. Diabetes. DIET: He is on 1800 ADA diet. DISCHARGE MEDICATIONS: The patient will continue IV vancomycin for 14 days. Continue rest of the home medications, sliding scale, Accu-Chek, and wound care. The patient is going to go back to the intermediate with bandage and bandages changes will be every third day Arsen Lamas M.D. DR: Kadeem JOB#: [id number] CC:
[2020-03-06 04:00] VITALS: BP 142/86
[2020-03-06] MEDS: Heparin 5000 units/ml inj SUBQ SCH ×3 (06:16→22:00)
[2020-03-06] MEDS: NovoLOG Insulin Flexpen SUBQ SCH ×4 (06:17→20:02)
--- NOTE | 2020-03-06 07:27 | NUR ---
HAND-OFF: Report given to MICHELL Chan and MICHELL Butts.
--- NOTE | 2020-03-06 07:35 | NUR ---
NURSE NOTES: Received patient sitting in hospital bed eating breakfast. Patient is AAO x 2. on RA with no s/s of respiratory distress at this time. BM x 1 last night. PICC to ROSALINA flushing well with blood return and TKO. L forearm pIV TKO. Suprapubic cath in place. Regular C[facility] Med diet. last BS 193 per AC. L foot dressing intact secured with debbie bandage. R foot amputation of toes noted. Pt is bedbound, bed in lowest position, call light within reach. Will continue POC.
--- NOTE | 2020-03-06 07:55 | NUR ---
NURSE NOTES: Received call from Dr. Pineda informing RN that patient's suprapubic catheter will need to replaced prior to DC and to notify him of DC.
[2020-03-06 08:00] VITALS: BP 130/80
[2020-03-06] MEDS: Docusate 250mg cap ORAL SCH ×2 (08:09→18:08)
--- NOTE | 2020-03-06 08:58 | Urology Progress Note ---
Assessment/Plan Assessment/Plan: 1. Urinary retention history with chronic suprapubic tube. 2. BPH history. 3. Probable neurogenic bladder. 4. Hematuria. 5. Pyuria, rule out infection and colonization. 6. Proteinuria. 7. Renal insufficiency, possibly acute on chronic. monitor clinically maintain SPT, last exchanged 02/19 monitor renal fxn abx as ordered cysto later consider renal imaging study proscar added I personally removed and exchanged SPT new 20f cath placed hand irrigated and position satisfactory rec exchange SPT q 3 weeks outpt f/u Subjective Allergies: Coded Allergies: No Known Allergies (Unverified , 02/19/20) Subjective all noted, feels fair, s/p foot I+D, DC planning Objective Last 24 Hour Vital Signs Date Time Temp Pulse Resp B/P (MAP) Pulse Ox O2 Delivery O2 Flow Rate FiO2 03/06/20 08:00 97.7 75 18 130/80 (97) 97 03/06/20 04:00 97.3 72 18 142/86 (104) 96 03/05/20 21:00 Room Air 03/05/20 20:00 97.0 68 18 133/86 (102) 97 03/05/20 16:00 96.9 70 19 120/70 (87) 98 03/05/20 12:00 97.5 71 19 144/81 (102) 96 03/05/20 09:00 Room Air Intake and Output 03/05/20 03/06/20 19:00 07:00 Intake Total 480 ml 300 ml Output Total 900 ml 1100 ml Balance -420 ml -800 ml Intake Oral 480 ml 300 ml Output Urine Total 900 ml 1100 ml # Bowel Movements 2 Microbiology Date/Time Source Procedure Growth Status 02/19/20 19:00 Blood Blood Culture - Final NO GROWTH AFTER 5 DAYS Complete 02/28/20 08:50 Other(Specify in comment) Anaerobic Culture - Final NO ANAEROBES ISOLATED Complete 02/22/20 11:20 Nasopharynx Coronavirus COVID-19 PCR (EVETTE) - Final Complete 02/19/20 20:08 Urine,Clean Catch Urine Culture - Final Pseudomonas Aeruginosa Complete 02/28/20 08:50 Bone Gram Stain - Final Complete 02/28/20 08:50 Aerobic Culture - Final Staphylococcus Aureus - Mrsa Proteus Mirabilis Complete 02/28/20 08:50 Bone Anaerobic Culture - Final NO ANAEROBES ISOLATED Complete Current Medications Medications (Trade) Dose Ordered Sig/Parish Route PRN Reason Start Time Stop Time Status Last Admin Dose Admin Acetaminophen (Tylenol) 650 mg Q4H PRN ORAL mild pain and fever 02/19/20 23:15 03/20/20 23:14 03/04/20 20:06 Acetaminophen/ Hydrocodone Bitart ([place] 10/325) 1 tab Q4H PRN ORAL For Pain 02/28/20 16:00 03/06/20 15:59 03/05/20 21:16 Bisacodyl (Dulcolax) 10 mg DAILYPRN PRN RECTAL Constipation 03/03/20 12:45 05/21/20 11:29 Ceftriaxone Sodium 1 gm/ Dextrose 55 ml @ 110 mls/hr Q24H IVPB 02/27/20 12:00 04/09/20 23:59 03/05/20 12:03 Chlorhexidine Gluconate (Mulu-Hex 2%) 1 applic DAILY@2000 TOPIC 03/04/20 20:00 06/02/20 19:59 03/05/20 21:15 Dextrose (Dextrose 50%) 25 ml Q30M PRN IV Hypoglycemia 02/19/20 23:15 05/19/20 23:14 Dextrose (Dextrose 50%) 50 ml Q30M PRN IV Hypoglycemia 02/19/20 23:15 05/19/20 23:14 Docusate Sodium (Colace) 250 mg BID ORAL 03/03/20 18:00 04/02/20 17:59 03/06/20 08:09 Finasteride (Proscar) 5 mg DAILY ORAL 02/22/20 09:00 05/22/20 08:59 03/06/20 08:08 Heparin Sodium (Porcine) (Heparin 5000 units/ml) 5,000 units EVERY 8 HOURS SUBQ 02/20/20 06:00 04/05/20 05:59 03/06/20 06:16 Insulin Aspart (NovoLOG) BEFORE MEALS AND HS SUBQ 02/20/20 06:30 05/20/20 06:29 03/06/20 06:17 Lactulose (Cephulac) 30 gm BIDPRN PRN ORAL Constipation 03/03/20 12:30 04/02/20 12:29 03/05/20 06:55 Lorazepam (Ativan) 1 mg Q8H PRN ORAL For Anxiety 03/03/20 19:30 03/10/20 19:29 Magnesium Hydroxide (Mom) 30 ml BIDPRN PRN ORAL Constipation 02/21/20 11:30 03/22/20 11:29 03/04/20 20:06 Vancomycin HCl (Vanco rx to dose) 1 ea DAILY PRN MISC Per rx protocol 02/19/20 23:15 03/20/20 23:14 Vancomycin/Sodium Chloride 275 ml @ 183.333 mls/hr Q24H IVPB 02/29/20 14:00 04/09/20 23:59 03/05/20 14:19 Height (Feet): 5 Height (Inches): 6.00 Weight (Pounds): 201 Objective exam stable SPT in place urine yellow/aris with debris Juan Pineda MD March 06, 2020 08:58
--- NOTE | 2020-03-06 10:10 | NUR ---
*-*DISCHARGE PLANNED*-* PATIENT HAS BEEN ACCEPTED AND WILL BE DISCHARGED BACK TO: [facility] ([place]) P: [phone] FOR NURSE TO NURSE REPORT ROOM#14.A SKILLED [facility] SET FOR WILL CALL S/W LISBETH [id number]. S/W PATIENTS DAUGHTER, ZAC MILTON, WHO IS IN AGREEMENT WITH DISCHARGE PLAN.
--- NOTE | 2020-03-06 10:13 | NUR ---
DISCHARGE PLANNING DR SHI GAVE DC ORDER TO RETURN TO SNF. NOTED AND CARRIED OUT GIVEN. MICHELL OLEA INFORMED.
--- NOTE | 2020-03-06 10:21 | NUR ---
NURSE NOTES: Pt is planned for DC today. Notified Dr. Pineda's office. Awaiting response. Will continue to f/u.
[2020-03-06 12:00] VITALS: BP 132/70
--- NOTE | 2020-03-06 12:00 | Infectious Diseases Prog Note ---
Assessment/Plan Assessment/Plan A; 1. Left foot ulcer infection , osteomyelitis & abscess Wound culture: MRSA, Enterococcus & Proteus 2. Pneumonia COVID19 X 2: negative 3. Diabetes. 4. Hypertension. 5. Sepsis 6. UTI treated PLAN: 1. Continue IV vancomycin and Ceftriaxone X 34 days Subjective ROS Limited/Unobtainable: Yes Constitutional: Denies: fever Allergies: Coded Allergies: No Known Allergies (Unverified , 02/19/20) Objective Vital Signs Last 24 Hour Vital Signs Date Time Temp Pulse Resp B/P (MAP) Pulse Ox O2 Delivery O2 Flow Rate FiO2 03/06/20 09:00 Room Air 03/06/20 08:00 97.7 75 18 130/80 (97) 97 03/06/20 04:00 97.3 72 18 142/86 (104) 96 03/05/20 21:00 Room Air 03/05/20 20:00 97.0 68 18 133/86 (102) 97 03/05/20 16:00 96.9 70 19 120/70 (87) 98 03/05/20 12:00 97.5 71 19 144/81 (102) 96 Height (Feet): 5 Height (Inches): 6.00 Weight (Pounds): 201 General Appearance: no acute distress HEENT: mucous membranes moist Respiratory/Chest: lungs clear Cardiovascular: normal rate, other - PICC line Abdomen: soft, non tender Extremities: no edema Skin: other - left foot dressing Neurologic/Psychiatric: other - sleeping Current Medications Medications (Trade) Dose Ordered Sig/Parish Route PRN Reason Start Time Stop Time Status Last Admin Dose Admin Acetaminophen (Tylenol) 650 mg Q4H PRN ORAL mild pain and fever 02/19/20 23:15 03/20/20 23:14 03/04/20 20:06 Acetaminophen/ Hydrocodone Bitart ([place] 10/325) 1 tab Q4H PRN ORAL For Pain 02/28/20 16:00 03/06/20 15:59 03/05/20 21:16 Bisacodyl (Dulcolax) 10 mg DAILYPRN PRN RECTAL Constipation 03/03/20 12:45 05/21/20 11:29 Ceftriaxone Sodium 1 gm/ Dextrose 55 ml @ 110 mls/hr Q24H IVPB 02/27/20 12:00 04/09/20 23:59 03/05/20 12:03 Chlorhexidine Gluconate (Mulu-Hex 2%) 1 applic DAILY@2000 TOPIC 03/04/20 20:00 06/02/20 19:59 03/05/20 21:15 Dextrose (Dextrose 50%) 25 ml Q30M PRN IV Hypoglycemia 02/19/20 23:15 05/19/20 23:14 Dextrose (Dextrose 50%) 50 ml Q30M PRN IV Hypoglycemia 02/19/20 23:15 05/19/20 23:14 Docusate Sodium (Colace) 250 mg BID ORAL 03/03/20 18:00 04/02/20 17:59 03/06/20 08:09 Finasteride (Proscar) 5 mg DAILY ORAL 02/22/20 09:00 05/22/20 08:59 03/06/20 08:08 Heparin Sodium (Porcine) (Heparin 5000 units/ml) 5,000 units EVERY 8 HOURS SUBQ 02/20/20 06:00 04/05/20 05:59 03/06/20 06:16 Insulin Aspart (NovoLOG) BEFORE MEALS AND HS SUBQ 02/20/20 06:30 05/20/20 06:29 03/06/20 06:17 Lactulose (Cephulac) 30 gm BIDPRN PRN ORAL Constipation 03/03/20 12:30 04/02/20 12:29 03/05/20 06:55 Lorazepam (Ativan) 1 mg Q8H PRN ORAL For Anxiety 03/03/20 19:30 03/10/20 19:29 Magnesium Hydroxide (Mom) 30 ml BIDPRN PRN ORAL Constipation 02/21/20 11:30 03/22/20 11:29 03/04/20 20:06 Vancomycin HCl (Vanco rx to dose) 1 ea DAILY PRN MISC Per rx protocol 02/19/20 23:15 03/20/20 23:14 Vancomycin/Sodium Chloride 275 ml @ 183.333 mls/hr Q24H IVPB 02/29/20 14:00 04/09/20 23:59 03/05/20 14:19 Hill Rodriguez MD March 06, 2020 12:00
[2020-03-06] MEDS: cefTRIAXone 1 GM in D5W 55 ML IVPB SCH (12:27)
--- NOTE | 2020-03-06 13:05 | NUR ---
NURSE NOTES: Received call back from Dr. Pineda. Suprapubic catheter will be changed between [id number] this evening. Relayed info to CM. Will continue to f/u.
[2020-03-06] MEDS: Vancomycin 1.25gm/NS Premix IVPB SCH (13:52)
[2020-03-06 16:00] VITALS: BP 139/80
[2020-03-06] MEDS ORDERED: ATORVASTATIN CA40 MG ORAL (16:17)
[2020-03-06] MEDS ORDERED: VANCOMYCIN1.25 GM/12 IV ×2 (16:19→16:20)
[2020-03-06] MEDS ORDERED: CEFTRIAXON1 GM/50 ML IV (16:19)
--- NOTE | 2020-03-06 18:00 | NUR ---
NURSE NOTES: Called [facility] to provide report and s/w MAIKEL Trotter. Per Rose Marie, they do not want to receive report until patient's suprapubic catheter has been inserted. Will endorse to next shift nurse.
--- NOTE | 2020-03-06 19:00 | NUR ---
NURSE NOTES: S/w Kristan of [facility] and arranged BLS transport for pick-up at 2029. Patient is still awaiting suprapubic catheter replacement to be done by Dr. Pineda this evening. Will endorse to next shift RN.
--- NOTE | 2020-03-06 19:14 | NUR ---
HAND-OFF: Report given to MICHELL Kim. Endorsed to give report to SNF when patient is ready for DC. Informed of ambulance transport pick-up time at 2029.
[2020-03-06 20:00] VITALS: BP 127/75
[2020-03-06] MEDS: Dyna-Hex 2% Top Sol 2oz TOPIC SCH (20:00)
[2020-03-06] MEDS ORDERED: PROSCAR5 MG ORAL (21:07)
--- NOTE | 2020-03-06 21:30 | Progress Note ---
DATE: 03/06/2020 SUBJECTIVE: This is a 75-year-old male who came with nonhealing ulcer, osteomyelitis on the left foot. Patient underwent surgery, was placed on antibiotics. Podiatry was on consult. ID is also on consult. Recommended 14 days of antibiotics. Patient is going to go back to assisted with IV antibiotics. PICC line is in place. PHYSICAL EXAMINATION: VITAL SIGNS: Blood pressure 132/70, pulse 80, no fever. CHEST: Bilaterally clear. CARDIOVASCULAR: Regular rhythm. ABDOMEN: Soft. EXTREMITIES: CCE. Left foot is in bandage. LABORATORY DATA: His white counts are 11,000 on 03/05/2020, hemoglobin 12. Chemistry panel, patient's BUN 19, creatinine 1.2, glucose 213. HOSPITAL COURSE: Patient had debridement. ID consult and Podiatry consult. Patient was given IV antibiotics. He is physically doing better. Going to go back to the assisted with IV antibiotics and home medications. DISCHARGE DIAGNOSES: 1. Osteomyelitis on the left foot. 2. Diabetes. 3. Hypertension. DIET: He is on 1800-ADA diet. ACTIVITIES: Mostly patient is wheelchair bound. DISCHARGE MEDICATIONS: See the list from the hospital. Arsen Lamas M.D. DR: FIORELLA JOB#: [id number] CC:
--- NOTE | 2020-03-06 21:30 | NUR ---
NURSE NOTES: Suprapubic catheter was changed by Dr. Pineda at bedside. 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
--- NOTE | 2020-03-06 21:55 | NUR ---
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
--- NOTE | 2020-03-06 22:30 | NUR ---
NURSE NOTES: Report given to Doni WAITE RN including antibiotic treatments and Proscar order.
--- NOTE | 2020-03-06 23:15 | NUR ---
NURSE NOTES: Patient picked by [facility] to [facility]. With suprapubic catheter Fr. 30 connected to drainage bag. With PICC on left upper arm double lumen cath, flushed. Belongings checked and given to patient. Packet and report given to [facility] staff.
--- NOTE | 2020-03-06 23:30 | Psych Consult Progress Note ---
Psychiatry Progress Note Psychiatry Progress Note Neurological/Psychiatric: Reports: anxiety, depressed, emotional problems Allergies: Coded Allergies: No Known Allergies (Unverified , 02/19/20) Objective Data Height (Feet): 5 Height (Inches): 6.00 Weight (Pounds): 201 General Appearance: WD/WN, no apparent distress, alert, agitated Behavior Mannerisms: good eye contact Mental Status Exam - Affect: blunted Mental Status Exam - Thought C: paranoia Mental Status Exam - Suicidal: not present Carlos Wesley MD March 06, 2020 23:30
== END 2020-03-06 23:15 | DRG 478 ==
LOC: EDBD 18:09 → EMR 18:51 → 4E 18:57 → EDBEDREQ 21:07 → 4E 03-03 17:02
PROC: 02HV33Z Insertion of Infusion Device into Superior Vena Cava, Percutaneous Approach (ICD-10-PCS; principal; 2020-02-27)
PROC: B518ZZA Fluoroscopy of Superior Vena Cava, Guidance (ICD-10-PCS; principal; 2020-02-27)
PROC: 0KBW0ZZ Excision of Left Foot Muscle, Open Approach (ICD-10-PCS; 2020-02-28)
PROC: 0QBM3ZX Excision of Left Tarsal, Percutaneous Approach, Diagnostic (ICD-10-PCS; 2020-02-28)
PROC: 02HV33Z Insertion of Infusion Device into Superior Vena Cava, Percutaneous Approach (ICD-10-PCS; 2020-03-05)
PROC: B518ZZA Fluoroscopy of Superior Vena Cava, Guidance (ICD-10-PCS; 2020-03-05)
DX: M86.172 Other acute osteomyelitis, left ankle and foot (principal); L03.116 Cellulitis of left lower limb; N39.0 Urinary tract infection, site not specified; L02.612 Cutaneous abscess of left foot; E11.621 Type 2 diabetes mellitus with foot ulcer; B96.4 Proteus (mirabilis) (morganii) as the cause of diseases classified elsewhere; E11.22 Type 2 diabetes mellitus with diabetic chronic kidney disease; I12.9 Hypertensive chronic kidney disease with stage 1 through stage 4 chronic kidney disease, or unspecified chronic kidney disease; N18.9 Chronic kidney disease, unspecified; N40.1 Benign prostatic hyperplasia with lower urinary tract symptoms; R33.8 Other retention of urine; Z89.431 Acquired absence of right foot; F32.9 Major depressive disorder, single episode, unspecified; F41.9 Anxiety disorder, unspecified; Z74.01 Bed confinement status; N31.9 Neuromuscular dysfunction of bladder, unspecified; R31.9 Hematuria, unspecified; B96.5 Pseudomonas (aeruginosa) (mallei) (pseudomallei) as the cause of diseases classified elsewhere; B95.62 Methicillin resistant Staphylococcus aureus infection as the cause of diseases classified elsewhere; G89.29 Other chronic pain
CPT/HCPCS: 36415; 36569; 71045; 76937; 80048; 80053; 80202; 81003; 82550; 82553; 82962; 83605; 83690; 83735; 83880; 84100; 84484; 85025; 85610; 85730; 87040; 87070; 87075; 87086; 87181; 87205; 87635; 93005; 94003; 94150; 96365; 96366; 96368; 99285; J1815